=== PATIENT | male | born 1960 | race Two or more races ===

== ENCOUNTER → 2017-02-06 | Outpatient (REF) | payer MEDICAID | LOC: M LAB REF 08:30 | DX: L57.0 Actinic keratosis (principal) ==

== ENCOUNTER → 2017-05-20 | Outpatient (CLI) | payer OTHER ==
--- NOTE | 2017-06-10 01:04 | ECWPNPC ---
PATIENT NAME: DON CARMONA : 1960 GENDER: MALE VISIT DATE: 05/20/2017 DISCHARGE DATE: 05/20/17 1447 VISIT LOCKED DATE TIME: PHYSICIAN: RADHA LANG RESOURCE: RADHA LANG REASON FOR APPOINTMENT 1. LUMBAR HISTORY OF PRESENT ILLNESS NEW PATIENT CONSULT: WHEN DID YOUR PAIN FIRST START? . BRIEFLY DESCRIBE HOW YOUR PAIN STARTED? . HOW DOES YOUR PAIN CHANGE WITH TIME? . DOES YOUR PAIN AWAKEN YOU FROM SLEEP? . HOW MANY HOURS OF SLEEP DO YOU NORMALLY GET? . ANY DIAGNOSTIC TESTING? . FACILITY WHERE TESTS WERE DONE? ____. PAIN TREATMENT TREATMENT YES CANCER HAVE YOU EVER HAD ANY TYPE OF CANCER?NO NO. PAIN SCREENING: PATIENT HAS A COMPLAINT OF ACUTE OR CHRONIC PAIN :YES FALL RISK SCREENING: SCREENING :NO FALLS IN THE PAST YEAR MAGUIRE INVENTORY: QUESTIONNAIRE ASSESSEDYES SCORE VALUE CALCULATED YES SCORE: 22/63 DENIES SUICIDAL OR HOMICIDAL IDEATION TODAY'S VISIT: NOTES: PT REFERRED BY DR MARIA G PENNY FROM [facility] FOR FURTHER EVAL AN D TREATMENT OF LOW BACK AND CERVICAL PAIN. WAS PREVIOUSLY SEEN AT [facility] WITH LAST VISIT THERE 2 MONTHS AGO. REPORTS PAIN X 30 + YEARS THIS WAXES AND WANES. THIS IS MANAGEABLE. REPORTS WORST AREA OF PAIN IS IN LEGS L>R DUE TO THE CIRCULATION. HE HAS BEEN FOLLOWING WITH DR JASON PREVIOUSLY AT [facility]. STATES THAT LEG PAIN GOES AWAY IN 20 MINUNTES IF LAYING FLAT. NOTES HAS LITTLE TO NO SENSATION OVER LEFT LEG FROM KNEE TO FOOT. LEG IS SWOLLEN, AND BLUE IPURPLE IN COLOR. STATES SAY PCP DR GORDON YESTERDAY AND THE [facility] RECENTLY AND A NEW SURGERY IS BEING PLANNED FOR THIS. NOTES AN ICE PICK LIKE PAIN IN NECK AND ANY BENDING OR STRETCHING OR LIFTING IN LOW BACK. STATES PT MADE THINGS WORSE. WAS PREVIOUSLY ON TRAMADOL AND OTHER PAIN MEDS BUT THESE WERE STOPPED BY HIS PRIMARY CARE PROVIDER. LYRICA IS HELP WITH PAIN AND SENSITIVITY IN FEET. NO INJECTION TTREATMENTS HAVE BEEN DONE. RATES PAIN TODAY 8/10. DESCRIBES THE PAIN CONSTANT, SHARP SHOOTING AND THROBBING. PAIN IS CENTERED IN LOW LIBRA/SACRUM AND ENTIRE LEFT LEG.. CURRENT MEDICATIONS UNKNOWN AMLODIPINE BESYLATE 10 MG TABLET 1 TABLET ORALLY ONCE A DAY UNKNOWN ATORVASTATIN CALCIUM 40 MG TABLET 1 TABLET ORALLY ONCE A DAY UNKNOWN PLAVIX 75 MG TABLET 1 TABLET ORALLY ONCE A DAY UNKNOWN GLIMEPIRIDE 1 MG TABLET 1 TABLET WITH BREAKFAST OR THE FIRST MAIN MEAL OF THE DAY ORALLY ONCE A DAY UNKNOWN HYDROCHLOROTHIAZIDE 12.5 MG CAPSULE 1 CAPSULE IN THE MORNING ORALLY ONCE A DAY UNKNOWN LISINOPRIL 20 MG TABLET 1 TABLET ORALLY ONCE A DAY UNKNOWN METFORMIN HCL 1000 MG TABLET 1 TABLET WITH MEALS ORALLY TWICE A DAY UNKNOWN PENTOXIFYLLINE ER 400 MG TABLET EXTENDED RELEASE 1 TABLET WITH MEALS ORALLY THREE TIMES DAILY UNKNOWN LYRICA 200 MG CAPSULE 1 CAPSULE ORALLY TID MEDICATION LIST REVIEWED AND RECONCILED WITH THE PATIENT PAST MEDICAL HISTORY OSTEO ARTHRITIS DEGENERATIVE DISC DISEASE LUMBAR STENOSIS SKIN CANCER HEART MURMUR DIEBETES VASCULAR ARTERY DISEASE ALLERGIES AMPICILLIN: RASH SURGICAL HISTORY LEFT FEMORAL TO ILIAC BYPASS WITH PTFE GRAFT WITH STENT 2014 RIGHT ILIAC ARTERY/STENT 2015 FAMILY HISTORY FATHER: , DIAGNOSED WITH OTHER MOTHER: , DIAGNOSED WITH DIABETES SIBLINGS: UNKNOWN, DIAGNOSED WITH DIABETES, HEART DISEASE DAUGHTER(S): ALIVE YOUNGER SIBLINGS OF DSIEBETES3 CHILDREN. SOCIAL HISTORY GENERAL: TOBACCO USE ARE YOU A:CURRENT SMOKER HOW MANY CIGARETTES A DAY DO YOU SMOKE?21-30 HOW SOON AFTER YOU WAKE UP DO YOU SMOKE YOUR FIRST CIGARETTE?WITHIN 5 MIN HOW OFTEN DO YOU SMOKE CIGARETTES?EVERY DAY PATIENT COUNSELED ON THE DANGERS OF TOBACCO USE AND URGED TO QUIT:05/20/2017 ARE YOU INTERESTED IN QUITTING?THINKING ABOUT QUITTING COUNSELED THE PATIENT ON SMOKING CESSATION, EDUCATION [id number]/20/2017 ALCOHOL SCREENING POINTS2 INTERPRETATIONNEGATIVE OCCUPATION: DISABLED/ USE TO WORK IN [employer]. DIET: TRYING NOT TO USE SALT. EXERCISE: NONE. MARITAL STATUS: WICE. OTHERS AT HOME: VES ALONE. PETS: NONE. CHRISTIAN CHRISTIAN NO PREFERECE LANGUAGE LANGUAGES SPOKEN:ARMENIAN EDUCATION LEVEL OF EDUCATION:HIGH SCHOOL LEARNING BARRIERS / SPECIAL NEEDS BARRIERS TO LEARNING?YES SPECIAL DEVICES?YES PT USES [facility] PFS, CLERGY, PUBLIC HEALTH REFERRALS CLERGY REFERRAL NEEDED?NO WAS THE PROVIDER NOTIFIED OF ANY PERTINENT INFO?NO PFS REFERRAL NEEDED?NO PUBLIC HEALTH REFERRAL NEEDED?NO PATIENT: ____. HOSPITALIZATION/MAJOR DIAGNOSTIC PROCEDURE JUST FOR THE STENT PLACEMENTS REVIEW OF SYSTEMS REVIEWED BY: PROVIDER: RADHA WINN . CONSTITUTIONAL: ANY CHANGE IN YOUR MEDICAL CONDITION? NO . CHILLS NO . FEVER NO . INFECTION: DO YOU HAVE NEW INFECTIONS? NO . DO YOU HAVE HISTORY OF MRSA? NO . MUSCULOSKELETAL: ANY NEW PATTERNS OF PAIN OR NUMBNESS? NO . SYTEMIC LUPUS NO . GASTROENTEROLOGY: ANY NEW CHANGE IN BOWEL CONTROL? NO . BARRETTS ESOPHAGUS NO . CIRRHOSIS NO . HEPATITIS NO . LIVER FAILURE NO . ACID REFLUX NO . UNEXPLAINED WEIGHT LOSS NO . GENITOURINARY: ANY NEW CHANGE IN BLADDER CONTROL? NO . IS THERE A CHANCE YOU COULD BE ? NO . HEMATOLOGY/LYMPH: DO YOU TAKE ANY BLOOD THINNERS? (FOR EXAMPLE- COUMADIN, PLAVIX, AGGRENOX, PLATEL, PRADAXA, OR XARELTO) YES PLAVIX . WHEN WAS YOUR LAST DOSE? DATE: TIME: . LOW PLATELET COUNT NO . SICKLE CELL DISEASE NO . VON WILLIEBRANDS NO . FACTOR V LEIDEN NO . THALLASEMIA NO . ANEMIA NO . EASY BRUISING NO . NEUROLOGY: HAVE YOU FALLEN IN THE PAST 6 MONTHS? NO . ANY NEW EXTREMITY NUMBNESS OR WEAKNESS? NO . HEAD INJURY NO . DEMENTIA NO . CEREBRAL PALSY NO . MULTIPLE SCLEROSIS NO . DIZZINESS NO . HEADACHE BILATERAL FROM SUNLIGHT . STROKES NO . VERTIGO WHILE GETTING UP FROM A SITTING POSITION . CARDIOLOGY: DO YOU HAVE A PACEMAKER OR DEFIBRILLATOR? NO . ANGINA NO . HEART ATTACK NO . HEART SURGERY NO . CONGESTIVE HEART FAILURE/FLUID OVERLOAD NO . CHEST PAIN NO . HIGH BLOOD PRESSURE ON MEDICATION(S) . IRREGULAR HEART BEAT NO . RESPIRATORY: HAVE YOU BEEN SICK IN THE PAST WEEK? NO . FEVER NO . FLU LIKE SYMPTOMS? NO . CPAP NO . BYPAP NO . ASTHMA NO . EMPHYSEMA NO . CHRONIC LUNG DISEASES NO . SHORTNESS OF BREATH ON EXERTION NO . DO YOU USE ANY TYPE OF TOBACCO (SMOKE, SMOKELESS, CHEW)? YES WORKING ON SMOKING CESSATION . COUGH NO . SNORING NO . INTEGUMENTARY: DO YOU HAVE ANY RASHES OR OPEN SORES? NO LEFT LEG IS RED AND SWOLLEN . ALLERGIC/IMMUNO: ARE YOU ALLERGIC TO SHELLFISH OR IV DYE? NO . ANY NEW ALLERGIES? NO . PSYCHIATRIC: DO YOU HAVE THOUGHTS OF HURTING YOURSELF OR SOMEONE ELSE? NO . ARE YOU ABUSED, NEGLECTED, OR IN AN UNSAFE ENVIRONMENT? NO . ENDOCRINOLOGY: ARE YOU DIABETIC? YES BLOOD SUGARS 150 - 300 . THYROID DISORDER NO . OTHER: DO YOU NEED ANY PRESCRIPTIONS? NO . IF YES, PLEASE LIST: ____ . ANY NEW PROBLEMS WITH YOUR MEDICATIONS? NO . WHEN DID YOU LAST EAT? ____ . WHEN DID YOU LAST DRINK? ____ . WHAT DID YOU LAST DRINK? ____ . NAME OF PERSON DRIVING YOU HOME? ____ . DO YOU HAVE ANY OTHER QUESTIONS OR CONCERNS NO . VITAL SIGNS WT 222.0 LBS, HT 67", BMI 34.77 INDEX, BP 150/66 MM HG, HR 75 /MIN, RR 16 /MIN, TEMP 97.7 F, OXYGEN SAT % 96%, NA INITIALS TL 1321, REVIEWED BY: KG. EXAMINATION GENERAL EXAMINATION: PSYCHALERT , ORIENTED X 3 , APPROPRIATE MOOD AND AFFECT , TALKATIVE BUT HAS DIFFICULTY REMAINING ON [employer]. HEENT:NORMOCEPHALIC, NO LYMPHADENOPATHY, NO THYROMEGLY. LUNGS:CLEAR TO AUSCULTATION, DECREASED AIR ENTRY AT BASES, NO WHEEZES, RALES OR RHONCHI. HEART:NO CAROTID BRUITS, NORMAL S1S2, HEART RATE REGULAR. ABDOMEN:BOWEL SOUNDS ACTIVE. TENDER TO PALPATIO OVER LEFT ILIO-INGUINAL /SCAR AREA. . MUSCULOSKELETAL:GENERALIZED DECREASE IN MUSCLE STRENGTH BILATERAL LOWER EXTREMITIES, L>R. GENRALIZED TENDERNESS WITH PALPATION OVER LUMBAR SPINOUS PROCESSES. NO SPECIFIC SI JOINT TENDERNESS. NEGATIVE SLR. NEG GLADYS SIGN. . EXTREMITIES:1+, EDEMA BILATERAL LOWER EXTREMITY. PEDAL PULSE TRACE TO ABSENT LEFT, 2 + RIGHT DP. LEFT FOOT DUSKY PURPLE IN COLOR. . DIAGNOSTIC TESTS REVIEWEDMRI OF LUMBAR SPINE COMPLETED 10/25/16 REVIEWED. DEMONSTRATES DISC DESSICATION, ANNULAR TEARS WITHIN THE DISCS AT L4-5 AND L5-S1. MILD POSTERIOR DISC HERNIATION AT L5-S1 WHICH DOES NOT CAUSE SIGNIFICANT COMPROMISE OF SPINAL CORD. MULTIPLE LEVELS OF DISC OSTEOPHYTE COMPLEXES. MILD TO MODERAT SPINAL CANAL STENOSIS AT L4-5. 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 PROCEDURE CODES FA211 ESTABILISHED PATIENT [facility] CHARGE DISPOSITION & COMMUNICATION FOLLOW UP 1 MONTH (REASON: BACK PAIN/LEG PAIN) ELECTRONICALLY SIGNED BY MASOOD CHE ON 06/09/2017 AT 08:39 AM EDT DISCLAIMER : THIS IS A VISIT SUMMARY EXTRACTED FROM THE [employer] CHART. IT IS NOT A COPY OF THE [employer] PROGRESS NOTE. ABRAN
== END ==
LOC: M PAIN 13:20
PROVIDERS: ATTEND Nurse Practitioner Family
DX: M51.26 Other intervertebral disc displacement, lumbar region (principal); G58.9 Mononeuropathy, unspecified; M25.559 Pain in unspecified hip; G89.29 Other chronic pain; Z79.899 Other long term (current) drug therapy; Z79.84 Long term (current) use of oral hypoglycemic drugs; Z79.82 Long term (current) use of aspirin; Z88.0 Allergy status to penicillin; F17.210 Nicotine dependence, cigarettes, uncomplicated

== ENCOUNTER → 2017-06-18 | Outpatient (CLI) | payer OTHER ==
--- NOTE | 2017-07-09 00:38 | ECWPNPC ---
PATIENT NAME: DON CARMONA : 1960 GENDER: MALE VISIT DATE: 06/18/2017 DISCHARGE DATE: 06/18/17 1045 VISIT LOCKED DATE TIME: PHYSICIAN: RADHA LANG RESOURCE: RADHA LANG REASON FOR APPOINTMENT 1. BACK PAIN/LEG PAIN HISTORY OF PRESENT ILLNESS HISTORY OF PRESENT ILLNESS: PAIN THE PATIENT DESCRIBES THE PAIN... FALL RISK SCREENING: SCREENING :NO FALLS IN THE PAST YEAR TODAY'S VISIT: NOTES: RATES PAIN TODAY 8/10. TODAY WORST PAIN IS IN LEFT LEG. HAS HAD INFECTION IN LEFT CARTER AND IS ON ANTIBIOTICS. IS HAVING GI EFFECTS FROM ANTIBIOTICS.. CURRENT MEDICATIONS TAKING TRAMADOL HCL 50 MG TABLET 1 TABLET NEEDED ORALLY EVERY 6 HRS PRN PAIN MDD=2 TAKING AMLODIPINE BESYLATE 10 MG TABLET 1 TABLET ORALLY ONCE A DAY TAKING ATORVASTATIN CALCIUM 40 MG TABLET 1 TABLET ORALLY ONCE A DAY TAKING PLAVIX 75 MG TABLET 1 TABLET ORALLY ONCE A DAY TAKING GLIMEPIRIDE 1 MG TABLET 1 TABLET WITH BREAKFAST OR THE FIRST MAIN MEAL OF THE DAY ORALLY ONCE A DAY TAKING HYDROCHLOROTHIAZIDE 12.5 MG CAPSULE 1 CAPSULE IN THE MORNING ORALLY ONCE A DAY TAKING LISINOPRIL 20 MG TABLET 1 TABLET ORALLY ONCE A DAY TAKING METFORMIN HCL 1000 MG TABLET 1 TABLET WITH MEALS ORALLY TWICE A DAY TAKING PENTOXIFYLLINE ER 400 MG TABLET EXTENDED RELEASE 1 TABLET WITH MEALS ORALLY THREE TIMES DAILY TAKING LYRICA 200 MG CAPSULE 1 CAPSULE ORALLY TID MEDICATION LIST REVIEWED AND RECONCILED WITH THE PATIENT PAST MEDICAL HISTORY OSTEO ARTHRITIS DEGENERATIVE DISC DISEASE LUMBAR STENOSIS SKIN CANCER HEART MURMUR DIEBETES VASCULAR ARTERY DISEASE ALLERGIES AMPICILLIN: RASH REVIEW OF SYSTEMS REVIEWED BY: PROVIDER: RADHA LANG PACKER DENTURE . CONSTITUTIONAL: ANY CHANGE IN YOUR MEDICAL CONDITION? NO . CHILLS NO . FEVER NO . INFECTION: DO YOU HAVE NEW INFECTIONS? YES, LEFT LOWER LEG DOWN TO ANKLE. ON ANTIBIOTICS NOW. . DO YOU HAVE HISTORY OF MRSA? NO . MUSCULOSKELETAL: ANY NEW PATTERNS OF PAIN OR NUMBNESS? NO . GASTROENTEROLOGY: ANY NEW CHANGE IN BOWEL CONTROL? NO . GENITOURINARY: ANY NEW CHANGE IN BLADDER CONTROL? NO . IS THERE A CHANCE YOU COULD BE ? NO . HEMATOLOGY/LYMPH: DO YOU TAKE ANY BLOOD THINNERS? (FOR EXAMPLE- COUMADIN, PLAVIX, AGGRENOX, PLATEL, PRADAXA, OR XARELTO) YES, PLAVIX . WHEN WAS YOUR LAST DOSE? DATE: TIME: 06-17-17 1200 . NEUROLOGY: HAVE YOU FALLEN IN THE PAST 6 MONTHS? NO . ANY NEW EXTREMITY NUMBNESS OR WEAKNESS? NO . CARDIOLOGY: DO YOU HAVE A PACEMAKER OR DEFIBRILLATOR? NO . RESPIRATORY: HAVE YOU BEEN SICK IN THE PAST WEEK? NO . FEVER NO . FLU LIKE SYMPTOMS? NO . COUGH NO . INTEGUMENTARY: DO YOU HAVE ANY RASHES OR OPEN SORES? NO . ALLERGIC/IMMUNO: ARE YOU ALLERGIC TO SHELLFISH OR IV DYE? NO . ANY NEW ALLERGIES? NO . PSYCHIATRIC: DO YOU HAVE THOUGHTS OF HURTING YOURSELF OR SOMEONE ELSE? NO . ARE YOU ABUSED, NEGLECTED, OR IN AN UNSAFE ENVIRONMENT? NO . ENDOCRINOLOGY: ARE YOU DIABETIC? YES . OTHER: DO YOU NEED ANY PRESCRIPTIONS? NO . IF YES, PLEASE LIST: ____ . ANY NEW PROBLEMS WITH YOUR MEDICATIONS? NO . WHEN DID YOU LAST EAT? ____ . WHEN DID YOU LAST DRINK? ____ . WHAT DID YOU LAST DRINK? ____ . NAME OF PERSON DRIVING YOU HOME? ____ . DO YOU HAVE ANY OTHER QUESTIONS OR CONCERNS NO . VITAL SIGNS WT 220.8 LBS, HT 67", BMI 34.58 INDEX, BP 123/70 MM HG, HR 74 /MIN, RR 18 /MIN, TEMP 97.3 F, OXYGEN SAT % 96%, NA INITIALS SC10:19, REVIEWED BY: JOSE G. EXAMINATION GENERAL EXAMINATION: PSYCHALERT , ORIENTED X 3 , APPROPRIATE MOOD AND AFFECT , TALKATIVE BUT HAS DIFFICULTY REMAINING ON [employer]. LUNGS:CLEAR TO AUSCULTATION, DECREASED AIR ENTRY AT BASES, NO WHEEZES, RALES OR RHONCHI. HEART:HEART RATE REGULAR. ABDOMEN:BOWEL SOUNDS ACTIVE. TENDER TO PALPATIO OVER LEFT ILIO-INGUINAL /SCAR AREA. . MUSCULOSKELETAL:GENERALIZED DECREASE IN MUSCLE STRENGTH BILATERAL LOWER EXTREMITIES, L>R. GENRALIZED TENDERNESS WITH PALPATION OVER LUMBAR SPINOUS PROCESSES. POSTURE STOOPED. GAIT, SLOW NONANTALGIC. EXTREMITIES:1+, EDEMA BILATERAL LOWER EXTREMITY. PEDAL PULSE TRACE TO ABSENT LEFT, 2 + RIGHT DP. LEFT FOOT DUSKY PURPLE IN COLOR. . 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 CLINICAL NOTES: REPORTS TRAMADOL AND LYRICA ARE HELPFUL IN MANAGING THE PAIN. PROCEDURE CODES FA211 ESTABILISHED PATIENT [facility] CHARGE DISPOSITION & COMMUNICATION FOLLOW UP 7 WEEKS (REASON: BACK PAIN) ELECTRONICALLY SIGNED BY MASOOD CHE ON 07/07/2017 AT 08:42 AM EDT DISCLAIMER : THIS IS A VISIT SUMMARY EXTRACTED FROM THE [employer] CHART. IT IS NOT A COPY OF THE [employer] PROGRESS NOTE. MELONIED
== END ==
LOC: M PAIN 10:00
PROVIDERS: ATTEND Nurse Practitioner Family
DX: M51.26 Other intervertebral disc displacement, lumbar region (principal); G58.9 Mononeuropathy, unspecified; M25.559 Pain in unspecified hip; G89.29 Other chronic pain; E11.9 Type 2 diabetes mellitus without complications; I73.9 Peripheral vascular disease, unspecified; Z79.891 Long term (current) use of opiate analgesic; Z79.84 Long term (current) use of oral hypoglycemic drugs; Z79.899 Other long term (current) drug therapy; Z88.0 Allergy status to penicillin

== ENCOUNTER → 2017-08-08 | Outpatient (CLI) | payer OTHER ==
--- NOTE | 2017-08-27 02:14 | ECWPNPC ---
PATIENT NAME: DON CARMONA : 1960 GENDER: MALE VISIT DATE: 08/08/2017 DISCHARGE DATE: 08/08/17 1125 VISIT LOCKED DATE TIME: PHYSICIAN: RADHA LANG RESOURCE: RADHA LANG REASON FOR APPOINTMENT 1. BACK PAIN HISTORY OF PRESENT ILLNESS HISTORY OF PRESENT ILLNESS: PAIN THE PATIENT DESCRIBES THE PAIN... FALL RISK SCREENING: SCREENING :NO FALLS IN THE PAST YEAR TODAY'S VISIT: NOTES: RATES PAIN LEVEL TODAY 9/10. DESCRIBES PAIN CONSTANT, ACHING, BURNING, SHARP AND STABBING, THROBBING, SHOOTING AND SORE. PAIN IS CENTERED IN LOW NBACK WITH RADIATION TO THE LEFT LEG., AND IN THE RIGHT SHOULDER. NOTES RIDING IN THE CAR IS VERY PAINFUL. CURRENT MEDICATIONS TAKING AMLODIPINE BESYLATE 10 MG TABLET 1 TABLET ORALLY ONCE A DAY TAKING ATORVASTATIN CALCIUM 40 MG TABLET 1 TABLET ORALLY ONCE A DAY TAKING PLAVIX 75 MG TABLET 1 TABLET ORALLY ONCE A DAY TAKING GLIMEPIRIDE 1 MG TABLET 1 TABLET WITH BREAKFAST OR THE FIRST MAIN MEAL OF THE DAY ORALLY ONCE A DAY TAKING HYDROCHLOROTHIAZIDE 12.5 MG CAPSULE 1 CAPSULE IN THE MORNING ORALLY ONCE A DAY TAKING LISINOPRIL 20 MG TABLET 1 TABLET ORALLY ONCE A DAY TAKING METFORMIN HCL 1000 MG TABLET 1 TABLET WITH MEALS ORALLY TWICE A DAY TAKING PENTOXIFYLLINE ER 400 MG TABLET EXTENDED RELEASE 1 TABLET WITH MEALS ORALLY TWICE DAILY TAKING LYRICA 200 MG CAPSULE 1 CAPSULE ORALLY TID TAKING TRAMADOL HCL 50 MG TABLET 1 TABLET NEEDED ORALLY EVERY 6 HRS PRN PAIN MDD=2 MEDICATION LIST REVIEWED AND RECONCILED WITH THE PATIENT PAST MEDICAL HISTORY OSTEO ARTHRITIS DEGENERATIVE DISC DISEASE LUMBAR STENOSIS SKIN CANCER HEART MURMUR DIABETES VASCULAR ARTERY DISEASE ALLERGIES AMPICILLIN: RASH REVIEW OF SYSTEMS REVIEWED BY: PROVIDER: RADHA LANG RN IMMUNOLOGY . CONSTITUTIONAL: ANY CHANGE IN YOUR MEDICAL CONDITION? NO . CHILLS NO . FEVER NO . INFECTION: DO YOU HAVE NEW INFECTIONS? NO . DO YOU HAVE HISTORY OF MRSA? NO . MUSCULOSKELETAL: ANY NEW PATTERNS OF PAIN OR NUMBNESS? NO . GASTROENTEROLOGY: ANY NEW CHANGE IN BOWEL CONTROL? NO . GENITOURINARY: ANY NEW CHANGE IN BLADDER CONTROL? NO . IS THERE A CHANCE YOU COULD BE ? NO . HEMATOLOGY/LYMPH: DO YOU TAKE ANY BLOOD THINNERS? (FOR EXAMPLE- COUMADIN, PLAVIX, AGGRENOX, PLATEL, PRADAXA, OR XARELTO) NO . WHEN WAS YOUR LAST DOSE? DATE: TIME: . NEUROLOGY: HAVE YOU FALLEN IN THE PAST 6 MONTHS? YES . ANY NEW EXTREMITY NUMBNESS OR WEAKNESS? NO . CARDIOLOGY: DO YOU HAVE A PACEMAKER OR DEFIBRILLATOR? NO . RESPIRATORY: HAVE YOU BEEN SICK IN THE PAST WEEK? NO . FEVER NO . FLU LIKE SYMPTOMS? NO . COUGH NO . INTEGUMENTARY: DO YOU HAVE ANY RASHES OR OPEN SORES? YES . ALLERGIC/IMMUNO: ARE YOU ALLERGIC TO SHELLFISH OR IV DYE? NO . ANY NEW ALLERGIES? NO . PSYCHIATRIC: DO YOU HAVE THOUGHTS OF HURTING YOURSELF OR SOMEONE ELSE? NO . ARE YOU ABUSED, NEGLECTED, OR IN AN UNSAFE ENVIRONMENT? NO . ENDOCRINOLOGY: ARE YOU DIABETIC? YES . OTHER: DO YOU NEED ANY PRESCRIPTIONS? NO . IF YES, PLEASE LIST: ____ . ANY NEW PROBLEMS WITH YOUR MEDICATIONS? NO . WHEN DID YOU LAST EAT? ____ . WHEN DID YOU LAST DRINK? ____ . WHAT DID YOU LAST DRINK? ____ . NAME OF PERSON DRIVING YOU HOME? ____ . DO YOU HAVE ANY OTHER QUESTIONS OR CONCERNS LEFT ANTERIOR LOWER LEG WITH REDNESS SCRATCHES TO RIGHT LOWER LEG FROM BLACKBERRIES . VITAL SIGNS WT 222 LBS, HT 67", BMI 34.77 INDEX, BP 133/65 MM HG, HR 70 /MIN, RR 16 /MIN, TEMP 96.7 F, OXYGEN SAT % 97%, NA INITIALS SC 10:44. EXAMINATION GENERAL EXAMINATION: PSYCHALERT , ORIENTED X 3 , APPROPRIATE MOOD AND AFFECT , TALKATIVE BUT HAS DIFFICULTY REMAINING ON [employer]. LUNGS:CLEAR TO AUSCULTATION, DECREASED AIR ENTRY AT BASES, NO WHEEZES, RALES OR RHONCHI. HEART:HEART RATE REGULAR. ABDOMEN:BOWEL SOUNDS ACTIVE. TENDER TO PALPATIO OVER LEFT ILIO-INGUINAL /SCAR AREA. . MUSCULOSKELETAL:GENERALIZED DECREASE IN MUSCLE STRENGTH BILATERAL LOWER EXTREMITIES, L>R. GENRALIZED TENDERNESS WITH PALPATION OVER LUMBAR SPINOUS PROCESSES. POSTURE STOOPED. GAIT, SLOW NONANTALGIC. EXTREMITIES:1+, EDEMA BILATERAL LOWER EXTREMITY. PEDAL PULSE TRACE TO ABSENT LEFT, 2 + RIGHT DP. LEFT FOOT DUSKY PURPLE IN COLOR. . 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 CALL DR GORDON ABOUT CELLULITIS LEFT LEG. PREVENTIVE MEDICINE GAVE INFO ON BACLOFEN. PROCEDURE CODES FA211 ESTABILISHED PATIENT [facility] CHARGE DISPOSITION & COMMUNICATION FOLLOW UP WEEK October (REASON: BACK/LEG PAIN) ELECTRONICALLY SIGNED BY MASOOD CHE ON 08/26/2017 AT 06:25 PM EDT DISCLAIMER : THIS IS A VISIT SUMMARY EXTRACTED FROM THE [employer] CHART. IT IS NOT A COPY OF THE [employer] PROGRESS NOTE. ABRAN
== END ==
LOC: M PAIN 10:40
PROVIDERS: ATTEND Nurse Practitioner Family
DX: M51.26 Other intervertebral disc displacement, lumbar region (principal); G58.9 Mononeuropathy, unspecified; M25.559 Pain in unspecified hip; G89.29 Other chronic pain; M25.511 Pain in right shoulder; E11.9 Type 2 diabetes mellitus without complications; Z79.82 Long term (current) use of aspirin; Z79.84 Long term (current) use of oral hypoglycemic drugs; Z79.891 Long term (current) use of opiate analgesic; Z79.899 Other long term (current) drug therapy; Z88.0 Allergy status to penicillin

== ENCOUNTER → 2017-10-31 | Outpatient (CLI) | payer OTHER ==
--- NOTE | 2017-11-01 00:53 | ECWPNPC ---
PATIENT NAME: DON CARMONA : 1960 GENDER: MALE VISIT DATE: 10/31/2017 DISCHARGE DATE: 10/31/17 1046 VISIT LOCKED DATE TIME: PHYSICIAN: RADHA LANG RESOURCE: RADHA LANG REASON FOR APPOINTMENT 1. BACK/HIP HISTORY OF PRESENT ILLNESS HISTORY OF PRESENT ILLNESS: PAIN THE PATIENT DESCRIBES THE PAIN... FALL RISK SCREENING: SCREENING :NO FALLS IN THE PAST YEAR TODAY'S VISIT: NOTES: RATES PAIN TODAY 08/10 BUT THIS IS PRIMARILY THE SHOULDER. LEFT FOOT IS STILL NUMB AND PAINFUL. TRAMADOL IS HELPFUL FOR THE BACK AND FOOT BUT NOT HELPING THE SHOULDER. . CURRENT MEDICATIONS TAKING DULOXETINE HCL 60 MG CAPSULE DELAYED RELEASE PARTICLES 1 CAPSULE ORALLY BID TAKING INVOKANA 100 MG TABLET 1 TABLET ORALLY ONCE A DAY TAKING AMLODIPINE BESYLATE 10 MG TABLET 1 TABLET ORALLY ONCE A DAY TAKING ATORVASTATIN CALCIUM 40 MG TABLET 1 TABLET ORALLY ONCE A DAY TAKING PLAVIX 75 MG TABLET 1 TABLET ORALLY ONCE A DAY TAKING GLIMEPIRIDE 1 MG TABLET 1 TABLET WITH BREAKFAST OR THE FIRST MAIN MEAL OF THE DAY ORALLY ONCE A DAY TAKING HYDROCHLOROTHIAZIDE 12.5 MG CAPSULE 1 CAPSULE IN THE MORNING ORALLY ONCE A DAY TAKING LISINOPRIL 20 MG TABLET 1 TABLET ORALLY ONCE A DAY TAKING METFORMIN HCL 1000 MG TABLET 1 TABLET WITH MEALS ORALLY TWICE A DAY TAKING PENTOXIFYLLINE ER 400 MG TABLET EXTENDED RELEASE 1 TABLET WITH MEALS ORALLY TWICE DAILY TAKING LYRICA 200 MG CAPSULE 1 CAPSULE ORALLY TID TAKING TRAMADOL HCL 50 MG TABLET 1-2 TABLET NEEDED ORALLY EVERY 6 HRS PRN PAIN MDD=4 TAKING BACLOFEN 10 MG TABLET 1 TABLET WITH FOOD OR MILK ORALLY DAILY NEEDED FOR SEVERE SPASM MEDICATION LIST REVIEWED AND RECONCILED WITH THE PATIENT PAST MEDICAL HISTORY OSTEO ARTHRITIS DEGENERATIVE DISC DISEASE LUMBAR STENOSIS SKIN CANCER HEART MURMUR DIABETES VASCULAR ARTERY DISEASE ALLERGIES AMPICILLIN: RASH SOCIAL HISTORY GENERAL: TOBACCO USE ARE YOU A:CURRENT SMOKER NO DESIRE TO QUIT SMOKING TODAY 10/31/17 ARE YOU INTERESTED IN QUITTING?THINKING ABOUT QUITTING COUNSELED THE PATIENT ON SMOKING CESSATION, EDUCATION [id number]/20/2017 HOW MANY CIGARETTES A DAY DO YOU SMOKE?21-30 HOW SOON AFTER YOU WAKE UP DO YOU SMOKE YOUR FIRST CIGARETTE?WITHIN 5 MIN HOW OFTEN DO YOU SMOKE CIGARETTES?EVERY DAY PATIENT COUNSELED ON THE DANGERS OF TOBACCO USE AND URGED TO QUIT:05/20/2017 ALCOHOL SCREENING DID YOU HAVE A DRINK CONTAINING ALCOHOL IN THE PAST YEAR?YES HOW OFTEN DID YOU HAVE A DRINK CONTAINING ALCOHOL IN THE PAST YEAR?MONTHLY OR LESS (1 POINT) HOW MANY DRINKS DID YOU HAVE ON A TYPICAL DAY WHEN YOU WERE DRINKING IN THE PAST YEAR?3 OR 4 (1 POINT) POINTS2 INTERPRETATIONNEGATIVE OCCUPATION: DISABLED/ USE TO WORK IN [employer]. DIET: TRYING NOT TO USE SALT. EXERCISE: NONE. MARITAL STATUS: WICE. OTHERS AT HOME: VES ALONE. PETS: NONE. 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 NO , CLERGY REFERRAL NEEDED? NO , PUBLIC HEALTH REFERRAL NEEDED? NO , WAS THE PROVIDER NOTIFIED OF ANY PERTINENT INFO? NO . PATIENT: ____. REVIEW OF SYSTEMS REVIEWED BY: PROVIDER: . CONSTITUTIONAL: ANY CHANGE IN YOUR MEDICAL CONDITION? YES, RIGHT ARM . CHILLS NO . FEVER NO . INFECTION: DO YOU HAVE NEW INFECTIONS? NO . DO YOU HAVE HISTORY OF MRSA? NO . MUSCULOSKELETAL: ANY NEW PATTERNS OF PAIN OR NUMBNESS? YES . GASTROENTEROLOGY: ANY NEW CHANGE IN BOWEL CONTROL? NO . GENITOURINARY: ANY NEW CHANGE IN BLADDER CONTROL? NO . IS THERE A CHANCE YOU COULD BE ? NO . HEMATOLOGY/LYMPH: DO YOU TAKE ANY BLOOD THINNERS? (FOR EXAMPLE- COUMADIN, PLAVIX, AGGRENOX, PLATEL, PRADAXA, OR XARELTO) NO . WHEN WAS YOUR LAST DOSE? DATE: TIME: . NEUROLOGY: HAVE YOU FALLEN IN THE PAST 6 MONTHS? NO . ANY NEW EXTREMITY NUMBNESS OR WEAKNESS? NO . CARDIOLOGY: DO YOU HAVE A PACEMAKER OR DEFIBRILLATOR? NO . PATIENT DENIES CHEST PAIN . RESPIRATORY: HAVE YOU BEEN SICK IN THE PAST WEEK? NO . FEVER NO . FLU LIKE SYMPTOMS? NO . COUGH NO . INTEGUMENTARY: DO YOU HAVE ANY RASHES OR OPEN SORES? NO . ALLERGIC/IMMUNO: ARE YOU ALLERGIC TO SHELLFISH OR IV DYE? NO . ANY NEW ALLERGIES? NO . PSYCHIATRIC: DO YOU HAVE THOUGHTS OF HURTING YOURSELF OR SOMEONE ELSE? NO . ARE YOU ABUSED, NEGLECTED, OR IN AN UNSAFE ENVIRONMENT? NO . ENDOCRINOLOGY: ARE YOU DIABETIC? YES . OTHER: DO YOU NEED ANY PRESCRIPTIONS? YES . IF YES, PLEASE LIST: TRAMADOL, BACLOFEN . ANY NEW PROBLEMS WITH YOUR MEDICATIONS? NO . WHEN DID YOU LAST EAT? ____ . WHEN DID YOU LAST DRINK? ____ . WHAT DID YOU LAST DRINK? ____ . NAME OF PERSON DRIVING YOU HOME? ____ . DO YOU HAVE ANY OTHER QUESTIONS OR CONCERNS RIGHT SHOULDER PAIN . VITAL SIGNS WT 217 LBS, HT 67", BMI 33.98 INDEX, BP 109/58 MM HG, HR 65 /MIN, RR 18 /MIN, TEMP 96.8 F, OXYGEN SAT % 97%, NA INITIALS SC 10:06, REVIEWED BY: NL. EXAMINATION GENERAL EXAMINATION: LUNGS:DECREASED AIR ENTRY AT BASES, FEW SCATTERED WHEEZES. HEART:HEART RATE REGULAR. MUSCULOSKELETAL:MUSCLE STRENGTH TESTING 5/5 BILATERAL LOWER EXTREMITES. WEAKNESS OVER RUE. PAIN AT RIGHT AC JOINT. EXTREMITIES:LEFT TOES COOL, DUSKY BLIE. 1+ DP PULSE. TRACE EDEMA BILATERAL LOWER EXTREMITIES.. SKIN:HEALED ULCER NOTED LEFT CARTER. 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 IS NOT A CANDIDATE FOR SPINAL INJECTIONS HE CAN NOT STOP HIS PLAVIX.OK FOR ORTHO TO ADD SHORRT TERM PAIN MEDS FOR RIGHT SHOULDER PAIN, ESPECIALLY IF HE HAS SURGERY OR PT. PROCEDURE CODES FA211 ESTABILISHED PATIENT [facility] CHARGE DISPOSITION & COMMUNICATION FOLLOW UP 2 MONTHS (REASON: LEFT LEG/BACK PAIN) ELECTRONICALLY SIGNED BY MASOOD CHE ON 10/31/2017 AT 11:31 AM EST DISCLAIMER : THIS IS A VISIT SUMMARY EXTRACTED FROM THE [facility] CHART. IT IS NOT A COPY OF THE [facility] PROGRESS NOTE. MTDD
== END ==
LOC: M PAIN 10:00
PROVIDERS: ATTEND Nurse Practitioner Family
DX: G89.29 Other chronic pain (principal); M51.26 Other intervertebral disc displacement, lumbar region; G58.9 Mononeuropathy, unspecified; M25.559 Pain in unspecified hip; E11.9 Type 2 diabetes mellitus without complications; F17.210 Nicotine dependence, cigarettes, uncomplicated; Z88.1 Allergy status to other antibiotic agents; Z79.84 Long term (current) use of oral hypoglycemic drugs; Z79.891 Long term (current) use of opiate analgesic; Z79.899 Other long term (current) drug therapy

== ENCOUNTER → 2018-01-05 | Outpatient (CLI) | payer OTHER | LOC: M PAIN 10:00 | DX: M51.26 Other intervertebral disc displacement, lumbar region (principal); G58.9 Mononeuropathy, unspecified; M25.559 Pain in unspecified hip; G89.29 Other chronic pain; E11.9 Type 2 diabetes mellitus without complications; M19.90 Unspecified osteoarthritis, unspecified site; F17.210 Nicotine dependence, cigarettes, uncomplicated; Z79.84 Long term (current) use of oral hypoglycemic drugs; Z79.899 Other long term (current) drug therapy; Z88.1 Allergy status to other antibiotic agents; Z95.5 Presence of coronary angioplasty implant and graft | CPT/HCPCS: G0463 ==

== ENCOUNTER → 2018-03-30 | Outpatient (CLI) | payer OTHER | LOC: M PAIN 10:00 | DX: G89.29 Other chronic pain (principal); M51.26 Other intervertebral disc displacement, lumbar region; G58.9 Mononeuropathy, unspecified; M25.552 Pain in left hip; M19.90 Unspecified osteoarthritis, unspecified site; M48.061 Spinal stenosis, lumbar region without neurogenic claudication; E11.51 Type 2 diabetes mellitus with diabetic peripheral angiopathy without gangrene; F17.210 Nicotine dependence, cigarettes, uncomplicated; Z85.828 Personal history of other malignant neoplasm of skin; Z79.02 Long term (current) use of antithrombotics/antiplatelets; Z79.84 Long term (current) use of oral hypoglycemic drugs; Z79.891 Long term (current) use of opiate analgesic; Z79.899 Other long term (current) drug therapy; Z88.1 Allergy status to other antibiotic agents | CPT/HCPCS: G0463 ==

== ENCOUNTER → 2018-07-08 | Outpatient (CLI) | payer OTHER | LOC: M RAD 12:14 | DX: I70.302 Unspecified atherosclerosis of unspecified type of bypass graft(s) of the extremities, left leg (principal); I70.211 Atherosclerosis of native arteries of extremities with intermittent claudication, right leg; I70.0 Atherosclerosis of aorta; F17.218 Nicotine dependence, cigarettes, with other nicotine-induced disorders | CPT/HCPCS: 93925 ==

== ENCOUNTER → 2018-07-10 | Outpatient (CLI) | payer OTHER | LOC: M PAIN 13:45 | DX: M51.26 Other intervertebral disc displacement, lumbar region (principal); G58.9 Mononeuropathy, unspecified; M25.559 Pain in unspecified hip; G89.29 Other chronic pain; M19.90 Unspecified osteoarthritis, unspecified site; R01.1 Cardiac murmur, unspecified; E11.9 Type 2 diabetes mellitus without complications; F17.210 Nicotine dependence, cigarettes, uncomplicated; Z79.84 Long term (current) use of oral hypoglycemic drugs; Z79.01 Long term (current) use of anticoagulants; Z79.899 Other long term (current) drug therapy; Z88.1 Allergy status to other antibiotic agents; Z86.79 Personal history of other diseases of the circulatory system | CPT/HCPCS: G0463 ==

== ENCOUNTER → 2018-08-13 | Outpatient (CLI) | payer OTHER ==
[~2018-08-13] MED LIST: HEPARIN 1,000 UNITS/ML 10ML VIAL (FOR RADIOLOGY& DIALYSIS ONLY) As Ordered; ISOVUE-300 61% 50ML VIAL (Q9967) As Ordered; ISOVUE-370 76% 100ML VIAL (Q9967) As Ordered; LIDOCAINE 2% MDV 20 ML VIAL As Ordered; MIDAZOLAM INJ 2 MG/2 ML VIAL (J2250) As Ordered; fentaNYL 100 MCG/2 ML INJECTION (J3010) As Ordered
== END | disposition home or self-care (01) ==
LOC: M IRPRO 07:39
DX: I73.9 Peripheral vascular disease, unspecified (principal); I87.2 Venous insufficiency (chronic) (peripheral); I10 Essential (primary) hypertension; E11.51 Type 2 diabetes mellitus with diabetic peripheral angiopathy without gangrene; F17.210 Nicotine dependence, cigarettes, uncomplicated; Z53.09 Procedure and treatment not carried out because of other contraindication
CPT/HCPCS: 36140

== ENCOUNTER → 2018-10-19 | Outpatient (CLI) | payer OTHER ==
[~2018-10-19] MED LIST changes: -ISOVUE-370 76% 100ML VIAL (Q9967) As Ordered
[2018-10-19 09:51] LABS: ANION GAP 9 MEQ/L (8-16); BLOOD UREA NITROGEN 17 MG/DL (7-18); CALCIUM LEVEL 9.2 MG/DL (8.5-10.1); CARBON DIOXIDE LEVEL 26 MEQ/L (21-32); CHLORIDE LEVEL 107 MEQ/L (98-107); GLOMERULAR FILTRATION RATE > 60.0 (>56); GLUCOSE, FASTING 167 MG/DL (70-100); POTASSIUM SERUM 4.3 MEQ/L (3.5-5.1); SODIUM LEVEL 142 MEQ/L (136-145)
== END | disposition home or self-care (01) ==
LOC: M IRPRO 08:31
DX: I70.213 Atherosclerosis of native arteries of extremities with intermittent claudication, bilateral legs (principal)
CPT/HCPCS: 36200

== ENCOUNTER → 2018-11-02 | Outpatient (REF) | payer OTHER | LOC: M LAB REF 13:48 | DX: L57.0 Actinic keratosis (principal) ==

== ENCOUNTER 2018-11-27 07:46 | Inpatient (IN) | payer OTHER ==
[~2018-11-27] VITALS: Ht 170.2 cm; Wt 101.0 kg
[~2018-11-27 07:46] MED LIST changes: +AMLO10TA5 PO; +ATOR40TA75 PO; +CLOP75TA2 PO; +GLIM1TAB PO; -HEPARIN 1,000 UNITS/ML 10ML VIAL (FOR RADIOLOGY& DIALYSIS ONLY) As Ordered; +HYDR12CA PO; +INVO100T PO; -ISOVUE-300 61% 50ML VIAL (Q9967) As Ordered; -LIDOCAINE 2% MDV 20 ML VIAL As Ordered; +LISI-538 PO; +LYRI200C PO; +METF10004 PO; -MIDAZOLAM INJ 2 MG/2 ML VIAL (J2250) As Ordered; +PENT400T47 PO; +TRAM50TA2 PO; +VITA50005 PO; -fentaNYL 100 MCG/2 ML INJECTION (J3010) As Ordered
[2018-11-27] MEDS: CLOPIDOGREL 75 MG TAB PO SCH (09:00)
[2018-11-27] MEDS: LR 1,000 ML IV SCH ×2 (10:20→18:00)
[2018-11-27] MEDS ORDERED: PROPOFOL 200 MG/20 ML VIAL As Ordered ONE (10:37)
[2018-11-27] MEDS ORDERED: dexameTHASONE 4 MG/ML 1ML VIAL (J1100) As Ordered ONE (10:37)
[2018-11-27] MEDS ORDERED: ROCURONIUM BROMIDE 50 MG/5 ML VIAL As Ordered ONE (10:37)
[2018-11-27] MEDS ORDERED: LIDOCAINE 2% INJ 100 MG/5 ML SDV (FOR ANES.) As Ordered ONE (10:37)
[2018-11-27] MEDS ORDERED: fentaNYL 250 MCG/5 ML INJECTION (J3010) As Ordered ONE (10:38)
[2018-11-27] MEDS ORDERED: MIDAZOLAM INJ 2 MG/2 ML VIAL (J2250) As Ordered ONE (10:38)
--- NOTE | 2018-11-27 10:54 | HPEPDOC ---
General Date of Admission Nov 27, 2018 at 07:46 Attending Physician: Jose De Jesus Lopez MD Chief Complaint The patient is a 58-year-old male admitted with a reason for visit of Athe rosclerosis Of [place] Arteries Of Extremities. History of Present Illness Patient is a 58-year-old male with a history of claudication both lower extremities with the right lower extremity being more significant than the left lower extremity. Patient has previously undergone a left iliofemoral bypass graft. Patient has also had bilateral common iliac artery angioplasty and stenting. 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 Options were discussed with the patient and the patient wishes to proceed with a left to right femoral femoral bypass. Patient denies rest pain, TIAs, amaurosis fugax, paralysis or paresis of the extremity, nausea, fevers, chills, vomiting, chest pain, or shortness of breath. Home Medications Scheduled Amlodipine Besylate (Amlodipine Besylate) 10 Mg Tab, PO DAILY, (Reported) Atorvastatin Calcium (Atorvastatin Calcium) 40 Mg Tab, PO DAILY, (Reported) Canagliflozin (Invokana) 100 Mg Tab, PO DAILY, (Reported) Clopidogrel Bisulfate (Clopidogrel) 75 Mg Tab, PO DAILY, (Reported) Ergocalciferol (Vitamin D) 50,000 Unit Cap, PO 1XWK, (Reported) Glimepiride (Glimepiride) 1 Mg Tab, PO DAILY, (Reported) Hydrochlorothiazide (Hydrochlorothiazide) 12.5 Mg Cap, PO DAILY, (Reported) Lisinopril (Lisinopril) 20 Mg Tab, PO DAILY, (Reported) Metformin Hydrochloride (Metformin HCl) 1,000 Mg Tab, PO BID, (Reported) Pentoxifylline (Pentoxifylline ER) 400 Mg Tabcr, PO BID, (Reported) Pregabalin (Lyrica) 200 Mg Cap, PO TID, (Reported) Tramadol HCl (Tramadol HCl) 50 Mg Tab, PO BID, (Reported) Allergies Coded Allergies: Ampicillin (Verified Allergy, Intermediate, RASH, 11/27/18) Past Medical History Medical History 1. Hypertension 2. Diabetes 3. Hypercholesterolemia 4. Oral Cancer - BOTTOM LIP 5. Peripheral Vascular Disease (PVD) Surgical History Carpal Tunnel Release - RIGHT 01/2012 Family History Significant Family History: Diabetes, Heart disease, Hypertension, Renal disease Social History * Smoker: current smoker, greater than 1 pack/day (1 / PPD FOR 42 YEARS) Alcohol: Denies Drugs: denies Review of Systems Constitutional: Denies: Chills, Fever, Night Sweats Eyes: Denies: Pain, Vision change ENT: Denies: Head Aches, Ear Pain, Dysphagia Skin: Denies: Rash, Lesions, Breakdown Pulmonary: Denies: Dyspnea, Cough Cardiovascular: Denies: Chest Pain, Palpitations, Orthopnea, Paroxysmal Noc. Dyspnea, Lt Headedness Gastrointestinal: Denies: Nausea, Vomiting, Abdominal Pain, Diarrhea Genitourinary: Denies: Dysuria, Frequency, Incontinence, Retention Hematologic: Denies: Bruising, Bleeding Excessively Musculoskeletal: Reports: Leg Pain; Denies: Neck Pain, Back Pain, Joint Pain, Muscle Pain, Spasms Neurological: Denies: Weakness, Numbness, Change in speech, Confusion Psych: Reports: Mood Normal; Denies: Depression, Memory Issues Physical Examination General Exam: Positive: Alert, Cooperative, No Acute Distress Eye Exam: Positive: PERRLA, Conjunctiva & lids normal, EOMI, Sclera icteric ENT Exam: Positive: Atraumatic Neck Exam: Positive: Supple, +2 carotid pulse wo bruit; Negative: JVD Chest Exam: Positive: Clear to auscultation, Normal air movement; Negative: Rales, Rhonchi, Wheezing, Diminished, Other Heart Exam: Positive: Rate Normal, Regular Rhythm, Normal S1, Normal S2; Negative: Irregular Rhythm, Gallops, Murmurs, Rubs, Other Abdomen Exam: Positive: Normal bowel sounds, Soft; Negative: Tenderness, Mass Extremity Exam: Negative: Clubbing, Cyanosis, Edema, Normal pulses (DPs and PTs not palpable but audible with Doppler), Tenderness, Swelling, Other Neuro Exam: Positive: Normal Speech, Strength at 5/5 X4 ext, Cranial Nerves 3- 12 NL Psych Exam: Positive: Mental status NL, Oriented x 3 Vital Signs Temp 97.1, SC 65, RR 20, BP 134/82, PSO2 96% RA Assessment/Plan 1. Occlusive peripheral vascular disease with occlusion of Rt EIA and REEL HOOKER not amenable to endovascular intervention. 2. Hypertension 3. Diabetes 4. Hypercholesterolemia Plan / VTE VTE Prophylaxis Ordered?: Yes Plan Plan Patient is a 58-year-old male with complete occlusion of his right external iliac artery and right common femoral artery. Patient will require a left to right femoral femoral bypass grafting. The entire procedure was described and explained in detail to the patient. Risks, benefits and alternative treatment options were discussed with the patient. Patient's questions were answered. Pat ient voices understanding of these risks, benefits and alternative treatment options. The consent form was signed. NPO midnight prior to the day of the surgery. Preop lab ordered Shave skin BLQ, BLE thighs Proceed with FemFem bypass today. YESSENIA MCKEON PA-C Nov 27, 2018 10:54
[2018-11-27] MEDS ORDERED: HEPARIN SOD (PORCINE) 5000 UNITS/ML VIAL As Ordered ONE ×5 (11:16→16:16)
[2018-11-27] MEDS ORDERED: THROMBIN SOLN 5,000 UNITS VIAL As Ordered ONE (11:16)
[2018-11-27] MEDS ORDERED: NICOTINE 21MG/24HR 1 EA TRANSDERMAL TD ONE (11:30)
[2018-11-27] MEDS ORDERED: VASOPRESSIN INJ 20 UNITS/ML VIAL As Ordered ONE (12:41)
[2018-11-27] MEDS ORDERED: ePHEDrine SULFATE 25 MG/5 ML(5MG/ML) SYRINGE As Ordered ONE (12:53)
[2018-11-27] MEDS ORDERED: PHENYLephrine HCL 500 MCG/5 ML (100MCG/ML) SYRINGE (J2370) As Ordered ONE ×4 (12:59→17:03)
[2018-11-27] MEDS ORDERED: PHENYLEPHRINE INJ 10MG/ML VIAL (J2370) As Ordered ONE ×3 (13:05→14:45)
[2018-11-27] MEDS ORDERED: ISOVUE-300 61% 50ML VIAL (Q9967) As Ordered ONE (13:31)
[2018-11-27] MEDS ORDERED: ONDANSETRON 4MG/2ML VIAL (J2405) As Ordered ONE (13:45)
[2018-11-27] MEDS ORDERED: GLYCOPYRROLATE INJ 0.2 MG/ML 2 ML VIAL As Ordered ONE (13:45)
[2018-11-27] MEDS ORDERED: NEOSTIGMINE 10 MG/10 ML VIAL (J2710) As Ordered ONE ×2 (13:45→13:47)
[2018-11-27] MEDS ORDERED: fentaNYL 100 MCG/2 ML INJECTION (J3010) As Ordered ONE ×6 (16:04→17:45)
[2018-11-27] MEDS ORDERED: BISACODYL 10 MG SUPP PR PRN (17:45)
[2018-11-27] MEDS ORDERED: MORPHINE 4 MG/ML 1ML VIAL/SYRINGE (J2270) As Ordered ONE ×2 (17:57→18:06)
[2018-11-27] MEDS: MORPHINE 10 MG/ML 1ML VIAL (J2270) IV PRN ×5 (17:59→18:27)
[2018-11-27] MEDS ORDERED: METOCLOPRAMIDE INJ 10MG/2ML VIAL (J2765) IV PRN (18:15)
[2018-11-27] MEDS ORDERED: fentaNYL 100 MCG/2 ML INJECTION (J3010) IV PRN (18:15)
[2018-11-27] MEDS ORDERED: ONDANSETRON 4MG/2ML VIAL (J2405) IV PRN (18:15)
[2018-11-27] MEDS ORDERED: LR 1,000 ML IV SCH (18:15)
[2018-11-27] MEDS ORDERED: HYDROMORPHONE HCL 0.5 MG/ 0.5 ML SYRINGE (J1170 PER 1) As Ordered ONE ×3 (18:31→19:12)
[2018-11-27 18:32] LABS: HEMATOCRIT 35.9 % (42.0-52.0); HEMOGLOBIN 11.5 g/dl (13.5-17.5)
[2018-11-27] MEDS: HYDROmorphone HCL 2 MG/ML 1ML VIAL (J1170) IV SCH ×10 (18:37→19:42)
[2018-11-27] MEDS ORDERED: HumaLOG INSULIN (NovoLOG) PER UNIT As Ordered ONE (18:58)
[2018-11-27] MEDS ORDERED: HumaLOG INSULIN (NovoLOG) PER UNIT SQ ONE (19:15)
[2018-11-27] MEDS ORDERED: HYDROmorphone HCL 2 MG/ML 1ML VIAL (J1170) IV PRN (19:30)
[2018-11-27] MEDS: PERCOCET 5MG/325MG TAB PO PRN ×2 (19:39→20:18)
[2018-11-27] MEDS ORDERED: PERCOCET 5MG/325MG TAB As Ordered ONE ×2 (19:39→20:12)
[2018-11-27 20:30] VITALS: BP 114/80
[2018-11-27 21:00] VITALS: BP 130/100
[2018-11-27] MEDS: SENOKOT S TAB PO SCH (21:17)
[2018-11-27] MEDS: PREGABALIN 100 MG CAP (LYRICA) PO SCH (21:17)
[2018-11-27] MEDS: DOCUSATE SODIUM 100 MG CAP PO SCH (21:17)
[2018-11-27] MEDS: FAMOTIDINE 20 MG TAB PO SCH (21:18)
[2018-11-27] MEDS: LISINOPRIL 20 MG TAB PO SCH (21:18)
[2018-11-27 22:00] VITALS: BP 189/84; O2SAT 98
[2018-11-27 22:25] VITALS: BP 160/88
[2018-11-27 23:00] VITALS: BP 175/85; O2SAT 97
[2018-11-28] VITALS (25 sets, daily range): BP systolic 113–169; BP diastolic 51–76; O2SAT 90–98
[2018-11-28] MEDS: MORPHINE 4 MG/ML 1ML VIAL/SYRINGE (J2270) IV PRN ×5 (00:43→20:45)
[2018-11-28] MEDS: LR 1,000 ML IV SCH (04:00)
[2018-11-28 05:24] LABS: BASO % 0.1 % (0.0-1.0); EOS % 0.2 % (0.0-3.0); HEMATOCRIT 34.2 % (42.0-52.0); HEMOGLOBIN 11.2 g/dl (13.5-17.5); LYMPH # 1.6 10^3/uL (1.5-4.5); LYMPH % 13.3 % (24.0-44.0); MEAN CORPUSCULAR HEMOGLOBIN 28.1 pg (27.0-33.0); MEAN CORPUSCULAR HGB CONC 32.7 g/dl (32.0-36.5); MEAN CORPUSCULAR VOLUME 85.9 fl (80.0-96.0); MONO # 1.1 10^3/uL (0.0-0.8); MONO % 9.4 % (0.0-5.0); NEUTROPHILS # 9.1 10^3/uL (1.8-7.7); NEUTROPHILS % 76.6 % (36.0-66.0); PLATELET COUNT, AUTOMATED 177 10^3/uL (150-450); RED BLOOD COUNT 3.98 10^6/uL (4.30-6.10); WHITE BLOOD COUNT 11.9 10^3/uL (4.0-10.0)
[2018-11-28 05:44] LABS: BLOOD UREA NITROGEN 19 MG/DL (7-18); CALCIUM LEVEL 8.3 MG/DL (8.5-10.1); CARBON DIOXIDE LEVEL 23 MEQ/L (21-32); CHLORIDE LEVEL 104 MEQ/L (98-107); CREATININE FOR GFR 1.08 MG/DL (0.70-1.30); GLOMERULAR FILTRATION RATE > 60.0 (>56); GLUCOSE, FASTING 201 MG/DL (70-100); POTASSIUM SERUM 4.9 MEQ/L (3.5-5.1); SODIUM LEVEL 136 MEQ/L (136-145)
[2018-11-28] MEDS: GLIMEPIRIDE 1 MG TABLET PO SCH ×2 (07:30→17:30)
[2018-11-28] MEDS: metFORMIN (GLUCOPHAGE) 1000 MG TABLET PO SCH ×3 (08:00→18:21)
[2018-11-28] MEDS: DOCUSATE SODIUM 100 MG CAP PO SCH ×2 (09:28→20:44)
[2018-11-28] MEDS: NORCO, ANEXSIA 5/325MG TABLET (HYDROcodone/ACETAMINOPHEN) PO PRN ×2 (09:28→15:54)
[2018-11-28] MEDS: amLODIPine 10 MG TAB PO SCH (09:29)
[2018-11-28] MEDS: FAMOTIDINE 20 MG TAB PO SCH ×2 (09:29→20:44)
[2018-11-28] MEDS: SENOKOT S TAB PO SCH ×2 (09:29→20:44)
[2018-11-28] MEDS: PREGABALIN 100 MG CAP (LYRICA) PO SCH ×3 (09:29→20:44)
[2018-11-28] MEDS: LISINOPRIL 20 MG TAB PO SCH ×2 (09:30→20:47)
[2018-11-28] MEDS: hydroCHLOROthiazide 12.5 MG CAPSULE PO SCH (09:30)
[2018-11-28] MEDS: CLOPIDOGREL 75 MG TAB PO SCH (09:30)
[2018-11-28] MEDS: ATORVASTATIN 20 MG TAB PO SCH (20:44)
[2018-11-29] VITALS (19 sets, daily range): BP systolic 123–144; BP diastolic 65–83; O2SAT 92–99
[2018-11-29] MEDS: NORCO, ANEXSIA 5/325MG TABLET (HYDROcodone/ACETAMINOPHEN) PO PRN ×4 (00:10→18:55)
[2018-11-29] MEDS ORDERED: SLF 3 ML SYR IV PRN (02:45)
[2018-11-29] MEDS: MORPHINE 4 MG/ML 1ML VIAL/SYRINGE (J2270) IV PRN ×3 (04:17→21:29)
[2018-11-29] MEDS: SLF 3 ML SYR IV SCH ×3 (05:01→21:30)
[2018-11-29] MEDS: GLIMEPIRIDE 1 MG TABLET PO SCH ×2 (08:21→17:24)
[2018-11-29] MEDS: PREGABALIN 100 MG CAP (LYRICA) PO SCH ×3 (08:21→21:29)
[2018-11-29] MEDS: FAMOTIDINE 20 MG TAB PO SCH ×2 (08:21→21:30)
[2018-11-29] MEDS: hydroCHLOROthiazide 12.5 MG CAPSULE PO SCH (08:22)
[2018-11-29] MEDS: LISINOPRIL 20 MG TAB PO SCH ×2 (08:22→21:30)
[2018-11-29] MEDS: amLODIPine 10 MG TAB PO SCH (08:22)
[2018-11-29] MEDS: DOCUSATE SODIUM 100 MG CAP PO SCH ×2 (08:23→21:30)
[2018-11-29] MEDS: CLOPIDOGREL 75 MG TAB PO SCH (08:23)
[2018-11-29] MEDS: SENOKOT S TAB PO SCH ×2 (08:24→21:00)
[2018-11-29] MEDS: metFORMIN (GLUCOPHAGE) 1000 MG TABLET PO SCH ×2 (08:24→17:24)
[2018-11-29] MEDS: LR 1,000 ML IV SCH ×2 (10:00)
[2018-11-29] MEDS: ATORVASTATIN 20 MG TAB PO SCH (21:30)
[2018-11-30] VITALS (11 sets, daily range): BP systolic 106–136; BP diastolic 63–76; O2SAT 93–95
[2018-11-30] MEDS: NORCO, ANEXSIA 5/325MG TABLET (HYDROcodone/ACETAMINOPHEN) PO PRN ×3 (00:26→12:30)
[2018-11-30] MEDS: MORPHINE 4 MG/ML 1ML VIAL/SYRINGE (J2270) IV PRN ×5 (03:13→23:21)
[2018-11-30] MEDS: SLF 3 ML SYR IV SCH ×3 (06:00→23:05)
[2018-11-30] MEDS: LR 1,000 ML IV SCH (08:17)
[2018-11-30] MEDS: MOM 30ML SUSPENSION UDC PO PRN (08:29)
[2018-11-30] MEDS: FAMOTIDINE 20 MG TAB PO SCH ×2 (08:29→23:28)
[2018-11-30] MEDS: GLIMEPIRIDE 1 MG TABLET PO SCH (08:29)
[2018-11-30] MEDS: CLOPIDOGREL 75 MG TAB PO SCH (08:29)
[2018-11-30] MEDS: amLODIPine 10 MG TAB PO SCH (08:29)
[2018-11-30] MEDS: SENOKOT S TAB PO SCH ×2 (08:30→23:27)
[2018-11-30] MEDS: PREGABALIN 100 MG CAP (LYRICA) PO SCH ×3 (08:30→23:28)
[2018-11-30] MEDS: DOCUSATE SODIUM 100 MG CAP PO SCH ×2 (08:31→23:28)
[2018-11-30] MEDS: metFORMIN (GLUCOPHAGE) 1000 MG TABLET PO SCH (08:31)
[2018-11-30] MEDS: hydroCHLOROthiazide 12.5 MG CAPSULE PO SCH (08:31)
[2018-11-30] MEDS: LISINOPRIL 20 MG TAB PO SCH ×2 (08:31→21:00)
--- NOTE | 2018-11-30 13:41 | IPNPDOC ---
Subjective Date Seen The patient was seen on 11/30/18. Subjective Chief Complaint/HPI C/o worsening Rt foot coldness, pain and paresthesia. The foot color turned to mixed purple and white and temperature turned cold today, no distal pulses as per the RN. Objective Physical Examination General Exam: Positive: Alert, Cooperative, Severe Distress Eye Exam: Positive: PERRLA, Conjunctiva & lids normal, EOMI, Sclera icteric ENT Exam: Positive: Atraumatic Neck Exam: Positive: Supple, +2 carotid pulse wo bruit; Negative: JVD Chest Exam: Positive: Clear to auscultation, Normal air movement; Negative: Rales, Rhonchi, Wheezing, Diminished, Other Heart Exam: Positive: Rate Normal, Regular Rhythm, Normal S1, Normal S2; Negative: Irregular Rhythm, Gallops, Murmurs, Rubs, Other Abdomen Exam: Positive: Normal bowel sounds, Soft; Negative: Tenderness, Mass Extremity Exam: Positive: Cyanosis (Rt foot with mixed purple and white color and purple toes), Tenderness (Rt foot below ankle tender and paresthetic to touch, loss of sensation and motor strength in all toes); Negative: Clubbing, Edema, Normal pulses (Rt DPs and PTs not audible with Doppler, Lt DP triphasic, PT biphasic), Swelling, Other Neuro Exam: Positive: Normal Speech, Strength at 5/5 X4 ext, Cranial Nerves 3- 12 NL Psych Exam: Positive: Mental status NL, Oriented x 3 Assessment /Plan Assessment POD #3 S/p endarterectomy of Rt EIA, MANAGER AGENCY and proximal SFA and stenting of FER, EIA and MANAGER AGENCY. Pt has pulseless acute RLE ischemia. Plan/VTE VTE Prophylaxis Ordered?: Yes Plan Continue current management. CTA pelvis and RLE Heparin drip per protocol Case discussed with Dr Lopez. VS, I&O, 24H, Fishbone Vital Signs/I&O Vital Signs Date Time Temp Pulse Resp B/P (MAP) Pulse Ox O2 Delivery O2 Flow Rate FiO2 11/30/18 12:30 20 Room Air 11/30/18 11:00 95 11/30/18 10:16 92.0 11/30/18 08:31 132/70 11/30/18 08:29 84 11/30/18 04:00 98.4 I&O- Last 24 Hours up to 6 AM 11/30/18 06:00 Intake Total 2040 ml Output Total 2525 ml Balance -485 ml Laboratory Data 24H LABS Laboratory Tests 2 11/29/18 17:10: Bedside Glucose (Misc Panel) 187H 11/29/18 20:19: Bedside Glucose (Misc Panel) 200H 11/30/18 08:35: Bedside Glucose (Misc Panel) 232H YESSENIA MCKEON PA-C Nov 30, 2018 13:41
[2018-11-30] MEDS ORDERED: HEPARIN DRIP 25,000 UNITS in APPROPRIATE DILUENT 1 EA IV SCH (14:22)
[2018-11-30] MEDS ORDERED: HEPARIN SOD (PORCINE) 5000 UNITS/ML VIAL IV PRN (14:30)
[2018-11-30] MEDS ORDERED: HEPARIN SOD (PORCINE) 5000 UNITS/ML VIAL IV ONE (14:30)
[2018-11-30] MEDS ORDERED: ISOVUE-370 76% 100ML VIAL (Q9967) As Ordered ONE (14:41)
[2018-11-30 15:48] LABS: HEMATOCRIT 29.9 % (42.0-52.0); HEMOGLOBIN 9.6 g/dl (13.5-17.5); MEAN CORPUSCULAR HEMOGLOBIN 28.4 pg (27.0-33.0); MEAN CORPUSCULAR HGB CONC 32.1 g/dl (32.0-36.5); MEAN CORPUSCULAR VOLUME 88.5 fl (80.0-96.0); PLATELET COUNT, AUTOMATED 201 10^3/uL (150-450); RED BLOOD COUNT 3.38 10^6/uL (4.30-6.10); WHITE BLOOD COUNT 15.1 10^3/uL (4.0-10.0)
[2018-11-30] MEDS: HEPARIN DRIP 25,000 UNITS in APPROPRIATE DILUENT 1 EA IV SCH ×2 (15:58→23:13)
[2018-11-30] MEDS ORDERED: GLUCOSE 4 GM CHEW TABLET PO PRN (16:00)
[2018-11-30] MEDS ORDERED: DEXTROSE 50% 50 ML SYRINGE IV PRN (16:00)
[2018-11-30] MEDS ORDERED: GLUCAGON FOR INJ 1 MG VIAL (J1610) SC PRN (16:00)
--- NOTE | 2018-11-30 16:05 | REP ---
Clinical: Acute right lower extremity ischemia. Technique: Axial contrast enhanced images of the right lower extremity using angiographic technique with 100 ml Isovue 370 intravenous contrast material. Comparison: 08/13/2018. Findings: A graft is identified in the right common iliac artery which is completely unopacified and consistent with complete occlusion. There is severe atherosclerotic disease extending from the visualized distal aorta through the entire right lower extremity. There is a complex collection in the right groin measuring greater than 7.7 x 6.0 x 9.5 cm containing gas and high density fluid consistent with hemorrhage and most compatible with hematoma and/or abscess (images 68-90). There is no evidence for arterial enhancement through the remainder of the right common femoral vein and superficial femoral vein through popliteal vein and no obvious significant flow below the knee is appreciated. Impression: 1. Complex hematoma/abscess with gas in the right groin measuring greater than 7.7 x 6.0 x 9.5 cm. 2. Complete occlusion of the arterial vasculature to the right lower extremity from the level of the right common iliac artery. Electronically Signed by Rambo Tobin MD 11/30/2018 03:57 P
[2018-11-30] MEDS ORDERED: CONRAY-60 60% 50ML VIAL (Q9961) As Ordered ONE (17:11)
[2018-11-30] MEDS ORDERED: LIDOCAINE 1% SDV INJ 30 ML VIAL As Ordered ONE (17:11)
[2018-11-30] MEDS ORDERED: THROMBIN SOLN 20,000 UNITS KIT As Ordered ONE (17:11)
[2018-11-30] MEDS ORDERED: BUPIVACAINE HCL 0.5% 30 ML VIAL As Ordered ONE (17:12)
[2018-11-30] MEDS ORDERED: HEPARIN SOD (PORCINE) 5000 UNITS/ML VIAL As Ordered ONE ×3 (17:12→20:05)
[2018-11-30] MEDS: HumaLOG INSULIN (NovoLOG) PER UNIT SC SCH ×2 (17:30→21:00)
[2018-11-30] MEDS ORDERED: MIDAZOLAM INJ 2 MG/2 ML VIAL (J2250) As Ordered ONE (17:48)
[2018-11-30] MEDS ORDERED: LIDOCAINE 2% INJ 100 MG/5 ML SDV (FOR ANES.) As Ordered ONE (17:48)
[2018-11-30] MEDS ORDERED: PROPOFOL 200 MG/20 ML VIAL As Ordered ONE (17:48)
[2018-11-30] MEDS ORDERED: ROCURONIUM BROMIDE 50 MG/5 ML VIAL As Ordered ONE (17:48)
[2018-11-30] MEDS ORDERED: fentaNYL 100 MCG/2 ML INJECTION (J3010) As Ordered ONE ×4 (17:48→21:18)
[2018-11-30] MEDS ORDERED: SUCCINYLCHOLINE 100 MG/5 ML SYRINGE (J0330) As Ordered ONE (17:48)
[2018-11-30] MEDS ORDERED: PHENYLephrine HCL 500 MCG/5 ML (100MCG/ML) SYRINGE (J2370) As Ordered ONE (18:22)
[2018-11-30] MEDS ORDERED: ePHEDrine SULFATE 25 MG/5 ML(5MG/ML) SYRINGE As Ordered ONE (18:40)
[2018-11-30] MEDS ORDERED: PHENYLEPHRINE INJ 10MG/ML VIAL (J2370) As Ordered ONE (18:43)
[2018-11-30] MEDS ORDERED: ALTEPLASE 2 MG/2 ML VIAL (J2997 PER 1MG) XX ONE (20:45)
[2018-11-30] MEDS ORDERED: NEOSTIGMINE 10 MG/10 ML VIAL (J2710) As Ordered ONE (21:11)
[2018-11-30] MEDS ORDERED: GLYCOPYRROLATE INJ 0.2 MG/ML 2 ML VIAL As Ordered ONE (21:11)
[2018-11-30] MEDS ORDERED: HYDROMORPHONE HCL 0.5 MG/ 0.5 ML SYRINGE (J1170 PER 1) IV PRN ×2 (22:00→22:30)
[2018-11-30] MEDS ORDERED: fentaNYL 100 MCG/2 ML INJECTION (J3010) IV PRN (22:00)
[2018-11-30] MEDS ORDERED: NORCO, ANEXSIA 5/325MG TABLET (HYDROcodone/ACETAMINOPHEN) PO PRN (22:00)
[2018-11-30] MEDS ORDERED: ONDANSETRON 4MG/2ML VIAL (J2405) IV PRN (22:00)
[2018-11-30] MEDS ORDERED: LR 1,000 ML IV SCH (22:00)
[2018-11-30] MEDS ORDERED: MORPHINE 10 MG/ML 1ML VIAL (J2270) As Ordered ONE (22:04)
[2018-11-30] MEDS ORDERED: HYDROMORPHONE HCL 0.5 MG/ 0.5 ML SYRINGE (J1170 PER 1) As Ordered ONE (22:08)
[2018-11-30] MEDS ORDERED: MORPHINE 10 MG/ML 1ML VIAL (J2270) IV PRN (22:30)
[2018-11-30] MEDS: ATORVASTATIN 20 MG TAB PO SCH (23:27)
[2018-12-01] VITALS (9 sets, daily range): BP systolic 98–136; BP diastolic 52–71; O2SAT 96
[2018-12-01] MEDS: NORCO, ANEXSIA 5/325MG TABLET (HYDROcodone/ACETAMINOPHEN) PO PRN ×5 (01:23→22:50)
[2018-12-01] MEDS: MORPHINE 4 MG/ML 1ML VIAL/SYRINGE (J2270) IV PRN ×8 (02:11→23:22)
[2018-12-01] MEDS ORDERED: MIDAZOLAM INJ 2 MG/2 ML VIAL (J2250) As Ordered ONE (03:36)
[2018-12-01] MEDS ORDERED: fentaNYL 100 MCG/2 ML INJECTION (J3010) As Ordered ONE (03:36)
[2018-12-01] MEDS ORDERED: SUCCINYLCHOLINE 100 MG/5 ML SYRINGE (J0330) As Ordered ONE (03:36)
[2018-12-01] MEDS ORDERED: ROCURONIUM BROMIDE 50 MG/5 ML VIAL As Ordered ONE (03:36)
[2018-12-01] MEDS ORDERED: ETOMIDATE INJ 20MG/10ML VIAL As Ordered ONE (03:36)
[2018-12-01] MEDS ORDERED: LIDOCAINE 2% INJ 100 MG/5 ML SDV (FOR ANES.) As Ordered ONE (03:36)
[2018-12-01] MEDS ORDERED: PROPOFOL 200 MG/20 ML VIAL As Ordered ONE (03:36)
[2018-12-01] MEDS ORDERED: THROMBIN SOLN 20,000 UNITS KIT As Ordered ONE (03:40)
[2018-12-01] MEDS ORDERED: PHENYLEPHRINE INJ 10MG/ML VIAL (J2370) As Ordered ONE (03:42)
[2018-12-01] MEDS ORDERED: ePHEDrine SULFATE 25 MG/5 ML(5MG/ML) SYRINGE As Ordered ONE (03:42)
[2018-12-01] MEDS ORDERED: PHENYLephrine HCL 500 MCG/5 ML (100MCG/ML) SYRINGE (J2370) As Ordered ONE (03:42)
[2018-12-01] MEDS ORDERED: SUGAMMADEX SODIUM 500 MG/5 ML VIAL (BRIDION) As Ordered ONE (03:53)
[2018-12-01] MEDS ORDERED: dexameTHASONE 4 MG/ML 1ML VIAL (J1100) As Ordered ONE (03:53)
[2018-12-01] MEDS ORDERED: ONDANSETRON 4MG/2ML VIAL (J2405) As Ordered ONE (03:53)
[2018-12-01] MEDS ORDERED: MORPHINE 4 MG/ML 1ML VIAL/SYRINGE (J2270) As Ordered ONE ×2 (04:52→05:33)
[2018-12-01] MEDS: MORPHINE 10 MG/ML 1ML VIAL (J2270) IV PRN ×3 (04:55→05:36)
[2018-12-01] MEDS ORDERED: fentaNYL 100 MCG/2 ML INJECTION (J3010) IV PRN (05:30)
[2018-12-01] MEDS ORDERED: ONDANSETRON 4MG/2ML VIAL (J2405) IV PRN (05:30)
[2018-12-01] MEDS ORDERED: LR 1,000 ML IV SCH (05:30)
[2018-12-01] MEDS: SLF 3 ML SYR IV SCH ×3 (05:53→21:04)
--- NOTE | 2018-12-01 07:25 | REP ---
Clinical: No preliminary surgical count. Technique: Single portable intraoperative view of the right hip. Findings: A stent graft is identified in the level of the right external iliac/common femoral artery. A drainage catheter is identified in the region of the right groin with overlying postsurgical changes. Surgical skin janelle noted. No further foreign body identified. Impression: No abnormal foreign body objects identified. Electronically Signed by Rambo Tobin MD 12/01/2018 07:17 A
[2018-12-01 07:48] LABS: BASO % 0.2 % (0.0-1.0); EOS % 0.1 % (0.0-3.0); HEMATOCRIT 29.1 % (42.0-52.0); HEMOGLOBIN 9.5 g/dl (13.5-17.5); LYMPH # 1.1 10^3/uL (1.5-4.5); LYMPH % 7.4 % (24.0-44.0); MEAN CORPUSCULAR HEMOGLOBIN 28.6 pg (27.0-33.0); MEAN CORPUSCULAR HGB CONC 32.6 g/dl (32.0-36.5); MEAN CORPUSCULAR VOLUME 87.7 fl (80.0-96.0); MONO # 1.3 10^3/uL (0.0-0.8); MONO % 8.8 % (0.0-5.0); NEUTROPHILS # 12.4 10^3/uL (1.8-7.7); NEUTROPHILS % 82.9 % (36.0-66.0); PLATELET COUNT, AUTOMATED 185 10^3/uL (150-450); RED BLOOD COUNT 3.32 10^6/uL (4.30-6.10)
[2018-12-01 08:10] LABS: BLOOD UREA NITROGEN 23 MG/DL (7-18); CALCIUM LEVEL 7.3 MG/DL (8.5-10.1); CARBON DIOXIDE LEVEL 22 MEQ/L (21-32); CHLORIDE LEVEL 106 MEQ/L (98-107); CREATININE FOR GFR 1.16 MG/DL (0.70-1.30); GLOMERULAR FILTRATION RATE > 60.0 (>56); GLUCOSE, FASTING 212 MG/DL (70-100); POTASSIUM SERUM 4.7 MEQ/L (3.5-5.1); SODIUM LEVEL 137 MEQ/L (136-145)
[2018-12-01] MEDS: HumaLOG INSULIN (NovoLOG) PER UNIT SC SCH ×4 (08:56→21:00)
[2018-12-01] MEDS: FAMOTIDINE 20 MG TAB PO SCH ×2 (08:56→21:04)
[2018-12-01] MEDS: amLODIPine 10 MG TAB PO SCH (08:57)
[2018-12-01] MEDS: hydroCHLOROthiazide 12.5 MG CAPSULE PO SCH (08:57)
[2018-12-01] MEDS: CLOPIDOGREL 75 MG TAB PO SCH (08:57)
[2018-12-01] MEDS: SENOKOT S TAB PO SCH ×2 (08:57→21:03)
[2018-12-01] MEDS: DOCUSATE SODIUM 100 MG CAP PO SCH ×2 (08:57→21:04)
[2018-12-01] MEDS: PENTOXIFYLLINE 400 MG TAB PO SCH ×2 (08:57→17:04)
[2018-12-01] MEDS: LISINOPRIL 20 MG TAB PO SCH ×2 (08:58→21:03)
[2018-12-01] MEDS: PREGABALIN 100 MG CAP (LYRICA) PO SCH ×3 (08:58→21:04)
[2018-12-01] MEDS: ATORVASTATIN 20 MG TAB PO SCH (21:03)
[2018-12-02] VITALS (17 sets, daily range): BP systolic 98–128; BP diastolic 54–72; O2SAT 90–95
[2018-12-02] MEDS: MORPHINE 4 MG/ML 1ML VIAL/SYRINGE (J2270) IV PRN ×6 (01:34→22:37)
[2018-12-02] MEDS: NORCO, ANEXSIA 5/325MG TABLET (HYDROcodone/ACETAMINOPHEN) PO PRN ×3 (05:17→20:50)
[2018-12-02] MEDS: SLF 3 ML SYR IV SCH ×3 (05:18→20:51)
[2018-12-02 05:28] LABS: BASO % 0.2 % (0.0-1.0); EOS # 0.1 10^3/uL (0.0-0.50); EOS % 0.6 % (0.0-3.0); HEMATOCRIT 27.2 % (42.0-52.0); HEMOGLOBIN 8.6 g/dl (13.5-17.5); LYMPH # 2.5 10^3/uL (1.5-4.5); LYMPH % 17.1 % (24.0-44.0); MEAN CORPUSCULAR HEMOGLOBIN 28.1 pg (27.0-33.0); MEAN CORPUSCULAR HGB CONC 31.6 g/dl (32.0-36.5); MEAN CORPUSCULAR VOLUME 88.9 fl (80.0-96.0); MONO # 1.4 10^3/uL (0.0-0.8); NEUTROPHILS # 10.4 10^3/uL (1.8-7.7); NEUTROPHILS % 71.6 % (36.0-66.0); PLATELET COUNT, AUTOMATED 223 10^3/uL (150-450); RED BLOOD COUNT 3.06 10^6/uL (4.30-6.10); WHITE BLOOD COUNT 14.5 10^3/uL (4.0-10.0)
[2018-12-02 05:43] LABS: BLOOD UREA NITROGEN 22 MG/DL (7-18); CARBON DIOXIDE LEVEL 25 MEQ/L (21-32); CHLORIDE LEVEL 100 MEQ/L (98-107); CREATININE FOR GFR 1.24 MG/DL (0.70-1.30); GLOMERULAR FILTRATION RATE > 60.0 (>56); GLUCOSE, FASTING 207 MG/DL (70-100); SODIUM LEVEL 135 MEQ/L (136-145)
[2018-12-02] MEDS: HumaLOG INSULIN (NovoLOG) PER UNIT SC SCH ×4 (09:10→20:51)
[2018-12-02] MEDS: DOCUSATE SODIUM 100 MG CAP PO SCH ×2 (09:15→20:48)
[2018-12-02] MEDS: PENTOXIFYLLINE 400 MG TAB PO SCH ×2 (09:15→18:19)
[2018-12-02] MEDS: CLOPIDOGREL 75 MG TAB PO SCH (09:15)
[2018-12-02] MEDS: PREGABALIN 100 MG CAP (LYRICA) PO SCH ×3 (09:15→20:48)
[2018-12-02] MEDS: FAMOTIDINE 20 MG TAB PO SCH ×2 (09:16→20:49)
[2018-12-02] MEDS: SENOKOT S TAB PO SCH ×2 (09:16→20:48)
[2018-12-02] MEDS: hydroCHLOROthiazide 12.5 MG CAPSULE PO SCH (10:28)
[2018-12-02] MEDS: LISINOPRIL 20 MG TAB PO SCH ×2 (10:28→20:49)
[2018-12-02] MEDS: amLODIPine 10 MG TAB PO SCH (10:29)
[2018-12-02] MEDS: MOM 30ML SUSPENSION UDC PO PRN (12:05)
--- NOTE | 2018-12-02 15:40 | IPNPDOC ---
Subjective Date Seen The patient was seen on 12/02/18. Subjective Chief Complaint/HPI C/o pain in RLE and Rt foot. have reg diet w/o intolerance Objective Physical Examination General Exam: Positive: Alert, Cooperative, Moderate Distress Eye Exam: Positive: PERRLA, Conjunctiva & lids normal, EOMI, Sclera icteric ENT Exam: Positive: Atraumatic Neck Exam: Positive: Supple, +2 carotid pulse wo bruit; Negative: JVD Chest Exam: Positive: Clear to auscultation, Normal air movement; Negative: Rales, Rhonchi, Wheezing, Diminished, Other Heart Exam: Positive: Rate Normal, Regular Rhythm, Normal S1, Normal S2; Negative: Irregular Rhythm, Gallops, Murmurs, Rubs, Other Abdomen Exam: Positive: Normal bowel sounds, Soft; Negative: Tenderness, Mass Extremity Exam: Positive: Edema (Rt lower leg and Rt foot), Tenderness (RLE: LEX in right thigh with mild to mod serosanguious drainage, s/p fasciotomy of lower leg wrapped with Kerlix. tenderness below knee into toes. lost sensation and motor strength in all toes); Negative: Clubbing, Cyanosis, Normal pulses (Rt DP and PT not audible), Swelling, Other Neuro Exam: Positive: Normal Speech, Strength at 5/5 X4 ext, Cranial Nerves 3- 12 NL Psych Exam: Positive: Mental status NL, Oriented x 3 Assessment /Plan Assessment 1. POD#2 S/p redo Rt PFA, EIA, SFA endarterectomy, thromboembolectomy of SFA, E IA for ALI. PA pulse audible, DP and PT used to be audible after surgery. not audible today partially attributed to the edema. 2. POD#1 S/p Rt thigh hematoma evacuation. LEX drain decreased, mild to mod serosanguineous. 3. POD#1 S/p Rt lower leg fasciotomy for compartment syndrome Mild to mod sanguinous drainage on dressing 4. Acute blood loss anemia. H&H 8.6/27.2 vs 9.5/29.1 Plan/VTE VTE Prophylaxis Ordered?: Yes Plan Continue current management. DC Tierney Dressing change daily and prn for Rt groin and thigh wounds. LEX drain care Wet to dry dressing change q8 hrs for Rt lower leg wound. PT Shoshana and Tx with no/light weight bearing on Rt foot VS, I&O, 24H, Rigoberto Vital Signs/I&O Vital Signs Date Time Temp Pulse Resp B/P (MAP) Pulse Ox O2 Delivery O2 Flow Rate FiO2 12/02/18 15:10 20 Nasal Cannula 1.0 12/02/18 12:00 96.9 78 128/72 (90) 93 I&O- Last 24 Hours up to 6 AM 12/02/18 06:00 Intake Total 900 ml Output Total 860 ml Balance 40 ml Laboratory Data 24H LABS Laboratory Tests 2 12/01/18 16:30: Bedside Glucose (Misc Panel) 201H 12/01/18 22:53: Bedside Glucose (Misc Panel) 162H 12/02/18 05:05: Immature Granulocyte % (Auto) 0.5, White Blood Count 14.5H, Red Blood Count 3.06L, Hemoglobin 8.6L, Hematocrit 27.2L, Mean Corpuscular Volume 88.9, Mean Corpuscular Hemoglobin 28.1, Mean Corpuscular Hemoglobin Concent 31.6L, Red Cell Distribution Width 16.5H, Platelet Count 223, Neutrophils (%) (Auto) 71.6H, Lymphocytes (%) (Auto) 17.1L, Monocytes (%) (Auto) 10.0H, Eosinophils (%) (Auto) 0.6, Basophils (%) (Auto) 0.2, Neutrophils # (Auto) 10.4H, Lymphocytes # (Auto) 2.5, Monocytes # (Auto) 1.4H, Eosinophils # (Auto) 0.1, Basophils # (Auto) 0.0, Nucleated Red Blood Cells % (auto) 0.0, Anion Gap 10, Glomerular Filtration Rate > 60.0, Blood Urea Nitrogen 22H, Creatinine 1.24, Sodium Level 135L, Potassium Level 4.0, Chloride Level 100, Carbon Dioxide Level 25, Calcium Level 8.0L 12/02/18 11:38: Bedside Glucose (Misc Panel) 183H CBC/BMP Laboratory Tests 12/02/18 05:05 Red Blood Count 3.06 L, Mean Corpuscular Volume 88.9, Mean Corpuscular Hemoglobin 28.1, Mean Corpuscular Hemoglobin Concent 31.6 L, Red Cell Distribution Width 16.5 H, Neutrophils (%) (Auto) 71.6 H, Lymphocytes (%) (Auto) 17.1 L, Monocytes (%) (Auto) 10.0 H, Eosinophils (%) (Auto) 0.6, Basophils (%) (Auto) 0.2, Neutrophils # (Auto) 10.4 H, Lymphocytes # (Auto) 2.5, Monocytes # (Auto) 1.4 H, Eosinophils # (Auto) 0.1, Basophils # (Auto) 0.0, Calcium Level 8.0 L YESSENIA MCKEON PA-C Dec 02, 2018 15:40
[2018-12-02] MEDS: ATORVASTATIN 20 MG TAB PO SCH (20:48)
[2018-12-03] VITALS (10 sets, daily range): BP systolic 82–126; BP diastolic 50–93; O2SAT 91–94
[2018-12-03] MEDS: NORCO, ANEXSIA 5/325MG TABLET (HYDROcodone/ACETAMINOPHEN) PO PRN ×3 (03:53→16:09)
[2018-12-03] MEDS: SLF 3 ML SYR IV SCH ×3 (04:55→22:00)
[2018-12-03] MEDS: MORPHINE 4 MG/ML 1ML VIAL/SYRINGE (J2270) IV PRN ×2 (04:56→17:39)
[2018-12-03 05:01] LABS: BASO # 0.1 10^3/uL (0.0-0.2); BASO % 0.3 % (0.0-1.0); EOS # 0.1 10^3/uL (0.0-0.50); EOS % 0.8 % (0.0-3.0); HEMATOCRIT 25.7 % (42.0-52.0); HEMOGLOBIN 8.2 g/dl (13.5-17.5); LYMPH # 1.9 10^3/uL (1.5-4.5); LYMPH % 13.4 % (24.0-44.0); MEAN CORPUSCULAR HEMOGLOBIN 28.1 pg (27.0-33.0); MEAN CORPUSCULAR HGB CONC 31.9 g/dl (32.0-36.5); MONO # 1.5 10^3/uL (0.0-0.8); NEUTROPHILS # 10.8 10^3/uL (1.8-7.7); PLATELET COUNT, AUTOMATED 271 10^3/uL (150-450); RED BLOOD COUNT 2.92 10^6/uL (4.30-6.10); WHITE BLOOD COUNT 14.4 10^3/uL (4.0-10.0)
[2018-12-03 05:21] LABS: BLOOD UREA NITROGEN 31 MG/DL (7-18); CALCIUM LEVEL 7.9 MG/DL (8.5-10.1); CARBON DIOXIDE LEVEL 24 MEQ/L (21-32); CHLORIDE LEVEL 99 MEQ/L (98-107); CREATININE FOR GFR 1.29 MG/DL (0.70-1.30); GLOMERULAR FILTRATION RATE > 60.0 (>56); GLUCOSE, FASTING 186 MG/DL (70-100); POTASSIUM SERUM 4.4 MEQ/L (3.5-5.1); SODIUM LEVEL 135 MEQ/L (136-145)
[2018-12-03] MEDS: PENTOXIFYLLINE 400 MG TAB PO SCH ×2 (07:45→17:44)
[2018-12-03] MEDS: HumaLOG INSULIN (NovoLOG) PER UNIT SC SCH ×4 (07:46→21:00)
[2018-12-03] MEDS: amLODIPine 10 MG TAB PO SCH (09:00)
[2018-12-03] MEDS: LISINOPRIL 20 MG TAB PO SCH ×2 (09:00→21:00)
[2018-12-03] MEDS: hydroCHLOROthiazide 12.5 MG CAPSULE PO SCH (09:00)
--- NOTE | 2018-12-03 09:44 | IPNPDOC ---
Subjective Date Seen The patient was seen on 12/03/18. Subjective Chief Complaint/HPI C/o chronic back pain d/t vertebral arthritis, RLE pain improved with Morphine. +flatus -BM. Objective Physical Examination General Exam: Positive: Alert, Cooperative, Moderate Distress Eye Exam: Positive: PERRLA, Conjunctiva & lids normal, EOMI, Sclera icteric ENT Exam: Positive: Atraumatic Neck Exam: Positive: Supple, +2 carotid pulse wo bruit; Negative: JVD Chest Exam: Positive: Clear to auscultation, Normal air movement; Negative: Rales, Rhonchi, Wheezing, Diminished, Other Heart Exam: Positive: Rate Normal, Regular Rhythm, Normal S1, Normal S2; Negative: Irregular Rhythm, Gallops, Murmurs, Rubs, Other Abdomen Exam: Positive: Normal bowel sounds, Soft, Other (distended); Negative: Tenderness, Mass Extremity Exam: Positive: Edema (Rt lower leg and Rt foot warmer than yesterday, swelling improved, ), Normal pulses (Rt DP and PT audible), Tenderness (RLE: LEX in right thigh with mild to mod serosanguious drainage, s/p fasciotomy of lower leg wrapped with Kerlix. tenderness below knee into toes improved. sensation slightly recovering and no motor strength in all toes); Negative: Clubbing, Cyanosis, Swelling, Other Neuro Exam: Positive: Normal Speech, Strength at 5/5 X4 ext, Cranial Nerves 3- 12 NL Psych Exam: Positive: Mental status NL, Oriented x 3 Assessment /Plan Assessment 1. POD#3 S/p redo Rt PFA, EIA, SFA endarterectomy, thromboembolectomy of SFA, EIA for ALI. PA pulse audible, DP and PT used to be audible after surgery. not audible today partially attributed to the edema. 2. POD#2 S/p Rt thigh hematoma evacuation. LEX drain decreased, mild to mod serosanguineous. 3. POD#2 S/p Rt lower leg fasciotomy for compartment syndrome Mild to mod sanguinous drainage on dressing 4. Acute blood loss anemia. Trending down H&H 8.2/25.7 vs 8.6/27.2 5. Marginal hypotension SBP 90/50 this am Plan/VTE VTE Prophylaxis Ordered?: Yes Plan 1. Continue current management 2. Hold antihypertensive when SBP <120 3. Continue Colace as directed 4. Miralax as directed 5. PRBC x1 unit 6. Repeat CBC with Diff next am 7. Repeat BMP next am 8. PT, OT, IS VS, I&O, 24H, Fishbone Vital Signs/I&O Vital Signs Date Time Temp Pulse Resp B/P (MAP) Pulse Ox O2 Delivery O2 Flow Rate FiO2 12/03/18 08:00 97.7 87 22 90/50 (63) 90 Nasal Cannula 2.0 I&O- Last 24 Hours up to 6 AM 12/03/18 06:00 Intake Total 2430 ml Output Total 1915 ml Balance 515 ml Laboratory Data 24H LABS Laboratory Tests 2 12/02/18 11:38: Bedside Glucose (Misc Panel) 183H 12/02/18 17:38: Bedside Glucose (Misc Panel) 158H 12/02/18 20:42: Bedside Glucose (Misc Panel) 191H 12/03/18 04:48: Immature Granulocyte % (Auto) 0.5, White Blood Count 14.4H, Red Blood Count 2.92L, Hemoglobin 8.2L, Hematocrit 25.7L, Mean Corpuscular Volume 88.0, Mean Corpuscular Hemoglobin 28.1, Mean Corpuscular Hemoglobin Concent 31.9L, Red Cell Distribution Width 16.0H, Platelet Count 271, Neutrophils (%) (Auto) 75.0H, Lymphocytes (%) (Auto) 13.4L, Monocytes (%) (Auto) 10.0H, Eosinophils (%) (Auto) 0.8, Basophils (%) (Auto) 0.3, Neutrophils # (Auto) 10.8H, Lymphocytes # (Auto) 1.9, Monocytes # (Auto) 1.5H, Eosinophils # (Auto) 0.1, Basophils # (Auto) 0.1, Nucleated Red Blood Cells % (auto) 0.0, Anion Gap 12, Glomerular Filtration Rate > 60.0, Blood Urea Nitrogen 31H, Creatinine 1.29, Sodium Level 135L, Potassium Level 4.4, Chloride Level 99, Carbon Dioxide Level 24, Calcium Level 7.9L CBC/BMP Laboratory Tests 12/03/18 04:48 Red Blood Count 2.92 L, Mean Corpuscular Volume 88.0, Mean Corpuscular Hemoglob in 28.1, Mean Corpuscular Hemoglobin Concent 31.9 L, Red Cell Distribution Width 16.0 H, Neutrophils (%) (Auto) 75.0 H, Lymphocytes (%) (Auto) 13.4 L, Monocytes (%) (Auto) 10.0 H, Eosinophils (%) (Auto) 0.8, Basophils (%) (Auto) 0.3, Neutrophils # (Auto) 10.8 H, Lymphocytes # (Auto) 1.9, Monocytes # (Auto) 1.5 H, Eosinophils # (Auto) 0.1, Basophils # (Auto) 0.1, Calcium Level 7.9 L YESSENIA MCKEON PA-C Dec 03, 2018 09:44
[2018-12-03] MEDS: MIRALAX *UNIT DOSE* 17GM PACKET PO PRN (10:08)
[2018-12-03] MEDS: CLOPIDOGREL 75 MG TAB PO SCH (10:08)
[2018-12-03] MEDS: MOM 30ML SUSPENSION UDC PO PRN (10:08)
[2018-12-03] MEDS: FAMOTIDINE 20 MG TAB PO SCH ×2 (10:08→21:12)
[2018-12-03] MEDS: PREGABALIN 100 MG CAP (LYRICA) PO SCH ×3 (10:09→21:12)
[2018-12-03] MEDS: SENOKOT S TAB PO SCH ×2 (10:09→21:12)
[2018-12-03] MEDS: DOCUSATE SODIUM 100 MG CAP PO SCH ×2 (10:10→21:12)
[2018-12-03] MEDS ORDERED: LIDOCAINE 1% MDV 20ML VIAL As Ordered ONE (13:04)
[2018-12-03] MEDS ORDERED: SODIUM CHLORIDE 0.9% 1000ML IV ONE (15:00)
--- NOTE | 2018-12-03 16:59 | REP ---
Procedure: PICC line insertion with Patel The procedure was performed under the direct supervision of Dr. Silver. The risks and benefits of the procedure were explained to the patient and informed consent was obtained. The right basilic vein was localized using ultrasound guidance. The skin was prepped and draped in a sterile fashion. 2% lidocaine was used as a local anesthetic. Using ultrasound guidance the basilic vein was cannulated and a 0.018 guidewire was inserted and advanced to the SVC using fluoroscopic guidance. The needle was removed and a 5.5 Faroese dilator and peel-away sheath was inserted over the guide wire. A 5.5 Faroese dual lumen catheter was cut to length of 45 cm. The dilator was removed and the catheter was inserted over the guide wire with the tip ending in the SVC. The peel-away sheath was removed and the catheter was flushed with heparinized saline as per Hospital protocol. The catheter was affixed to the skin and a sterile dressing was applied. The patient tolerated the procedure well and there were no immediate complications. 0.1 minutes of fluoro time was utilized for this procedure. Reviewed by TUSHAR Villa 12/03/2018 03:55 P Electronically Signed by Darwin Silver MD 12/03/2018 04:50 P
[2018-12-03] MEDS: SODIUM CHLORIDE 0.9% INJ 10 ML SYR IV SCH (17:44)
[2018-12-03] MEDS ORDERED: DOCUSATE SODIUM 100 MG CAP PO SCH (21:00)
[2018-12-03] MEDS: ATORVASTATIN 20 MG TAB PO SCH (21:12)
[2018-12-04] VITALS (20 sets, daily range): BP systolic 98–124; BP diastolic 56–78; O2SAT 85–94
[2018-12-04] MEDS: NORCO, ANEXSIA 5/325MG TABLET (HYDROcodone/ACETAMINOPHEN) PO PRN ×3 (01:28→21:00)
[2018-12-04] MEDS: SLF 3 ML SYR IV SCH ×3 (05:45→21:01)
[2018-12-04] MEDS: SODIUM CHLORIDE 0.9% INJ 10 ML SYR IV SCH ×2 (05:45→16:11)
[2018-12-04] MEDS: MORPHINE 4 MG/ML 1ML VIAL/SYRINGE (J2270) IV PRN ×3 (05:50→16:10)
[2018-12-04 05:57] LABS: BASO % 0.2 % (0.0-1.0); EOS % 0.2 % (0.0-3.0); HEMATOCRIT 25.6 % (42.0-52.0); HEMOGLOBIN 8.3 g/dl (13.5-17.5); LYMPH # 2.3 10^3/uL (1.5-4.5); LYMPH % 14.4 % (24.0-44.0); MEAN CORPUSCULAR HEMOGLOBIN 28.2 pg (27.0-33.0); MEAN CORPUSCULAR HGB CONC 32.4 g/dl (32.0-36.5); MEAN CORPUSCULAR VOLUME 87.1 fl (80.0-96.0); MONO # 1.7 10^3/uL (0.0-0.8); MONO % 10.4 % (0.0-5.0); NEUTROPHILS % 73.6 % (36.0-66.0); PLATELET COUNT, AUTOMATED 333 10^3/uL (150-450); RED BLOOD COUNT 2.94 10^6/uL (4.30-6.10); WHITE BLOOD COUNT 16.3 10^3/uL (4.0-10.0)
[2018-12-04 06:24] LABS: BLOOD UREA NITROGEN 33 MG/DL (7-18); CALCIUM LEVEL 7.9 MG/DL (8.5-10.1); CARBON DIOXIDE LEVEL 24 MEQ/L (21-32); CHLORIDE LEVEL 101 MEQ/L (98-107); CREATININE FOR GFR 1.18 MG/DL (0.70-1.30); GLOMERULAR FILTRATION RATE > 60.0 (>56); GLUCOSE, FASTING 188 MG/DL (70-100); POTASSIUM SERUM 4.5 MEQ/L (3.5-5.1); SODIUM LEVEL 135 MEQ/L (136-145)
--- NOTE | 2018-12-04 09:19 | IPNPDOC ---
Subjective Date Seen The patient was seen on 12/04/18. Subjective Chief Complaint/HPI c/o constant RLE pain and paresthesia, blisters in calf, still no BM. Objective Physical Examination General Exam: Positive: Alert, Cooperative, Severe Distress Eye Exam: Positive: PERRLA, Conjunctiva & lids normal, EOMI, Sclera icteric ENT Exam: Positive: Atraumatic Neck Exam: Positive: Supple, +2 carotid pulse wo bruit; Negative: JVD Chest Exam: Positive: Clear to auscultation, Normal air movement; Negative: Rales, Rhonchi, Wheezing, Diminished, Other Heart Exam: Positive: Rate Normal, Regular Rhythm, Normal S1, Normal S2; Negative: Irregular Rhythm, Gallops, Murmurs, Rubs, Other Abdomen Exam: Positive: Normal bowel sounds, Soft, Other (distended); Negative: Tenderness, Mass Extremity Exam: Positive: Edema (Rt lower leg and Rt foot warmer than yesterday, dependent edema in back thigh and lower leg. a couple of large blisterings in tiwari and calf area), Normal pulses (Rt DP and PT audible improved), Tenderness (severe tenderness in RLE thigh and lower leg, paresthetic, still no sensation and motor function in toes); Negative: Clubbing, Cyanosis, Swelling, Other Neuro Exam: Positive: Normal Speech, Strength at 5/5 X4 ext, Cranial Nerves 3- 12 NL Psych Exam: Positive: Mental status NL, Oriented x 3 Assessment /Plan Assessment 1. POD#4 S/p redo Rt PFA, EIA, SFA endarterectomy, thromboembolectomy of SFA, EIA for ALI. RLE distal circulation continually improving with audible DP and PT pulses, slightly improved sensation but no motor function in toes. 2. POD#2 S/p Rt thigh hematoma evacuation. LEX drain with mod serosanguineous. 3. POD#2 S/p Rt lower leg fasciotomy for compartment syndrome Swelling slowly improving with new blistering 4. Acute blood loss anemia. Stable 8.2/25.6 5. Postop constipation no BM since surgery with stool softeners Plan/VTE VTE Prophylaxis Ordered?: Yes Plan 1. Continue current management 2. Relistor 12 mg sq x1 for opioid related constipation. VS, I&O, 24H, Fishbone Vital Signs/I&O Vital Signs Date Time Temp Pulse Resp B/P (MAP) Pulse Ox O2 Delivery O2 Flow Rate FiO2 12/04/18 07:00 92 Nasal Cannula 3.0 12/04/18 06:00 18 12/04/18 04:45 98.5 78 122/65 (84) I&O- Last 24 Hours up to 6 AM 12/04/18 06:00 Intake Total 1760 ml Output Total 1210 ml Balance 550 ml Laboratory Data 24H LABS Laboratory Tests 2 12/03/18 12:25: Bedside Glucose (Misc Panel) 217H 12/03/18 17:03: Bedside Glucose (Misc Panel) 190H 12/03/18 21:04: Bedside Glucose (Misc Panel) 202H 12/04/18 05:38: Immature Granulocyte % (Auto) 1.2, White Blood Count 16.3H, Red Blood Count 2.94L, Hemoglobin 8.3L, Hematocrit 25.6L, Mean Corpuscular Volume 87.1, Mean Corpuscular Hemoglobin 28.2, Mean Corpuscular Hemoglobin Concent 32.4, Red Cell Distribution Width 15.9H, Platelet Count 333, Neutrophils (%) (Auto) 73.6H, Lymphocytes (%) (Auto) 14.4L, Monocytes (%) (Auto) 10.4H, Eosinophils (%) (Auto) 0.2, Basophils (%) (Auto) 0.2, Neutrophils # (Auto) 12.0H, Lymphocytes # (Auto) 2.3, Monocytes # (Auto) 1.7H, Eosinophils # (Auto) 0.0, Basophils # (Auto) 0.0, Nucleated Red Blood Cells % (auto) 0.2H, Anion Gap 10, Glomerular Filtration Rate > 60.0, Blood Urea Nitrogen 33H, Creatinine 1.18, Sodium Level 135L, Potassium Level 4.5, Chloride Level 101, Carbon Dioxide Level 24, Calcium Level 7.9L CBC/BMP Laboratory Tests 12/04/18 05:38 Red Blood Count 2.94 L, Mean Corpuscular Volume 87.1, Mean Corpuscular Hemoglobin 28.2, Mean Corpuscular Hemoglobin Concent 32.4, Red Cell Distribution Width 15.9 H, Neutrophils (%) (Auto) 73.6 H, Lymphocytes (%) (Auto) 14.4 L, Monocytes (%) (Auto) 10.4 H, Eosinophils (%) (Auto) 0.2, Basophils (%) (Auto) 0.2, Neutrophils # (Auto) 12.0 H, Lymphocytes # (Auto) 2.3, Monocytes # (Auto) 1.7 H, Eosinophils # (Auto) 0.0, Basophils # (Auto) 0.0, Calcium Level 7.9 L YESSENIA MCKEON PA-C Dec 04, 2018 09:19
[2018-12-04] MEDS: HumaLOG INSULIN (NovoLOG) PER UNIT SC SCH ×4 (09:45→21:00)
[2018-12-04] MEDS: SENOKOT S TAB PO SCH ×2 (09:49→20:59)
[2018-12-04] MEDS: CLOPIDOGREL 75 MG TAB PO SCH (09:49)
[2018-12-04] MEDS: MOM 30ML SUSPENSION UDC PO PRN (09:49)
[2018-12-04] MEDS: DOCUSATE SODIUM 100 MG CAP PO SCH ×2 (09:49→20:58)
[2018-12-04] MEDS: FAMOTIDINE 20 MG TAB PO SCH ×2 (09:50→20:58)
[2018-12-04] MEDS: PENTOXIFYLLINE 400 MG TAB PO SCH ×2 (09:50→18:29)
[2018-12-04] MEDS: VITAMIN D 50,000 UNITS CAPSULE (ERGOCALCIFEROL 1.25MG) PO SCH (09:50)
[2018-12-04] MEDS: PREGABALIN 100 MG CAP (LYRICA) PO SCH ×3 (09:50→20:58)
[2018-12-04] MEDS: hydroCHLOROthiazide 12.5 MG CAPSULE PO SCH (09:53)
[2018-12-04] MEDS: amLODIPine 10 MG TAB PO SCH (09:54)
[2018-12-04] MEDS: LISINOPRIL 20 MG TAB PO SCH ×2 (09:55→21:00)
[2018-12-04] MEDS ORDERED: METHYLNALTREXONE BROMIDE 12 MG/0.6 ML VIAL (RELISTOR) SC ONE (11:00)
[2018-12-04] MEDS: MIRALAX *UNIT DOSE* 17GM PACKET PO PRN (12:40)
[2018-12-04] MEDS: ATORVASTATIN 20 MG TAB PO SCH (21:00)
[2018-12-05] VITALS: O2SAT 93
[2018-12-05] MEDS: MORPHINE 4 MG/ML 1ML VIAL/SYRINGE (J2270) IV PRN ×7 (01:15→23:26)
[2018-12-05] MEDS: NORCO, ANEXSIA 5/325MG TABLET (HYDROcodone/ACETAMINOPHEN) PO PRN ×3 (03:56→21:31)
[2018-12-05 04:00] VITALS: BP 100/64; O2SAT 94
[2018-12-05] MEDS: SODIUM CHLORIDE 0.9% INJ 10 ML SYR IV SCH ×2 (05:49→18:28)
[2018-12-05] MEDS: SLF 3 ML SYR IV SCH ×3 (05:49→21:41)
[2018-12-05 08:00] VITALS: BP 126/82
[2018-12-05] MEDS: MOM 30ML SUSPENSION UDC PO PRN (08:15)
[2018-12-05] MEDS: HumaLOG INSULIN (NovoLOG) PER UNIT SC SCH ×4 (08:16→21:00)
[2018-12-05] MEDS: CLOPIDOGREL 75 MG TAB PO SCH (08:16)
[2018-12-05] MEDS: MIRALAX *UNIT DOSE* 17GM PACKET PO PRN (08:16)
[2018-12-05] MEDS: SENOKOT S TAB PO SCH ×2 (08:16→21:33)
[2018-12-05] MEDS: PREGABALIN 100 MG CAP (LYRICA) PO SCH ×3 (08:17→21:32)
[2018-12-05] MEDS: DOCUSATE SODIUM 100 MG CAP PO SCH ×2 (08:17→21:00)
[2018-12-05] MEDS: PENTOXIFYLLINE 400 MG TAB PO SCH ×2 (08:17→18:27)
[2018-12-05] MEDS: FAMOTIDINE 20 MG TAB PO SCH ×2 (08:18→21:32)
[2018-12-05] MEDS: hydroCHLOROthiazide 12.5 MG CAPSULE PO SCH (08:19)
[2018-12-05] MEDS: LISINOPRIL 20 MG TAB PO SCH ×2 (08:19→21:30)
[2018-12-05] MEDS: amLODIPine 10 MG TAB PO SCH (08:19)
[2018-12-05] MEDS: SODIUM CHLORIDE 0.9% INJ 10 ML SYR IV PRN ×2 (11:16→14:30)
[2018-12-05 16:17] VITALS: BP 124/67
[2018-12-05 20:00] VITALS: BP 120/61
[2018-12-05] MEDS: ATORVASTATIN 20 MG TAB PO SCH (21:32)
[2018-12-05 23:59] VITALS: BP 111/61
[2018-12-06] MEDS: MORPHINE 4 MG/ML 1ML VIAL/SYRINGE (J2270) IV PRN ×6 (01:34→23:16)
[2018-12-06 04:00] VITALS: BP 115/56
[2018-12-06] MEDS: SLF 3 ML SYR IV SCH (06:10)
[2018-12-06] MEDS: SODIUM CHLORIDE 0.9% INJ 10 ML SYR IV SCH ×2 (06:13→17:21)
[2018-12-06 08:00] VITALS: BP 108/68
[2018-12-06] MEDS: MOM 30ML SUSPENSION UDC PO PRN (08:03)
[2018-12-06] MEDS: CLOPIDOGREL 75 MG TAB PO SCH (08:04)
[2018-12-06] MEDS: DOCUSATE SODIUM 100 MG CAP PO SCH ×2 (08:04→20:23)
[2018-12-06] MEDS: PREGABALIN 100 MG CAP (LYRICA) PO SCH ×3 (08:04→20:22)
[2018-12-06] MEDS: SENOKOT S TAB PO SCH ×2 (08:04→20:23)
[2018-12-06] MEDS: HumaLOG INSULIN (NovoLOG) PER UNIT SC SCH ×4 (08:04→20:24)
[2018-12-06] MEDS: PENTOXIFYLLINE 400 MG TAB PO SCH ×2 (08:04→17:22)
[2018-12-06] MEDS: FAMOTIDINE 20 MG TAB PO SCH ×2 (08:04→20:23)
[2018-12-06] MEDS: hydroCHLOROthiazide 12.5 MG CAPSULE PO SCH (09:00)
[2018-12-06] MEDS: amLODIPine 10 MG TAB PO SCH (09:00)
[2018-12-06] MEDS: LISINOPRIL 20 MG TAB PO SCH ×2 (09:00→21:00)
[2018-12-06] MEDS: SODIUM CHLORIDE 0.9% INJ 10 ML SYR IV PRN ×2 (09:43→13:53)
[2018-12-06] MEDS: PERCOCET 5MG/325MG TAB PO PRN ×3 (11:30→20:23)
[2018-12-06 11:46] LABS: HEMATOCRIT 27.2 % (42.0-52.0); HEMOGLOBIN 8.5 g/dl (13.5-17.5); MEAN CORPUSCULAR HEMOGLOBIN 27.8 pg (27.0-33.0); MEAN CORPUSCULAR HGB CONC 31.3 g/dl (32.0-36.5); MEAN CORPUSCULAR VOLUME 88.9 fl (80.0-96.0); PLATELET COUNT, AUTOMATED 462 10^3/uL (150-450); RED BLOOD COUNT 3.06 10^6/uL (4.30-6.10); WHITE BLOOD COUNT 14.8 10^3/uL (4.0-10.0)
[2018-12-06 12:00] VITALS: BP 106/68
[2018-12-06 13:02] LABS: BLOOD UREA NITROGEN 29 MG/DL (7-18); CALCIUM LEVEL 7.3 MG/DL (8.5-10.1); CARBON DIOXIDE LEVEL 27 MEQ/L (21-32); CHLORIDE LEVEL 99 MEQ/L (98-107); CREATININE FOR GFR 1.16 MG/DL (0.70-1.30); GLOMERULAR FILTRATION RATE > 60.0 (>56); GLUCOSE, FASTING 233 MG/DL (70-100); POTASSIUM SERUM 4.7 MEQ/L (3.5-5.1); SODIUM LEVEL 134 MEQ/L (136-145)
[2018-12-06 16:00] VITALS: BP 100/58
[2018-12-06 20:00] VITALS: BP 110/59
[2018-12-06] MEDS: ATORVASTATIN 20 MG TAB PO SCH (20:23)
[2018-12-06 23:59] VITALS: BP 118/70
[2018-12-07] MEDS: PERCOCET 5MG/325MG TAB PO PRN ×4 (01:42→17:43)
[2018-12-07] MEDS: MORPHINE 4 MG/ML 1ML VIAL/SYRINGE (J2270) IV PRN ×5 (03:51→20:42)
[2018-12-07 04:45] VITALS: BP 126/61
[2018-12-07] MEDS: SODIUM CHLORIDE 0.9% INJ 10 ML SYR IV SCH ×2 (05:58→17:44)
[2018-12-07] MEDS: PENTOXIFYLLINE 400 MG TAB PO SCH ×2 (07:30→17:42)
[2018-12-07] MEDS: HumaLOG INSULIN (NovoLOG) PER UNIT SC SCH ×4 (07:31→20:51)
[2018-12-07] MEDS: amLODIPine 10 MG TAB PO SCH (09:00)
[2018-12-07] MEDS: DOCUSATE SODIUM 100 MG CAP PO SCH ×2 (09:00→20:39)
[2018-12-07] MEDS: LISINOPRIL 20 MG TAB PO SCH ×2 (09:00→20:52)
[2018-12-07] MEDS: hydroCHLOROthiazide 12.5 MG CAPSULE PO SCH (09:00)
[2018-12-07] MEDS: SODIUM CHLORIDE 0.9% INJ 10 ML SYR IV PRN ×3 (09:50→15:51)
[2018-12-07] MEDS: PREGABALIN 100 MG CAP (LYRICA) PO SCH ×3 (09:50→20:38)
[2018-12-07] MEDS: FAMOTIDINE 20 MG TAB PO SCH ×2 (09:50→20:37)
[2018-12-07] MEDS: CLOPIDOGREL 75 MG TAB PO SCH (09:50)
[2018-12-07] MEDS: SENOKOT S TAB PO SCH ×2 (10:57→20:37)
--- NOTE | 2018-12-07 10:58 | IPNPDOC ---
Subjective Date Seen The patient was seen on 12/07/18. Subjective Chief Complaint/HPI RLE pain improved, still not able to feel and move Rt toes. +BM. Objective Physical Examination General Exam: Positive: Alert, Cooperative, Moderate Distress Eye Exam: Positive: PERRLA, Conjunctiva & lids normal, EOMI, Sclera icteric ENT Exam: Positive: Atraumatic Neck Exam: Positive: Supple, +2 carotid pulse wo bruit; Negative: JVD Chest Exam: Positive: Clear to auscultation, Normal air movement; Negative: Rales, Rhonchi, Wheezing, Diminished, Other Heart Exam: Positive: Rate Normal, Regular Rhythm, Normal S1, Normal S2; Negative: Irregular Rhythm, Gallops, Murmurs, Rubs, Other Abdomen Exam: Positive: Normal bowel sounds, Soft, Other (distended); Negative: Tenderness, Mass Extremity Exam: Positive: Edema (RLE swelling improved, stable blisters tiwari and calf area, groin wounds healing No Sx/S infection, LEX drain in Rt thigh with 50 cc serosanguinous drainage. Rt foot still swelling), Normal pulses (Rt DP and PT biphasic and strong, Lt DP and PT biphasic), Tenderness (Improved, still paresthetic to Rt foot, still no sensation and motor function in toes); Negative: Clubbing, Cyanosis, Swelling Skin Exam: Positive: Nl turgor and temperature Neuro Exam: Positive: Normal Speech, Strength at 5/5 X4 ext, Cranial Nerves 3- 12 NL Psych Exam: Positive: Mental status NL, Mood NL, Oriented x 3 Assessment /Plan Assessment 1. POD#7 S/p redo Rt PFA, EIA, SFA endarterectomy, thromboembolectomy of SFA, EIA for ALI. RLE distal circulation continually improving with strong distal pulses, slightly improved sensation but still no motor function in toes. 2. POD#5 S/p Rt thigh hematoma evacuation. LEX drain 50 cc /24 hrs, serosanguineous. 3. POD#5 S/p Rt lower leg fasciotomy for compartment syndrome Swelling improved with stable blistering, No Sx/S infection 4. Acute blood loss anemia. Improved 8.5/27.2 Plan/VTE VTE Prophylaxis Ordered?: Yes Plan Continue current regimen. Continue to monitor BP and hold antihypertensives unless SBP > normal range. DC LEX drain. Groin wound dressing change prn. Calf fasciotomy dressing change q 8hrs. PT, OT, IS Transfer to floor today. VS, I&O, 24H, Fishbone Vital Signs/I&O Vital Signs Date Time Temp Pulse Resp B/P (MAP) Pulse Ox O2 Delivery O2 Flow Rate FiO2 12/07/18 09:50 20 12/07/18 08:00 97.7 77 90 Room Air 12/07/18 07:30 112/78 12/07/18 04:45 2.0 I&O- Last 24 Hours up to 6 AM 12/07/18 06:00 Intake Total 1780 ml Output Total 1258 ml Balance 522 ml Laboratory Data 24H LABS Laboratory Tests 2 12/06/18 11:36: Nucleated Red Blood Cells % (auto) 0.4H, Anion Gap 8, Glomerular Filtration Rate > 60.0, Blood Urea Nitrogen 29H, Creatinine 1.16, Sodium Level 134L, Potassium Level 4.7, Chloride Level 99, Carbon Dioxide Level 27, Calcium Level 7.3L 12/06/18 17:08: Bedside Glucose (Misc Panel) 226H 12/06/18 20:15: Bedside Glucose (Misc Panel) 204H 12/07/18 04:02: Bedside Glucose (Misc Panel) 191H CBC/BMP Laboratory Tests 12/06/18 11:36 Red Blood Count 3.06 L, Mean Corpuscular Volume 88.9, Mean Corpuscular Hemoglobin 27.8, Mean Corpuscular Hemoglobin Concent 31.3 L, Red Cell Distribution Width 16.0 H, Calcium Level 7.3 L YESSENIA MCKEON PA-C Dec 07, 2018 10:58
[2018-12-07 11:18] LABS: BASO % 0.2 % (0.0-1.0); EOS # 0.1 10^3/uL (0.0-0.50); EOS % 0.6 % (0.0-3.0); HEMATOCRIT 25.9 % (42.0-52.0); HEMOGLOBIN 8.1 g/dl (13.5-17.5); LYMPH # 1.8 10^3/uL (1.5-4.5); LYMPH % 11.3 % (24.0-44.0); MEAN CORPUSCULAR HEMOGLOBIN 27.6 pg (27.0-33.0); MEAN CORPUSCULAR HGB CONC 31.3 g/dl (32.0-36.5); MEAN CORPUSCULAR VOLUME 88.1 fl (80.0-96.0); MONO # 1.1 10^3/uL (0.0-0.8); MONO % 7.2 % (0.0-5.0); NEUTROPHILS # 12.7 10^3/uL (1.8-7.7); NEUTROPHILS % 80.1 % (36.0-66.0); PLATELET COUNT, AUTOMATED 494 10^3/uL (150-450); RED BLOOD COUNT 2.94 10^6/uL (4.30-6.10); WHITE BLOOD COUNT 15.9 10^3/uL (4.0-10.0)
[2018-12-07 11:40] LABS: BLOOD UREA NITROGEN 25 MG/DL (7-18); CALCIUM LEVEL 7.5 MG/DL (8.5-10.1); CARBON DIOXIDE LEVEL 27 MEQ/L (21-32); CHLORIDE LEVEL 101 MEQ/L (98-107); CREATININE FOR GFR 1.06 MG/DL (0.70-1.30); GLOMERULAR FILTRATION RATE > 60.0 (>56); GLUCOSE, FASTING 232 MG/DL (70-100); POTASSIUM SERUM 4.9 MEQ/L (3.5-5.1); SODIUM LEVEL 133 MEQ/L (136-145)
[2018-12-07 12:00] VITALS: BP 133/62
[2018-12-07 16:00] VITALS: BP 126/87
[2018-12-07 20:00] VITALS: BP 145/65
[2018-12-07] MEDS: ATORVASTATIN 20 MG TAB PO SCH (20:37)
[2018-12-07] MEDS: CLINDAMYCIN 600 MG in APPROPRIATE DILUENT 1 EA IV SCH (20:40)
[2018-12-07] MEDS: CIPROFLOXACIN 400 MG in APPROPRIATE DILUENT 1 EA IV SCH (22:34)
[2018-12-07 23:59] VITALS: BP 138/72
[2018-12-08] MEDS: SODIUM CHLORIDE 0.9% INJ 10 ML SYR IV PRN ×3 (00:14→12:35)
[2018-12-08] MEDS: PERCOCET 5MG/325MG TAB PO PRN ×4 (00:19→22:42)
[2018-12-08 04:00] VITALS: BP 107/68
[2018-12-08] MEDS: CLINDAMYCIN 600 MG in APPROPRIATE DILUENT 1 EA IV SCH ×3 (04:19→20:56)
[2018-12-08] MEDS: SODIUM CHLORIDE 0.9% INJ 10 ML SYR IV SCH ×2 (04:20→17:52)
[2018-12-08] MEDS: MORPHINE 4 MG/ML 1ML VIAL/SYRINGE (J2270) IV PRN ×4 (04:22→20:57)
[2018-12-08 05:51] LABS: BASO # 0.1 10^3/uL (0.0-0.2); BASO % 0.3 % (0.0-1.0); EOS # 0.1 10^3/uL (0.0-0.50); EOS % 0.5 % (0.0-3.0); HEMATOCRIT 26.5 % (42.0-52.0); HEMOGLOBIN 8.3 g/dl (13.5-17.5); LYMPH % 11.5 % (24.0-44.0); MEAN CORPUSCULAR HEMOGLOBIN 27.4 pg (27.0-33.0); MEAN CORPUSCULAR HGB CONC 31.3 g/dl (32.0-36.5); MEAN CORPUSCULAR VOLUME 87.5 fl (80.0-96.0); MONO # 1.3 10^3/uL (0.0-0.8); MONO % 7.7 % (0.0-5.0); NEUTROPHILS # 13.7 10^3/uL (1.8-7.7); NEUTROPHILS % 79.5 % (36.0-66.0); PLATELET COUNT, AUTOMATED 533 10^3/uL (150-450); RED BLOOD COUNT 3.03 10^6/uL (4.30-6.10); WHITE BLOOD COUNT 17.2 10^3/uL (4.0-10.0)
[2018-12-08 06:14] LABS: BLOOD UREA NITROGEN 18 MG/DL (7-18); CALCIUM LEVEL 8.3 MG/DL (8.5-10.1); CARBON DIOXIDE LEVEL 26 MEQ/L (21-32); CHLORIDE LEVEL 99 MEQ/L (98-107); CREATININE FOR GFR 0.95 MG/DL (0.70-1.30); GLOMERULAR FILTRATION RATE > 60.0 (>56); GLUCOSE, FASTING 196 MG/DL (70-100); POTASSIUM SERUM 4.6 MEQ/L (3.5-5.1); SODIUM LEVEL 134 MEQ/L (136-145)
[2018-12-08 08:00] VITALS: BP 100/62
[2018-12-08] MEDS: HumaLOG INSULIN (NovoLOG) PER UNIT SC SCH ×4 (10:09→20:56)
[2018-12-08] MEDS: PREGABALIN 100 MG CAP (LYRICA) PO SCH ×3 (10:10→20:56)
[2018-12-08] MEDS: amLODIPine 10 MG TAB PO SCH (10:10)
[2018-12-08] MEDS: LISINOPRIL 20 MG TAB PO SCH ×2 (10:10→20:56)
[2018-12-08] MEDS: hydroCHLOROthiazide 12.5 MG CAPSULE PO SCH (10:10)
[2018-12-08] MEDS: PENTOXIFYLLINE 400 MG TAB PO SCH ×2 (10:11→17:42)
[2018-12-08] MEDS: DOCUSATE SODIUM 100 MG CAP PO SCH ×2 (10:12→20:56)
[2018-12-08] MEDS: SENOKOT S TAB PO SCH ×2 (10:12→20:56)
[2018-12-08] MEDS: FAMOTIDINE 20 MG TAB PO SCH ×2 (10:13→20:56)
[2018-12-08] MEDS: CLOPIDOGREL 75 MG TAB PO SCH (10:13)
[2018-12-08] MEDS: CIPROFLOXACIN 400 MG in APPROPRIATE DILUENT 1 EA IV SCH ×2 (10:14→22:41)
--- NOTE | 2018-12-08 10:26 | IPNPDOC ---
Subjective Date Seen The patient was seen on 12/08/18. Subjective Chief Complaint/HPI C/o RLE pain mostly in calf, foot, afebrile. Objective Physical Examination General Exam: Positive: Alert, Cooperative, Moderate Distress Eye Exam: Positive: PERRLA, Conjunctiva & lids normal, EOMI, Sclera icteric ENT Exam: Positive: Atraumatic Neck Exam: Positive: Supple, +2 carotid pulse wo bruit; Negative: JVD Chest Exam: Positive: Clear to auscultation, Normal air movement; Negative: Rales, Rhonchi, Wheezing, Diminished, Other Heart Exam: Positive: Rate Normal, Regular Rhythm, Normal S1, Normal S2; Negative: Irregular Rhythm, Gallops, Murmurs, Rubs, Other Abdomen Exam: Positive: Normal bowel sounds, Soft, Other (distended); Negative: Tenderness, Mass Extremity Exam: Positive: Edema (RLE: groin and thigh wounds healing with a brasion, LEX drain in Rt thigh with 68 cc serous drainage. Calf wounds: edematous, lateral with dark red/ black muscular tissue, no drainage, medial with some yellowish necrotic soft tissue, no drainage. hemarragic blisters shrunk, Rt foot swelling improved), Normal pulses (Rt DP and PT biphasic and strong, Lt DP and PT biphasic), Tenderness (Improved, still paresthetic to Rt foot, some sensation but still no motor function in toes); Negative: Clubbing, Cyanosis, Swelling Skin Exam: Positive: Nl turgor and temperature Neuro Exam: Positive: Normal Speech, Strength at 5/5 X4 ext, Cranial Nerves 3- 12 NL Psych Exam: Positive: Mental status NL, Mood NL, Oriented x 3 Assessment /Plan Assessment 1. POD#8 S/p redo Rt PFA, EIA, SFA endarterectomy, thromboembolectomy of SFA, EIA for ALI. RLE continually improving with strong distal pulses, improved sensation but still no motor function in toes. 2. POD#6 S/p Rt thigh hematoma evacuation. 3. POD#6 S/p Rt lower leg fasciotomy for compartment syndrome Swelling improved w/o drainage, no Sx/S infection 4. Leukocytosis Trending up 17.2 vs 15.9, Afebrile. 5. Acute blood loss anemia. Stable Plan/VTE VTE Prophylaxis Ordered?: Yes Plan Continue current management Empirical Cipro 400 mg IV q12hrs Clindamycin 600 mg IV q8hrs DC LEX drain. Calf dressing change daily and prn with foam dressing. Groin wound dressing change daily prn. Transfer to med/surg floor. VS, I&O, [facility] Vital Signs/I&O Vital Signs Date Time Temp Pulse Resp B/P (MAP) Pulse Ox O2 Delivery O2 Flow Rate FiO2 12/08/18 10:11 22 Nasal Cannula 2.0 12/08/18 10:10 116/80 12/08/18 08:00 98.9 86 91 I&O- Last 24 Hours up to 6 AM 12/08/18 05:59 Intake Total 1170 ml Output Total 1885 ml Balance -715 ml Laboratory Data 24H LABS Laboratory Tests 2 12/07/18 10:58: Immature Granulocyte % (Auto) 0.6, White Blood Count 15.9H, Red Blood Count 2.94L, Hemoglobin 8.1L, Hematocrit 25.9L, Mean Corpuscular Volume 88.1, Mean Corpuscular Hemoglobin 27.6, Mean Corpuscular Hemoglobin Concent 31.3L, Red Cell Distribution Width 15.9H, Platelet Count 494H, Neutrophils (%) (Auto) 80.1H, Lymphocytes (%) (Auto) 11.3L, Monocytes (%) (Auto) 7.2H, Eosinophils (%) (Auto) 0.6, Basophils (%) (Auto) 0.2, Neutrophils # (Auto) 12.7H, Lymphocytes # (Auto) 1.8, Monocytes # (Auto) 1.1H, Eosinophils # (Auto) 0.1, Basophils # (Auto) 0.0, Nucleated Red Blood Cells % (auto) 0.1H, Anion Gap 5L, Glomerular Filtration Rate > 60.0, Blood Urea Nitrogen 25H, Creatinine 1.06, Sodium Level 133L, Potassium Level 4.9, Chloride Level 101, Carbon Dioxide Level 27, Calcium Level 7.5L 12/07/18 17:37: Bedside Glucose (Misc Panel) 179H 12/07/18 20:00: Bedside Glucose (Misc Panel) 150H 12/08/18 05:26: Immature Granulocyte % (Auto) 0.5, White Blood Count 17.2H, Red Blood Count 3.03L, Hemoglobin 8.3L, Hematocrit 26.5L, Mean Corpuscular Volume 87.5, Mean Corpuscular Hemoglobin 27.4, Mean Corpuscular Hemoglobin Concent 31.3L, Red Cell Distribution Width 15.9H, Platelet Count 533H, Neutrophils (%) (Auto) 79.5H, Lymphocytes (%) (Auto) 11.5L, Monocytes (%) (Auto) 7.7H, Eosinophils (%) (Auto) 0.5, Basophils (%) (Auto) 0.3, Neutrophils # (Auto) 13.7H, Lymphocytes # (Auto) 2.0, Monocytes # (Auto) 1.3H, Eosinophils # (Auto) 0.1, Basophils # (Auto) 0.1, Nucleated Red Blood Cells % (auto) 0.1H, Anion Gap 9, Glomerular Filtration Rate > 60.0, Blood Urea Nitrogen 18, Creatinine 0.95, Sodium Level 134L, Potassium Level 4.6, Chloride Level 99, Carbon Dioxide Level 26, Calcium Level 8.3L CBC/BMP Laboratory Tests 12/07/18 10:58 Red Blood Count 2.94 L, Mean Corpuscular Volume 88.1, Mean Corpuscular Hemogl obin 27.6, Mean Corpuscular Hemoglobin Concent 31.3 L, Red Cell Distribution Width 15.9 H, Neutrophils (%) (Auto) 80.1 H, Lymphocytes (%) (Auto) 11.3 L, Monocytes (%) (Auto) 7.2 H, Eosinophils (%) (Auto) 0.6, Basophils (%) (Auto) 0.2, Neutrophils # (Auto) 12.7 H, Lymphocytes # (Auto) 1.8, Monocytes # (Auto) 1.1 H, Eosinophils # (Auto) 0.1, Basophils # (Auto) 0.0, Calcium Level 7.5 L 12/08/18 05:26 Red Blood Count 3.03 L, Mean Corpuscular Volume 87.5, Mean Corpuscular Hemogl obin 27.4, Mean Corpuscular Hemoglobin Concent 31.3 L, Red Cell Distribution Width 15.9 H, Neutrophils (%) (Auto) 79.5 H, Lymphocytes (%) (Auto) 11.5 L, Monocytes (%) (Auto) 7.7 H, Eosinophils (%) (Auto) 0.5, Basophils (%) (Auto) 0.3, Neutrophils # (Auto) 13.7 H, Lymphocytes # (Auto) 2.0, Monocytes # (Auto) 1.3 H, Eosinophils # (Auto) 0.1, Basophils # (Auto) 0.1, Calcium Level 8.3 L YESSENIA MCKEON PA-C Dec 08, 2018 10:26
[2018-12-08 12:00] VITALS: BP 140/58
[2018-12-08 13:42] VITALS: BP 131/63
[2018-12-08] MEDS: ATORVASTATIN 20 MG TAB PO SCH (20:56)
[2018-12-08 22:00] VITALS: BP 119/58
[2018-12-09] MEDS: PERCOCET 5MG/325MG TAB PO PRN ×4 (03:04→18:59)
[2018-12-09] MEDS: MORPHINE 4 MG/ML 1ML VIAL/SYRINGE (J2270) IV PRN ×7 (03:50→22:23)
[2018-12-09] MEDS: CLINDAMYCIN 600 MG in APPROPRIATE DILUENT 1 EA IV SCH ×3 (04:31→20:31)
[2018-12-09 06:00] VITALS: BP 128/63
[2018-12-09] MEDS: SODIUM CHLORIDE 0.9% INJ 10 ML SYR IV SCH ×2 (06:00→17:00)
[2018-12-09] MEDS: FAMOTIDINE 20 MG TAB PO SCH ×2 (08:17→20:30)
[2018-12-09] MEDS: HumaLOG INSULIN (NovoLOG) PER UNIT SC SCH ×4 (08:18→21:00)
[2018-12-09] MEDS: PREGABALIN 100 MG CAP (LYRICA) PO SCH ×3 (08:18→20:30)
[2018-12-09] MEDS: hydroCHLOROthiazide 12.5 MG CAPSULE PO SCH ×2 (08:18→08:26)
[2018-12-09] MEDS: CLOPIDOGREL 75 MG TAB PO SCH (08:18)
[2018-12-09] MEDS: PENTOXIFYLLINE 400 MG TAB PO SCH ×2 (08:18→17:00)
[2018-12-09] MEDS: SENOKOT S TAB PO SCH ×2 (08:18→20:30)
[2018-12-09] MEDS: DOCUSATE SODIUM 100 MG CAP PO SCH ×2 (08:18→20:31)
[2018-12-09] MEDS: amLODIPine 10 MG TAB PO SCH (08:23)
[2018-12-09] MEDS: LISINOPRIL 20 MG TAB PO SCH ×2 (08:24→20:30)
[2018-12-09] MEDS: CIPROFLOXACIN 400 MG in APPROPRIATE DILUENT 1 EA IV SCH ×2 (09:59→21:42)
[2018-12-09 14:00] VITALS: BP 118/64
[2018-12-09] MEDS: SODIUM CHLORIDE 0.9% INJ 10 ML SYR IV PRN (14:27)
--- NOTE | 2018-12-09 16:15 | IPNPDOC ---
Subjective Date Seen The patient was seen on 12/09/18. Subjective Chief Complaint/HPI C/o RLE pain, still not able to move Rt toes. Objective Physical Examination General Exam: Positive: Alert, Cooperative, Moderate Distress Eye Exam: Positive: PERRLA, Conjunctiva & lids normal, EOMI, Sclera icteric ENT Exam: Positive: Atraumatic Neck Exam: Positive: Supple, +2 carotid pulse wo bruit; Negative: JVD Chest Exam: Positive: Clear to auscultation, Normal air movement; Negative: Rales, Rhonchi, Wheezing, Diminished, Other Heart Exam: Positive: Rate Normal, Regular Rhythm, Normal S1, Normal S2; Negative: Irregular Rhythm, Gallops, Murmurs, Rubs, Other Abdomen Exam: Positive: Normal bowel sounds, Soft, Other (distended); Negative: Tenderness, Mass Extremity Exam: Positive: Edema (RLE: groin wound malodorous, sloughed skin under the janelle with underneath erythema and inflamation, mod serous drainage with, LEX drain hole appreciated with some pus. Calf wounds: worsening edema, lateral with dark red/ black muscular with yellowish tissue at the edge, medial with some yellowish necrotic soft tissue and serous drainage. hemarragic blisters fused together, Rt foot swelling improved), Normal pulses (Rt DP and PT biphasic and strong, Lt DP and PT biphasic), Tenderness (Improved, still paresthetic to Rt foot, some sensation but still no motor function in toes); Negative: Clubbing, Cyanosis, Swelling Skin Exam: Positive: Nl turgor and temperature Neuro Exam: Positive: Normal Speech, Strength at 5/5 X4 ext, Cranial Nerves 3- 12 NL Psych Exam: Positive: Mental status NL, Mood NL, Oriented x 3 Assessment /Plan Assessment 1. POD#9 S/p redo Rt PFA, EIA, SFA endarterectomy, thromboembolectomy of SFA, EIA for ALI. 2. POD#7 S/p Rt thigh hematoma evacuation. 3. POD#7 S/p RLE fasciotomy for compartment syndrome Possible groin wound infection, The LEX drain hole with some purulent drainage. Worsening calf edema, calf wounds infection to r/o. Afebrile and worsening leukocytosis 17.2 vs 15.9, 4. Acute blood loss anemia, stable Plan/VTE VTE Prophylaxis Ordered?: Yes Plan Con Cipro 400 mg IV q12hrs. Con Clindamycin 600 mg IV q8hrs. Con current pain management with Morphine and Percocet as directed Calf dressing change daily and prn with foam dressing. Groin wound dressing change daily prn. NPO after breakfast Schedule debridement RLE wounds for next pm Case discused with Dr Lopez. VS, I&O, 24H, Fishbone Vital Signs/I&O Vital Signs Date Time Temp Pulse Resp B/P (MAP) Pulse Ox O2 Delivery O2 Flow Rate FiO2 12/09/18 14:26 18 Room Air 12/09/18 14:00 98.1 79 118/64 (82) 99 12/08/18 12:20 2.0 I&O- Last 24 Hours up to 6 AM 12/09/18 06:00 Intake Total 1590 ml Output Total 1275 ml Balance 315 ml Laboratory Data 24H LABS Laboratory Tests 2 12/08/18 16:29: Bedside Glucose (Misc Panel) 152H 12/08/18 19:39: Bedside Glucose (Misc Panel) 178H 12/09/18 05:25: Bedside Glucose (Misc Panel) 182H 12/09/18 11:17: Bedside Glucose (Misc Panel) 175H YESSENIA MCKEON PA-C Dec 09, 2018 16:15
[2018-12-09 20:00] VITALS: BP 118/65
[2018-12-09] MEDS: ATORVASTATIN 20 MG TAB PO SCH (20:30)
[2018-12-10] VITALS (7 sets, daily range): BP systolic 102–129; BP diastolic 55–73; O2SAT 85–88
[2018-12-10] MEDS: PERCOCET 5MG/325MG TAB PO PRN ×2 (01:53→08:13)
[2018-12-10] MEDS: MORPHINE 4 MG/ML 1ML VIAL/SYRINGE (J2270) IV PRN ×3 (03:48→21:26)
[2018-12-10] MEDS: CLINDAMYCIN 600 MG in APPROPRIATE DILUENT 1 EA IV SCH ×3 (04:49→21:19)
[2018-12-10] MEDS: SODIUM CHLORIDE 0.9% INJ 10 ML SYR IV SCH ×2 (04:49→18:00)
[2018-12-10] MEDS: hydroCHLOROthiazide 12.5 MG CAPSULE PO SCH (08:01)
[2018-12-10] MEDS: amLODIPine 10 MG TAB PO SCH (08:01)
[2018-12-10] MEDS: LISINOPRIL 20 MG TAB PO SCH ×2 (08:02→20:48)
[2018-12-10] MEDS: PREGABALIN 100 MG CAP (LYRICA) PO SCH ×4 (08:12→20:43)
[2018-12-10] MEDS: PENTOXIFYLLINE 400 MG TAB PO SCH ×2 (08:12→20:24)
[2018-12-10] MEDS: CLOPIDOGREL 75 MG TAB PO SCH (08:12)
[2018-12-10] MEDS: SENOKOT S TAB PO SCH ×2 (08:12→20:51)
[2018-12-10] MEDS: FAMOTIDINE 20 MG TAB PO SCH ×2 (08:12→20:43)
[2018-12-10] MEDS: DOCUSATE SODIUM 100 MG CAP PO SCH ×2 (08:12→20:51)
[2018-12-10] MEDS: HumaLOG INSULIN (NovoLOG) PER UNIT SC SCH ×4 (08:19→20:50)
[2018-12-10] MEDS: CIPROFLOXACIN 400 MG in APPROPRIATE DILUENT 1 EA IV SCH ×2 (10:05→22:19)
[2018-12-10] MEDS ORDERED: IPRATROPIUM 0.5MG/ALBUTEROL 2.5MG INH SOL UD 3ML (DUONEB)(J7620) As Ordered ONE (15:59)
[2018-12-10] MEDS ORDERED: FUROSEMIDE 20 MG/2 ML VIAL (J1940) As Ordered ONE (16:13)
[2018-12-10] MEDS ORDERED: IPRATROPIUM 0.5MG/ALBUTEROL 2.5MG INH SOL UD 3ML (DUONEB)(J7620) NEB ONE (16:15)
[2018-12-10] MEDS ORDERED: HEPARIN SOD (PORCINE) 5000 UNITS/ML VIAL IV ONE (16:15)
[2018-12-10] MEDS ORDERED: HEPARIN SOD (PORCINE) 5000 UNITS/ML VIAL IV PRN (16:15)
[2018-12-10] MEDS: MORPHINE 10 MG/ML 1ML VIAL (J2270) IV PRN ×4 (16:32→17:15)
[2018-12-10] MEDS ORDERED: MORPHINE 4 MG/ML 1ML VIAL/SYRINGE (J2270) As Ordered ONE ×2 (16:32→16:53)
[2018-12-10 16:36] LABS: HEMOGLOBIN 8.4 g/dl (13.5-17.5); MEAN CORPUSCULAR HEMOGLOBIN 27.5 pg (27.0-33.0); MEAN CORPUSCULAR HGB CONC 31.1 g/dl (32.0-36.5); MEAN CORPUSCULAR VOLUME 88.2 fl (80.0-96.0); PLATELET COUNT, AUTOMATED 476 10^3/uL (150-450); RED BLOOD COUNT 3.06 10^6/uL (4.30-6.10)
[2018-12-10] MEDS ORDERED: FUROSEMIDE 20 MG/2 ML VIAL (J1940) IV ONE (16:45)
--- NOTE | 2018-12-10 16:47 | REP ---
Portable chest x-ray: Sitting AP view: History: Altered mental status. Findings: A right-sided PICC line is seen terminating in the expected location of the superior vena cava. The right lateral pleural angle is excluded from the imaging field of view. Heart is not enlarged. Pulmonary vasculature is not increased. Interstitial markings are diffusely somewhat prominent. No focal infiltrate is seen. There are mild degenerative changes in the thoracic spine. Impression: Diffusely prominent interstitial markings, edema versus fibrosis. Normal heart size. Right-sided PICC line. Electronically Signed by Darwin Silver MD 12/10/2018 04:54 P
[2018-12-10 16:54] LABS: ABG BASE EXCESS -0.6 (-2.0-2.0); ABG HCO3 21.4 MEQ/L (22.0-26.0); ABG O2 SATURATION 94.5 % (95.0-99.0); ABG PARTIAL PRESSURE CO2 27.2 mmHg (35.0-45.0); ABG PARTIAL PRESSURE O2 71.5 mmHg (75.0-100.0); ABG STANDARD HCO3 23.9 MEQ/L (22.0-26.0); ABG TOTAL CO2 22.2 MEQ/L (22.0-29.0); ABG pH (ARTERIAL) 7.513 UNITS (7.350-7.450)
[2018-12-10 17:17] LABS: BLOOD UREA NITROGEN 19 MG/DL (7-18); CALCIUM LEVEL 7.7 MG/DL (8.5-10.1); CARBON DIOXIDE LEVEL 22 MEQ/L (21-32); CHLORIDE LEVEL 103 MEQ/L (98-107); CPK CREATINE PHOSPHOKINASE 2049 U/L (39-308); CREATININE FOR GFR 1.14 MG/DL (0.70-1.30); GLOMERULAR FILTRATION RATE > 60.0 (>56); GLUCOSE, FASTING 179 MG/DL (70-100); MB/CK RELATIVE INDEX 0.23 (< OR =4); POTASSIUM SERUM 5.3 MEQ/L (3.5-5.1); SODIUM LEVEL 135 MEQ/L (136-145); TROPONIN I 0.81 NG/ML (< 0.10)
[2018-12-10] MEDS: HEPARIN DRIP 25,000 UNITS in APPROPRIATE DILUENT 1 EA IV SCH (18:03)
[2018-12-10] MEDS ORDERED: ISOVUE-370 76% 100ML VIAL (Q9967) As Ordered ONE (18:15)
--- NOTE | 2018-12-10 18:24 | CR.PDOC ---
General Date of Consultation: Dec 10, 2018 Consultation REASON FOR CONSULTATION/CHIEF COMPLAINT: [SOB ]. HISTORY OF PRESENT ILLNESS: This is a 58 yo male with b multiple comorbidities including, COPD , DM2, PAD s/p stents etc who is post op day 10 who start having acute sob and confusion today. He is s/p right leg fasciotomy and was planned for debridement today, but was noted to be very sob in moderate distress, so Dr. Lopez called for IM consultation. When I saw patient he already received 20mg iv lasix and duoneb and started on heparin drip, so he was not dyspnic but was in moderate distress from pain in his right leg despite receiving IV morphine. Per Dr. Lopez, this is chronic for him and his leg looks a lot more perfused now than before. Patient does have good capillary refill. He was also noted to start having fever with temp of 101.6 while during my encounter with him. Patient was initially admitted on 11/27/18 for claudication both lower extremities with the right lower extremity being more significant than the left lower extremity. Patient has previously undergone a left iliofemoral bypass graft. Patient has also had bilateral common iliac artery angioplasty and stenting. 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 Hospital course 1. POD#10 S/p redo Rt PFA, EIA, SFA endarterectomy, thromboembolectomy of SFA, EIA for ALI. 2. POD#8 S/p Rt thigh hematoma evacuation. 3. POD#8 S/p RLE fasciotomy for compartment syndrome ALLERGIES: Please see below. HOME MEDICATIONS: Please see below. PAST MEDICAL HISTORY: DM2 COPD (current smoker) PAD s.p stents (see above) PAST SURGICAL HISTORY: fasciotomy right leg left iliofemoral bypass graft bilateral common iliac artery angioplasty and stenting angiography on 10/19/2018 SOCIAL HISTORY: Tobacco use:[y] ROS - all 14 point review of system is negative except for whats listed in HPI Physical exam Gen: moderate distress 2/2 right leg pain , healthy appearing , HEENT: normocephalic, atraumatic, no discharge from ears or nose, no oropharyngeal erythema or exudate, neck is supple, no lymphadenopathy, trachea midline CVS: RRR, normal S1n S2, no murmur, rubs, or gallops, no edema, no jvd Resp: b/l coarse breath sounds and some rhonchi, no wheezes or crackles Abd : soft, tenderness in RUQ and epigastric region, normal bowel sounds, no rebound tenderness or guarding MSK: right leg swelling with dressing covering the area of the fasciotomy, pictures taken from yesterday show yellowish exudate and dark healing skin (possibly eschar), w/o surrounding erythema, bullae noted as well, right leg is mildly warmer than left , it is also more swollen than left, there is also moves all extremities, foot including toes are erythematous and swollen , area of the wound is very tender, capillary refill in within 2 seconds , decreased DP pulse . Neuro: AOAx3, no confusion, no focal deficit Psych: normal mood and affect, good judgment LABORATORY DATA: Please see below. ASSESSMENT/PLAN: dyspnea - ddx pulm edema vs copd exacerbation vs PE - cxr - interstitial marking - edema vs fibrosis, - CTA chest pending - echo pending - venous dopplers pending - duoneb q4h prn, symbicort bid , can consider steroid 40-mg q8h if patient continues to have sob or wheezes - oxygen as needed goal (O2 saturation 90-94%), avoid oxygenation close to 100 give hx of copd - trend troponin, repeat ekg if troponin is elevated , f/u echo - c/w heparin until PE or ACS is r/o Fever - infection - f/u UA - f/u Blood cx - send sputum - start vanc and aztreonam ( pt is allergic to penicilin) - send wound cx - check vanc trough 30mins before the 4th dose of vanco - debridement when patient can tolerate dvt ppx on heparin drip - trend ApTT q6h while on heparin drip - adjust to goal per protocol GI ppx full code Vital Signs/I&O Vital Signs Date Time Temp Pulse Resp B/P (MAP) Pulse Ox O2 Delivery O2 Flow Rate FiO2 12/10/18 17:42 101.0 110 20 129/66 (87) 92 Nasal Cannula 2.0 I&O- Last 24 Hours up to 6 AM 12/10/18 06:00 Intake Total 1270 ml Output Total 400 ml Balance 870 ml Laboratory Data Labs 24H Laboratory Tests 2 12/09/18 21:49: Bedside Glucose (Misc Panel) 179H 12/10/18 06:50: Bedside Glucose (Misc Panel) 150H 12/10/18 11:09: Bedside Glucose (Misc Panel) 227H 12/10/18 15:57: Bedside Glucose (Misc Panel) 188H 12/10/18 16:25: Nucleated Red Blood Cells % (auto) 0.2H, Activated Partial Thromboplast Time 30.2, Anion Gap 10, Glomerular Filtration Rate > 60.0, Blood Urea Nitrogen 19H, Creatinine 1.14, Sodium Level 135L, Potassium Level 5.3H, Chloride Level 103, Carbon Dioxide Level 22, Calcium Level 7.7L, Total Creatine Kinase 2049H, Creatine Kinase MB 5.0H, Creatine Kinase MB Relative Index 0.23, Troponin I 0.81H 12/10/18 16:41: Blood Gas Bicarbonate Standard 23.9, Arterial Blood pH 7.513H, Arterial Blood Partial Pressure CO2 27.2L, Arterial Blood Partial Pressure O2 71.5L, Arterial Blood Total CO2 22.2, Arterial Blood HCO3 21.4L, Arterial Blood Base Excess - 0.6, Arterial Blood Oxygen Saturation 94.5L CBC/BMP Laboratory Tests 12/10/18 16:25 Red Blood Count 3.06 L, Mean Corpuscular Volume 88.2, Mean Corpuscular Hemoglobin 27.5, Mean Corpuscular Hemoglobin Concent 31.1 L, Red Cell Distribution Width 16.2 H, Calcium Level 7.7 L, Total Creatine Kinase 2049 H Allergies Coded Allergies: Ampicillin (Verified Allergy, Intermediate, RASH, 11/27/18) Home Medications Scheduled Amlodipine Besylate (Amlodipine Besylate) 10 Mg Tab, PO DAILY, (Reported) Atorvastatin Calcium (Atorvastatin Calcium) 40 Mg Tab, PO DAILY, (Reported) Canagliflozin (Invokana) 100 Mg Tab, PO DAILY, (Reported) Clopidogrel Bisulfate (Clopidogrel) 75 Mg Tab, PO DAILY, (Reported) Ergocalciferol (Vitamin D) 50,000 Unit Cap, PO 1XWK, (Reported) Glimepiride (Glimepiride) 1 Mg Tab, PO DAILY, (Reported) Hydrochlorothiazide (Hydrochlorothiazide) 12.5 Mg Cap, PO DAILY, (Reported) Lisinopril (Lisinopril) 20 Mg Tab, PO DAILY, (Reported) Metformin Hydrochloride (Metformin HCl) 1,000 Mg Tab, PO BID, (Reported) Pentoxifylline (Pentoxifylline ER) 400 Mg Tabcr, PO BID, (Reported) Pregabalin (Lyrica) 200 Mg Cap, PO TID, (Reported) Tramadol HCl (Tramadol HCl) 50 Mg Tab, PO BID, (Reported) YG CHIN MD Dec 10, 2018 18:24
[2018-12-10 18:27] LABS: APPEARANCE, URINE CLEAR (CLEAR); BACTERIA, URINE AUTO NEGATIVE (NEGATIVE); BILIRUBIN, URINE AUTO NEGATIVE (NEGATIVE); BLOOD, URINE BLOOD NEGATIVE (NEGATIVE); COLOR, URINE YELLOW (YELLOW); GLUCOSE, URINE (UA) AUTO 1+ mg/dL (NEGATIVE); KETONE, URINE AUTO TRACE mg/dL (NEGATIVE); LEUKOCYTE ESTERASE, URINE AUTO NEGATIVE (NEGATIVE); MUCUS, URINE SMALL (NEGATIVE); NITRITE, URINE AUTO NEGATIVE (NEGATIVE); PROTEIN, URINE AUTO NEGATIVE (NEGATIVE); RBC, URINE AUTO 0 /HPF (0-3); SPECIFIC GRAVITY URINE AUTO 1.018 (1.002-1.035); SQUAMOUS EPITHELIAL CELL UR AU 0 /HPF (0-6); UROBILINOGEN, URINE AUTO 0.2 mg/dL (0.0-2.0); WBC, URINE AUTO 1 /HPF (0-3)
--- NOTE | 2018-12-10 19:39 | REPVR ---
EXAM: CT Angiography Chest With Contrast EXAM DATE/TIME: 12/10/2018 6:44 PM CLINICAL HISTORY: 58 years old, male; Pain; Chest pain; Patient HX: Unable to use picc line; Additional info: Questionable pe TECHNIQUE: Axial computed tomographic angiography images of the chest with intravenous contrast using CT angiography protocol. All CT scans at this facility use at least one of these dose optimization techniques: automated exposure control; mA and/or kV adjustment per patient size (includes targeted exams where dose is matched to clinical indication); or iterative reconstruction. Coronal and sagittal reformatted images were created and reviewed. MIP reconstructed images were created and reviewed. CONTRAST: 75 ml of Isovue 370 administered intravenously. COMPARISON: CR PORTABLE CHEST X-RAY 12/10/2018 4:10 PM FINDINGS: Pulmonary arteries: No pulmonary embolus. Aorta: The aorta demonstrates mild atherosclerotic calcification. No aortic dissection or aneurysm. Lungs: Small patchy infiltrates anterior and posterior segment right upper lobe, and right middle and lingula lobes. There is bibasilar compressive atelectasis. Multiple bilateral subpleural noncalcified pulmonary parenchymal nodules measure up to 6 mm in the right middle lobe. Also noted is a more centrally located 6 mm noncalcified nodule right upper lobe. These are likely postinflammatory. Parenchymal stranding in the right middle and middle lobes likely representing atelectasis or chronic fibrotic change. Calcified granuloma left lower lobe. Pleural space: Bilateral lower lobe pleural thickening. Heart: There is severe atherosclerotic calcification of the coronary arteries. Liver: Hepatic steatosis. Spleen: The spleen demonstrates punctate calcifications, consistent with remote granulomatous organism exposure. Lymph nodes: Multiple calcified right hilar lymph nodes. Multiple mediastinal lymph nodes, some calcified measure up to 12 mm in the AP window likely postinflammatory. Bones/joints: The spine demonstrates mild degenerative changes. Soft tissues: Unremarkable. IMPRESSION: 1. Multiple bilateral subpleural noncalcified pulmonary parenchymal nodules measure up to 6 mm in the right middle lobe. Also noted is a more centrally located 6 mm noncalcified nodule right upper lobe. These are likely postinflammatory. For patients at low risk (minimal or absent history of smoking and of other known risk factors), recommend CT at 3-6 months, then consider CT at 18-24 months. For patients at high risk (history of smoking or of other known risk factors), recommend CT at 3-6 months, then CT at 18-24 months. (Yesi et al., Fleischner Society, 2017) 2. No aortic dissection or aneurysm. 3. No pulmonary embolus. Electronically signed by: Scott Rogel On 12/10/2018 19:39:16 PM
--- NOTE | 2018-12-10 19:40 | REPVR ---
EXAM: US Bilateral Duplex Lower Extremity Veins EXAM DATE/TIME: 12/10/2018 7:20 PM CLINICAL HISTORY: 58 years old, male; Pain; Leg, upper; Bilateral; Additional info: Rule out dvt TECHNIQUE: Real-time duplex ultrasound of the Bilateral Lower Extremities with 2-D reynoso scale, color Doppler flow and spectral waveform analysis. Complete exam focused on the bilateral lower extremity veins. COMPARISON: No relevant prior studies available. FINDINGS: Right deep veins: Unremarkable. The common femoral vein was partially obscured by cutaneous janelle with evaluation limited secondary to patient discomfort. The femoral and popliteal veins are patent without thrombus. Normal compressibility, augmentation response and Doppler waveforms. Right superficial veins: Saphenofemoral junction is patent without thrombus. Left deep veins: Unremarkable. The common femoral, femoral and popliteal veins are patent without thrombus. Normal compressibility, augmentation response and Doppler waveforms. Left superficial veins: Saphenofemoral junction is patent without thrombus. Soft tissues: Unremarkable. IMPRESSION: No acute findings. No evidence of deep vein thrombosis. Electronically signed by: Scott Rogel On 12/10/2018 19:40:24 PM
[2018-12-10] MEDS: AZTREONAM 1 GM in D5W MINI-BAG PLUS 50 ML IV SCH (20:24)
[2018-12-10] MEDS: ATORVASTATIN 20 MG TAB PO SCH (20:43)
--- NOTE | 2018-12-10 21:25 | PHACANCOPD ---
PHARMACY VANCOMYCIN DOSING Pt Demographics Demographics Patient Age:58 , Weight:101.700 , Gender: male Events Past 24 Hours Events Past 24 Hours: NO: Dialysis, Diuretic Therapy, Change in CrCl, Fever, Elevation in WBC, Pending Diagnostics, Pending Procedures, Other Vancomycin Vancomycin indication: WOUND INFECTION Vancomycin Target Ranges: 10-20 mcg/ml Vancomycin Load Y/N: Yes Load Dose Date Time Vancomycin Load Dose: 2GM Date: 12/10/18 Time: 23:00 Vancomycin Dose Date: 12/11/18. Current Vancomycin Dose: [1GM IV Q12H (08:00)] Intermittent Dosing?: No Labs Labs Laboratory Tests 12/10/18 16:25 Red Blood Count 3.06 L, Mean Corpuscular Volume 88.2, Mean Corpuscular Hemoglobin 27.5, Mean Corpuscular Hemoglobin Concent 31.1 L, Red Cell Distribution Width 16.2 H, Calcium Level 7.7 L, Total Creatine Kinase 2049 H Creatinine Clearance Date:12/10/18. Creatinine Clearance: [>60mL/min]. Assessment and Plan Maintaining Current Dose?: Yes Reason for dose change: No Dose Change Pharmacist Note Pharmacist Note Date: 12/10/18. PharmD note: MULTIPLE IV ABX REGIMEN NOTED. VANCO 2GM LOAD 23:00 TONIGHT OVER 2HRS FOLLOWED BY VANCO 1GM IV Q12H STARTING AT 8AM 12/11/18 A VANCO TROUGH WILL BE ORDERED WHEN HE IS AT [facility] Dec 10, 2018 21:25
[2018-12-10] MEDS ORDERED: ACETAMINOPHEN TAB 650MG DOSE (2X325MG) PO PRN (22:15)
[2018-12-10] MEDS ORDERED: VANCOMYCIN HCL 1,000 MG, VIAL MATE ADAPTER 1 EACH in D5W 250 ML IV ONE (23:00)
[2018-12-10 23:25] LABS: MB/CK RELATIVE INDEX 0.31 (< OR =4); TROPONIN I 1.86 NG/ML (< 0.10)
[2018-12-10] MEDS ORDERED: NS 1,000 ML IV ONE (23:45)
[2018-12-10] MEDS ORDERED: IBUPROFEN 600 MG TAB As Ordered ONE (23:58)
[2018-12-11] VITALS (18 sets, daily range): BP systolic 90–140; BP diastolic 52–99; O2SAT 89–96
[2018-12-11] MEDS ORDERED: VANCOMYCIN HCL 1,000 MG, VIAL MATE ADAPTER 1 EACH in D5W 250 ML IV ONE ×3
[2018-12-11] MEDS ORDERED: KETOROLAC 30 MG/ML VIAL (J1885) As Ordered ONE
[2018-12-11] MEDS ORDERED: IBUPROFEN 600 MG TAB PO PRN
[2018-12-11] MEDS ORDERED: KETOROLAC 30 MG/ML VIAL (J1885) IV ONE
[2018-12-11 00:03] LABS: ABG BASE EXCESS -4.3 (-2.0-2.0); ABG HCO3 18.7 MEQ/L (22.0-26.0); ABG O2 SATURATION 99.5 % (95.0-99.0); ABG PARTIAL PRESSURE CO2 26.8 mmHg (35.0-45.0); ABG STANDARD HCO3 20.9 MEQ/L (22.0-26.0); ABG TOTAL CO2 19.5 MEQ/L (22.0-29.0); ABG pH (ARTERIAL) 7.461 UNITS (7.350-7.450)
[2018-12-11 00:04] LABS: ABG PARTIAL PRESSURE O2 179.7 mmHg (75.0-100.0)
[2018-12-11 00:13] LABS: HEMATOCRIT 25.2 % (42.0-52.0); HEMOGLOBIN 7.9 g/dl (13.5-17.5); MEAN CORPUSCULAR HEMOGLOBIN 27.2 pg (27.0-33.0); MEAN CORPUSCULAR HGB CONC 31.3 g/dl (32.0-36.5); MEAN CORPUSCULAR VOLUME 86.9 fl (80.0-96.0); PLATELET COUNT, AUTOMATED 438 10^3/uL (150-450); WHITE BLOOD COUNT 9.3 10^3/uL (4.0-10.0)
[2018-12-11] MEDS ORDERED: NS 1,000 ML IV SCH (00:30)
[2018-12-11] MEDS ORDERED: NS 1,000 ML IV ONE (00:30)
[2018-12-11 00:38] LABS: CALCIUM LEVEL 7.7 MG/DL (8.5-10.1); CREATININE FOR GFR 1.36 MG/DL (0.70-1.30); GLOMERULAR FILTRATION RATE 57.1 (>56); TOTAL PROTEIN 6.2 GM/DL (6.4-8.2)
--- NOTE | 2018-12-11 02:10 | IPNPDOC ---
Date Seen The patient was seen on 12/11/18. Progress Note I was called at bedside at 11:20pm to evaluate the patient for AMS and Low BP. It was difficult to obtain a blood pressure and he continue to have fevers with Tmax of 102.6. His respiration rate increased and was stating 90s on 2 L NC. Tylenol, Ibuprofen and Toradolx1 was ordered. ABG was ordered and was good. Lactic Acid was elevated at 3.3 and exam he appeared dry and uncomfortable. Wounds were evaluated and they were puralant with some drainage. Left Lower foot significantly tender to touch Pulse can be palpated and Patient can move the foot very little minimally. 2L NS bolus was ordered and 1 L NS at 125mls/hour. Cardiac Markers were obtained with showed elevated trop from 0.80 to 1.86. EKG at beside showed no change from baseline, V4-[address] depression. He denies having any chest discomfort at bedside though. Dr. Lopez was called and informed of these findings. Continue with antibiotics as proscribe and Imaging will be obtained when fluids are completed. VS, I&O, 24H, Fishbone Vital Signs/I&O Vital Signs Date Time Temp Pulse Resp B/P (MAP) Pulse Ox O2 Delivery O2 Flow Rate FiO2 12/11/18 01:08 100.2 12/10/18 22:35 113 24 112/55 (74) Nasal Cannula 2.0 12/10/18 21:36 94 I&O- Last 24 Hours up to 6 AM 12/11/18 06:00 Intake Total 380 ml Output Total 1250 ml Balance -870 ml Laboratory Data 24H LABS Laboratory Tests 2 12/10/18 06:50: Bedside Glucose (Misc Panel) 150H 12/10/18 11:09: Bedside Glucose (Misc Panel) 227H 12/10/18 15:57: Bedside Glucose (Misc Panel) 188H 12/10/18 16:25: Nucleated Red Blood Cells % (auto) 0.2H, Activated Partial Thromboplast Time 30.2, Anion Gap 10, Glomerular Filtration Rate > 60.0, Blood Urea Nitrogen 19H, Creatinine 1.14, Sodium Level 135L, Potassium Level 5.3H, Chloride Level 103, Carbon Dioxide Level 22, Calcium Level 7.7L, Total Creatine Kinase 2049H, Creatine Kinase MB 5.0H, Creatine Kinase MB Relative Index 0.23, Troponin I 0.81H 12/10/18 16:33: Urine Appearance CLEAR, Urine Color YELLOW, Urine pH 5.0, Urine Specific [place] 1.018, Urine Protein NEGATIVE, Urine Glucose (UA) 1+H, Urine Ketones TRACEH, Urine Urobilinogen 0.2, Urine Bilirubin NEGATIVE, Urine Leukocyte Esterase NEGATIVE, Urine Blood NEGATIVE, Urine Nitrite NEGATIVE, Urine WBC (Auto) 1, Urine RBC (Auto) 0, Urine Hyaline Casts (Auto) 0, Urine Bacteria (Auto) NEGATIVE, Urine Squamous Epithelial Cells 0, Urine Mucus (Auto) SMALL, Urine Sperm (Auto) 12/10/18 16:41: Blood Gas Bicarbonate Standard 23.9, Arterial Blood pH 7.513H, Arterial Blood Partial Pressure CO2 27.2L, Arterial Blood Partial Pressure O2 71.5L, Arterial Blood Total CO2 22.2, Arterial Blood HCO3 21.4L, Arterial Blood Base Excess - 0.6, Arterial Blood Oxygen Saturation 94.5L 12/10/18 20:50: Bedside Glucose (Misc Panel) 199H 12/10/18 22:29: Total Creatine Kinase 1971H, Creatine Kinase MB 6.0H, Creatine Kinase MB Relative Index 0.31, Troponin I 1.86#*H 12/10/18 23:40: Blood Gas Bicarbonate Standard 20.9L, Arterial Blood pH 7.461H, Arterial Blood Partial Pressure CO2 26.8L, Arterial Blood Partial Pressure O2 179.7H, Arterial Blood Total CO2 19.5L, Arterial Blood HCO3 18.7L, Arterial Blood Base Excess - 4.3L, Arterial Blood Oxygen Saturation 99.5H 12/10/18 23:44: Nucleated Red Blood Cells % (auto) 0.3H, Anion Gap 13, Glomerular Filtration Rate 57.1, Lactic Acid Level 3.3*H, Blood Urea Nitrogen 23H, Creatinine 1.36H, Sodium Level 137, Potassium Level 5.0, Chloride Level 102, Carbon Dioxide Level 22, Calcium Level 7.7L, Aspartate Amino Transf (AST/SGOT) 209H, Alanine Aminotransferase (ALT/SGPT) 135H, Alkaline Phosphatase 229H, Total Bilirubin 1.0, Total Protein 6.2L, Albumin 2.0L, Albumin/Globulin Ratio 0.48L 12/10/18 23:48: Activated Partial Thromboplast Time 105.8H CBC/BMP Laboratory Tests 12/10/18 16:25 Red Blood Count 3.06 L, Mean Corpuscular Volume 88.2, Mean Corpuscular Hemoglobin 27.5, Mean Corpuscular Hemoglobin Concent 31.1 L, Red Cell Distribution Width 16.2 H, Calcium Level 7.7 L, Total Creatine Kinase 2049 H 12/10/18 23:44 Red Blood Count 2.90 L, Mean Corpuscular Volume 86.9, Mean Corpuscular Hemoglobin 27.2, Mean Corpuscular Hemoglobin Concent 31.3 L, Red Cell Distribution Width 16.2 H, Calcium Level 7.7 L, Aspartate Amino Transf (AST/SGOT) 209 H, Alanine Aminotransferase (ALT/SGPT) 135 H, Alkaline Phosphatase 229 H, Total Bilirubin 1.0, Total Protein 6.2 L, Albumin 2.0 L Microbiology Microbiology 12/10/18 Blood Culture, Received Pending 12/10/18 Blood Culture, Received Pending 12/10/18 Urine Culture, Received Pending 12/10/18 Gram Stain, Received Pending 12/10/18 Wound Culture, Received Pending GME ATTESTATION GME ATTESTATION My faculty preceptor for this patient encounter was physically present during the encounter and was fully available. All aspects of the patient interview, examination, medical decision making process, and medical care plan development were reviewed and approved by the faculty preceptor. The faculty preceptor is aware and concurs with the plan as stated in the body of this note and will attest to such by his/her cosignature. ATTENDING NOTE Attestation: I have supervised the medical doctor md/medical director and discussed patients evaluation and medical management. I agree with the outlined management plan as documented in the residents note. ASHLEY GARCIA DO Dec 11, 2018 02:10 GEORGE CHAMBERS MD Dec 11, 2018 19:35
[2018-12-11] MEDS: AZTREONAM 1 GM in D5W MINI-BAG PLUS 50 ML IV SCH (02:57)
[2018-12-11 04:25] LABS: BASO % 0.1 % (0.0-1.0); HEMATOCRIT 24.3 % (42.0-52.0); HEMOGLOBIN 7.5 g/dl (13.5-17.5); LYMPH # 0.9 10^3/uL (1.5-4.5); LYMPH % 9.4 % (24.0-44.0); MEAN CORPUSCULAR HEMOGLOBIN 27.6 pg (27.0-33.0); MEAN CORPUSCULAR HGB CONC 30.9 g/dl (32.0-36.5); MEAN CORPUSCULAR VOLUME 89.3 fl (80.0-96.0); MONO # 0.7 10^3/uL (0.0-0.8); MONO % 7.3 % (0.0-5.0); NEUTROPHILS # 7.7 10^3/uL (1.8-7.7); NEUTROPHILS % 82.6 % (36.0-66.0); PLATELET COUNT, AUTOMATED 395 10^3/uL (150-450); RED BLOOD COUNT 2.72 10^6/uL (4.30-6.10); WHITE BLOOD COUNT 9.3 10^3/uL (4.0-10.0)
[2018-12-11] MEDS: CLINDAMYCIN 600 MG in APPROPRIATE DILUENT 1 EA IV SCH (04:38)
[2018-12-11] MEDS: SODIUM CHLORIDE 0.9% INJ 10 ML SYR IV SCH ×2 (06:17→18:49)
[2018-12-11 06:20] LABS: BLOOD UREA NITROGEN 25 MG/DL (7-18); CALCIUM LEVEL 7.1 MG/DL (8.5-10.1); CARBON DIOXIDE LEVEL 23 MEQ/L (21-32); CHLORIDE LEVEL 104 MEQ/L (98-107); CPK CREATINE PHOSPHOKINASE 1931 U/L (39-308); CREATININE FOR GFR 1.25 MG/DL (0.70-1.30); GLOMERULAR FILTRATION RATE > 60.0 (>56); GLUCOSE, FASTING 212 MG/DL (70-100); MB/CK RELATIVE INDEX 0.75 (< OR =4); POTASSIUM SERUM 4.6 MEQ/L (3.5-5.1); SODIUM LEVEL 136 MEQ/L (136-145); TROPONIN I 4.12 NG/ML (< 0.10)
--- NOTE | 2018-12-11 06:25 | REP ---
Clinical: Decreased breath sounds. Comparison: 12/10/2018. Findings: Stable PICC line with tip in the SVC. Mediastinum and cardiac silhouette are stable. Lung lane demonstrate diffuse chronic interstitial changes similar to prior examination. No significant acute consolidation, obvious effusion, or pneumothorax identified. Skeletal structures intact. Impression: Chronic stable changes. No new acute process identified. Electronically Signed by Rambo Tobin MD 12/11/2018 06:17 A
[2018-12-11] MEDS ORDERED: FUROSEMIDE 40 MG/4 ML VIAL (J1940) IV ONE (07:15)
--- NOTE | 2018-12-11 08:32 | PHACANCOPD ---
PHARMACY VANCOMYCIN DOSING Pt Demographics Demographics Patient Age:58 , Weight:105.500 , Gender: male Vancomycin Vancomycin indication: WOUND INFECTION Vancomycin Target Ranges: 10-20 mcg/ml Vancomycin Load Y/N: Yes Load Dose Date Time Vancomycin Load Dose: 2GM Date: 12/10/18 Time: 23:00 Vancomycin Dose Date: 12/11/18. Current Vancomycin Dose: [1GM IV Q12H (08:00)] Intermittent Dosing?: No Labs Micro Microbiology 12/10/18 Blood Culture, Received Pending 12/10/18 Blood Culture, Received Pending 12/10/18 Urine Culture, Received Pending 12/10/18 Gram Stain, Received Pending 12/10/18 Wound Culture, Received Pending Creatinine Clearance Date:12/10/18. Creatinine Clearance: [>60mL/min]. Assessment and Plan Maintaining Current Dose?: Yes Reason for dose change: No Dose Change Pharmacist Note Pharmacist Note 12/11/18: Day #2 IV vancomycin therapy. Scr remains stable at 1.25 this morning from 1.36 last night. BUN also remains stable. A trough has been scheduled to be drawn tomorrow, 12/12/18, @0700 prior to the 4th dose. Blood, wound, and urine cultures are pending. We will continue to monitor and make dose adjustments if needed. Date: 12/10/18. PharmD note: MULTIPLE IV ABX REGIMEN NOTED. VANCO 2GM LOAD 23:00 TONIGHT OVER 2HRS FOLLOWED BY VANCO 1GM IV Q12H STARTING AT 8AM 12/11/18 A VANCO TROUGH WILL BE ORDERED WHEN HE IS AT [facility] Dec 11, 2018 08:32
[2018-12-11] MEDS: VANCOMYCIN HCL 1,000 MG, VIAL MATE ADAPTER 1 EACH in D5W 250 ML IV SCH ×2 (08:44→20:04)
[2018-12-11] MEDS: SODIUM CHLORIDE 0.9% INJ 10 ML SYR IV PRN ×2 (08:45→21:40)
[2018-12-11] MEDS: HumaLOG INSULIN (NovoLOG) PER UNIT SC SCH ×4 (08:49→21:30)
[2018-12-11] MEDS ORDERED: LISINOPRIL 20 MG TAB PO SCH (09:00)
[2018-12-11] MEDS ORDERED: amLODIPine 10 MG TAB PO SCH (09:00)
[2018-12-11] MEDS ORDERED: METOPROLOL TART 12.5 MG PER 1/2 TAB PO SCH (09:00)
[2018-12-11 09:30] LABS: ABG BASE EXCESS -3.4 (-2.0-2.0); ABG HCO3 22.4 MEQ/L (22.0-26.0); ABG O2 SATURATION 92.5 % (95.0-99.0); ABG PARTIAL PRESSURE CO2 43.3 mmHg (35.0-45.0); ABG PARTIAL PRESSURE O2 70.5 mmHg (75.0-100.0); ABG STANDARD HCO3 21.6 MEQ/L (22.0-26.0); ABG TOTAL CO2 23.7 MEQ/L (22.0-29.0); ABG pH (ARTERIAL) 7.331 UNITS (7.350-7.450)
[2018-12-11] MEDS: MEROPENEM INJ 1 GM in APPROPRIATE DILUENT 1 EA IV SCH ×2 (10:15→18:53)
[2018-12-11] MEDS: SENOKOT S TAB PO SCH ×2 (10:17→21:29)
[2018-12-11] MEDS: DOCUSATE SODIUM 100 MG CAP PO SCH ×2 (10:17→21:30)
[2018-12-11 10:23] LABS: BILIRUBIN,DIRECT 0.5 MG/DL (0.0-0.2); BILIRUBIN,TOTAL 0.9 MG/DL (0.2-1.0); C REACTIVE PROTEIN QUANTITATIV 25.6 MG/DL (0.00-0.30); MB/CK RELATIVE INDEX 1.07 (< OR =4); TROPONIN I 4.75 NG/ML (< 0.10)
--- NOTE | 2018-12-11 10:25 | IPNPDOC ---
Subjective Date Seen The patient was seen on 12/11/18. Subjective Chief Complaint/HPI C/o SOB, denies chest pain, constant RLE pain, febrile 101 last night. Objective Physical Examination General Exam: Positive: Alert, Cooperative, Moderate Distress Eye Exam: Positive: PERRLA, Conjunctiva & lids normal, EOMI, Sclera icteric ENT Exam: Positive: Atraumatic Neck Exam: Positive: Supple, +2 carotid pulse wo bruit; Negative: JVD Chest Exam: Positive: Rales (b/l), Wheezing; Negative: Clear to auscultation (Coarse BS b/l with tachypnea), Rhonchi, Diminished, Other Heart Exam: Positive: Rate Normal, Regular Rhythm, Normal S1, Normal S2; Negative: Irregular Rhythm, Gallops, Murmurs, Rubs, Other Abdomen Exam: Positive: Normal bowel sounds, Soft, Other (distended); Negative: Tenderness, Mass Extremity Exam: Positive: Edema (RLE: groin wound malodorous, sloughed skin with underneath erythema with some purulent drainage. Calf wounds: lateral with dark red/ black muscular with yellowish tissue at the edge, medial with yell owish necrotic tissue and purulent drainage. hemarragic blisters fused together, Rt foot swelling ), Normal pulses (Rt DP and PT biphasic and strong, Lt DP and PT biphasic), Tenderness (Tenderness in Rt groin and calf and foot, still paresthetic to Rt foot, some sensation but still no motor function in toes); Negative: Clubbing, Cyanosis, Swelling Skin Exam: Positive: Nl turgor and temperature Neuro Exam: Positive: Normal Speech, Strength at 5/5 X4 ext, Cranial Nerves 3- 12 NL Psych Exam: Positive: Mental status NL, Mood NL, Oriented x 3 Assessment /Plan Assessment 1. Acute pulmonary edema likely d/t volume overload Dyspnea, tachypnea, tachycardia with rales b/l lungs, I/O: 3025/1425 cc last 24 hrs BNP [id number] CXR last night with interstitial markings 2. NonSTEMI Elevated Trop I trending up: from 0.8-1.86-4.12-4.75. EKG: ST depression on V4-6 3. Sepsis Febrile 101 yesterday Surgical wound infection WBC 9.3 4. Groin wound infection, calf wound infection to r/o. Scheduled for debridement this afternoon 5. Anemia H&H 7.5/24.3 vs 7.9/25.2 6. Type 2 DM Plan/VTE VTE Prophylaxis Ordered?: Yes Plan 1. Continue Vancomycin 1g IV q12hrs per Medicine 2. Continue Meropenem 1g IV q8hrs per Medicine 3. Continue Heparin drip per protocol 4. Lasix 40 mg IV x1 5. PRBC x1 per medicine 6. Rt groin wound and calf wounds debridement this pm 7. Await cardiology consult Case discussed with Dr Lopez VS, I&O, 24H, Fishbone Vital Signs/I&O Vital Signs Date Time Temp Pulse Resp B/P (MAP) Pulse Ox O2 Delivery O2 Flow Rate FiO2 12/11/18 08:04 96.1 70 34 116/60 (78) 92 Nasal Cannula 2.0 I&O- Last 24 Hours up to 6 AM 12/11/18 05:59 Intake Total 3020 ml Output Total 1425 ml Balance 1595 ml Laboratory Data 24H LABS Laboratory Tests 2 12/10/18 11:09: Bedside Glucose (Misc Panel) 227H 12/10/18 15:57: Bedside Glucose (Misc Panel) 188H 12/10/18 16:25: Nucleated Red Blood Cells % (auto) 0.2H, Activated Partial Thromboplast Time 30.2, Anion Gap 10, Glomerular Filtration Rate > 60.0, Blood Urea Nitrogen 19H, Creatinine 1.14, Sodium Level 135L, Potassium Level 5.3H, Chloride Level 103, Carbon Dioxide Level 22, Calcium Level 7.7L, Total Creatine Kinase 2049H, Creatine Kinase MB 5.0H, Creatine Kinase MB Relative Index 0.23, Troponin I 0.81H 12/10/18 16:33: Urine Appearance CLEAR, Urine Color YELLOW, Urine pH 5.0, Urine Specific [place] 1.018, Urine Protein NEGATIVE, Urine Glucose (UA) 1+H, Urine Ketones TRACEH, Urine Urobilinogen 0.2, Urine Bilirubin NEGATIVE, Urine Leukocyte Esterase NEGATIVE, Urine Blood NEGATIVE, Urine Nitrite NEGATIVE, Urine WBC (Auto) 1, Urine RBC (Auto) 0, Urine Hyaline Casts (Auto) 0, Urine Bacteria (Auto) NEGATIVE, Urine Squamous Epithelial Cells 0, Urine Mucus (Auto) SMALL, Urine Sperm (Auto) 12/10/18 16:41: Blood Gas Bicarbonate Standard 23.9, Arterial Blood pH 7.513H, Arterial Blood Partial Pressure CO2 27.2L, Arterial Blood Partial Pressure O2 71.5L, Arterial Blood Total CO2 22.2, Arterial Blood HCO3 21.4L, Arterial Blood Base Excess - 0.6, Arterial Blood Oxygen Saturation 94.5L 12/10/18 20:50: Bedside Glucose (Misc Panel) 199H 12/10/18 22:29: Total Creatine Kinase 1971H, Creatine Kinase MB 6.0H, Creatine Kinase MB Relative Index 0.31, Troponin I 1.86#*H 12/10/18 23:40: Blood Gas Bicarbonate Standard 20.9L, Arterial Blood pH 7.461H, Arterial Blood Partial Pressure CO2 26.8L, Arterial Blood Partial Pressure O2 179.7H, Arterial Blood Total CO2 19.5L, Arterial Blood HCO3 18.7L, Arterial Blood Base Excess - 4.3L, Arterial Blood Oxygen Saturation 99.5H 12/10/18 23:44: Nucleated Red Blood Cells % (auto) 0.3H, Anion Gap 13, Glomerular Filtration Rate 57.1, Lactic Acid Level 3.3*H, Blood Urea Nitrogen 23H, Creatinine 1.36H, Sodium Level 137, Potassium Level 5.0, Chloride Level 102, Carbon Dioxide Level 22, Calcium Level 7.7L, Aspartate Amino Transf (AST/SGOT) 209H, Alanine Aminotransferase (ALT/SGPT) 135H, Alkaline Phosphatase 229H, Total Bilirubin 1.0, Total Protein 6.2L, Albumin 2.0L, Albumin/Globulin Ratio 0.48L 12/10/18 23:48: Activated Partial Thromboplast Time 105.8H 12/11/18 04:16: Nucleated Red Blood Cells % (auto) 0.2H, Anion Gap 9, Glomerular Filtration Rate > 60.0, Blood Urea Nitrogen 25H, Creatinine 1.25, Sodium Level 136, Potassium Level 4.6, Chloride Level 104, Carbon Dioxide Level 23, Calcium Level 7.1L, Immature Granulocyte % (Auto) 0.6, White Blood Count 9.3, Red Blood Count 2.72L, Hemoglobin 7.5L, Hematocrit 24.3L, Mean Corpuscular Volume 89.3, Mean Corpuscular Hemoglobin 27.6, Mean Corpuscular Hemoglobin Concent 30.9L, Red Cell Distribution Width 16.3H, Platelet Count 395, Neutrophils (%) (Auto) 82.6H, Lymphocytes (%) (Auto) 9.4L, Monocytes (%) (Auto) 7.3H, Eosinophils (%) (Auto) 0.0, Basophils (%) (Auto) 0.1, Neutrophils # (Auto) 7.7, Lymphocytes # (Auto) 0.9L, Monocytes # (Auto) 0.7, Eosinophils # (Auto) 0.0, Basophils # (Auto) 0.0, Lactic Acid Followup at 4 Hours 1.5, Total Creatine Kinase 1931H, Creatine Kinase MB 14.0H, Creatine Kinase MB Relative Index 0.75, Troponin I 4.12#*H 12/11/18 05:15: Activated Partial Thromboplast Time 126.5*H 12/11/18 09:14: Blood Gas Bicarbonate Standard 21.6L, Arterial Blood pH 7.331L, Arterial Blood Partial Pressure CO2 43.3, Arterial Blood Partial Pressure O2 70.5L, Arterial Blood Total CO2 23.7, Arterial Blood HCO3 22.4, Arterial Blood Base Excess - 3.4L, Arterial Blood Oxygen Saturation 92.5L 12/11/18 09:17: Lactic Acid Level 2.3*H, Whole Blood Ionized Calcium 3.8L, Aspartate Amino Transf (AST/SGOT) 398H, Alanine Aminotransferase (ALT/SGPT) 198H, Alkaline Phosphatase 227H, Total Bilirubin 0.9, Direct Bilirubin 0.5H, Total Creatine Kinase 1983H, Creatine Kinase MB 21.0H, Creatine Kinase MB Relative Index 1.07, Troponin I 4.75*H, C-Reactive Protein, Quantitative 25.60H, JC-Vyx-F-Type Natriuretic Peptide 50497O, Total Protein 7.0, Albumin 2.0L, Albumin/Globulin Ratio 0.40L CBC/BMP Laboratory Tests 12/10/18 16:25 Red Blood Count 3.06 L, Mean Corpuscular Volume 88.2, Mean Corpuscular Hemoglobin 27.5, Mean Corpuscular Hemoglobin Concent 31.1 L, Red Cell Distribution Width 16.2 H, Calcium Level 7.7 L, Total Creatine Kinase 2049 H 12/10/18 23:44 Red Blood Count 2.90 L, Mean Corpuscular Volume 86.9, Mean Corpuscular Hemoglob in 27.2, Mean Corpuscular Hemoglobin Concent 31.3 L, Red Cell Distribution Width 16.2 H, Calcium Level 7.7 L, Aspartate Amino Transf (AST/SGOT) 209 H, Alanine Aminotransferase (ALT/SGPT) 135 H, Alkaline Phosphatase 229 H, Total Bilirubin 1.0, Total Protein 6.2 L, Albumin 2.0 L 12/11/18 04:16 Red Blood Count 2.72 L, Mean Corpuscular Volume 89.3, Mean Corpuscular Hemoglobin 27.6, Mean Corpuscular Hemoglobin Concent 30.9 L, Red Cell Distribution Width 16.3 H, Calcium Level 7.1 L, Total Creatine Kinase 1931 H, Neutrophils (%) (Auto) 82.6 H, Lymphocytes (%) (Auto) 9.4 L, Monocytes (%) (Auto) 7.3 H, Eosinophils (%) (Auto) 0.0, Basophils (%) (Auto) 0.1, Neutrophils # (Auto) 7.7, Lymphocytes # (Auto) 0.9 L, Monocytes # (Auto) 0.7, Eosinophils # (Auto) 0.0, Basophils # (Auto) 0.0 Microbiology Microbiology 12/11/18 Blood Culture, Received Pending 12/10/18 Blood Culture, Received Pending 12/10/18 Blood Culture, Received Pending 12/10/18 Urine Culture, Received Pending 12/10/18 Gram Stain - Final, Resulted 12/10/18 Wound Culture, Resulted Pending YESSENIA MCKEON PA-C Dec 11, 2018 10:25
[2018-12-11] MEDS: PREGABALIN 100 MG CAP (LYRICA) PO SCH ×3 (10:31→21:30)
[2018-12-11] MEDS: CLOPIDOGREL 75 MG TAB PO SCH (10:32)
[2018-12-11] MEDS: PENTOXIFYLLINE 400 MG TAB PO SCH ×2 (10:32→18:48)
[2018-12-11] MEDS: FAMOTIDINE 20 MG TAB PO SCH ×2 (10:32→21:30)
[2018-12-11] MEDS: VITAMIN D 50,000 UNITS CAPSULE (ERGOCALCIFEROL 1.25MG) PO SCH (10:32)
[2018-12-11] MEDS: IPRATROPIUM 0.5MG/ALBUTEROL 2.5MG INH SOL UD 3ML (DUONEB)(J7620) NEB SCH ×3 (11:00→16:42)
[2018-12-11] MEDS: HEPARIN DRIP 25,000 UNITS in APPROPRIATE DILUENT 1 EA IV SCH (11:56)
[2018-12-11] MEDS ORDERED: FUROSEMIDE 20 MG/2 ML VIAL (J1940) IV ONE (12:00)
[2018-12-11] MEDS ORDERED: CALCIUM GLUCONATE 1,000 MG in D5W MINI-BAG PLUS 100 ML IV ONE (12:00)
[2018-12-11] MEDS ORDERED: methylPREDNISolone INJ 125 MG/2 ML VIAL (J2930) IV ONE (12:00)
[2018-12-11] MEDS ORDERED: MIDAZOLAM INJ 2 MG/2 ML VIAL (J2250) As Ordered ONE (13:53)
[2018-12-11] MEDS ORDERED: LIDOCAINE 2% INJ 100 MG/5 ML SDV (FOR ANES.) As Ordered ONE (13:53)
[2018-12-11] MEDS ORDERED: PROPOFOL 200 MG/20 ML VIAL As Ordered ONE (13:53)
[2018-12-11] MEDS ORDERED: ONDANSETRON 4MG/2ML VIAL (J2405) As Ordered ONE (13:53)
[2018-12-11] MEDS ORDERED: fentaNYL 100 MCG/2 ML INJECTION (J3010) As Ordered ONE (13:53)
[2018-12-11] MEDS ORDERED: FUROSEMIDE 100 MG/10 ML VIAL (J1940) As Ordered ONE (15:26)
[2018-12-11] MEDS ORDERED: MORPHINE 10 MG/ML 1ML VIAL (J2270) As Ordered ONE (15:54)
--- NOTE | 2018-12-11 15:54 | IPNPDOC ---
Text Note Date of Service The patient was seen on 12/11/18. NOTE Subjective: Pt notes he was sob this am. Had episodes of hypotension, and fevers overnight, and had received IV fluid resuscitation. Patient was short of breath this morning and received 1 dose of IV Lasix. Overnight his troponin was elevated to greater than 4, although he did not complain of any chest pain. Have discussed with Dr. Lopez, notes that he will take the patient to the OR and plans for local anesthesia, an effort to I&D the right groin wound, this is likely source of infection. Objective: Vitals: (see below) General: No acute distress, laying comfortably in bed. HEENT: Moist mucous membranes. Neck: Mild JVD. No lymphadenopathy Cardiac: RRR, No murmurs Pulm: Coarse crackles at the bases b/l. Extremity wheezing bilaterally Abd: NT/ND + BS Ext: 1-2+ pitting edema bilaterally, no cyanosis. Right distal pulse diminished. Right groin sutures intact, appears infected, along with the fasciotomy wounds on the right lower extremity with mild purulent drainage and necrotic region. Patient also have his associated cellulitis in the right lower extremity. Labs (see below) Images: Assessment/Plan 1. Severe Sepsis secondary to underlying wound infection - Right groin abscess/infected fasciotomy wounds. .- Patient is planned for the OR today for an I&D under local anesthesia. Blood cultures/wound culture sent. Continue vancomycin. Change Cipro/Clinda to meropenem. Trend CRP. 2. NSTEMI- likely multifactorial 2/2 demand ischemia, hypoxia, as well as secondary to underlying sepsis from the patient's infected groin and lower extremity. Patient with ST depressions in the lateral leads. Although patient has no history of heart disease, given his peripheral vascular disease, he may very well have underlying coronary artery disease, for which she will need cardiac catheterization once he is stable. I also discussed case with Dr. Parker, given the patient's NSTEMI, with recognitions for continuing heparin drip, metoprolol, statin, Plavix, and he will see patient with evening. Echocardiogram pending. 3. Acute diastolic heart failure. Started on IV Lasix q4h. low-sodium diet. Avoid IV fluids at this time. Echocardiogram pending 4. Acute COPD exacerbation started on nebulizers. Status post 1 dose of Solu- Medrol. 5. Acute on chronic anemia. Transfused 1 unit PRBC 12/11. 6. Peripheral vascular disease, with near occlusion of the right common femoral artery/iliac artery status post angioplasty by Dr. Lopez. Management per Dr. Lopez 7. Status post right eye hematoma evacuation, right lower extremity fasciotomy compartment syndrome, right. If a, TIA, as if a endarterectomy, thromboembolectomy of SFA, EIA for ALI. 8. Diabetes mellitus sliding scale insulin. 9. Transaminitis likely secondary to underlying sepsis as well as decompensated heart failure. Right upper quadrant ultrasound pending. Hepatitis panel pending. 10. Rhabdomyolysis likely secondary to the above. Continue to monitor. 11. History of hypertension. Hold lisinopril and amlodipine, as patient will be aggressively diuresed. DVT prophy: Heparin drip Overall prognosis guarded, patient is aware, and would like to remain full code for now. I attempted to call sister for an update, however I was unsuccessful. VS,Henriquee, I+O VS, Henriquee, I+O Laboratory Tests 12/10/18 16:25 Red Blood Count 3.06 L, Mean Corpuscular Volume 88.2, Mean Corpuscular Hemoglobin 27.5, Mean Corpuscular Hemoglobin Concent 31.1 L, Red Cell Di stribution Width 16.2 H, Calcium Level 7.7 L, Total Creatine Kinase 2049 H 12/10/18 23:44 Red Blood Count 2.90 L, Mean Corpuscular Volume 86.9, Mean Corpuscular Hemoglobin 27.2, Mean Corpuscular Hemoglobin Concent 31.3 L, Red Cell Distribution Width 16.2 H, Calcium Level 7.7 L, Aspartate Amino Transf (AST/SGOT) 209 H, Alanine Aminotransferase (ALT/SGPT) 135 H, Alkaline Phosp hatase 229 H, Total Bilirubin 1.0, Total Protein 6.2 L, Albumin 2.0 L 12/11/18 04:16 Red Blood Count 2.72 L, Mean Corpuscular Volume 89.3, Mean Corpuscular Hemoglobin 27.6, Mean Corpuscular Hemoglobin Concent 30.9 L, Red Cell Distribution Width 16.3 H, Calcium Level 7.1 L, Total Creatine Kinase 1931 H, Neutrophils (%) (Auto) 82.6 H, Lymphocytes (%) (Auto) 9.4 L, Monocytes (%) (Auto) 7.3 H, Eosinophils (%) (Auto) 0.0, Basophils (%) (Auto) 0.1, Neutrophils # (Auto) 7.7, Lymphocytes # (Auto) 0.9 L, Monocytes # (Auto) 0.7, Eosinophils # (Auto) 0.0, Basophils # (Auto) 0.0 Vital Signs Date Time Temp Pulse Resp B/P (MAP) Pulse Ox O2 Delivery O2 Flow Rate FiO2 12/11/18 12:00 96.3 79 26 135/76 (95) 96 Nasal Cannula 2.0 I&O- Last 24 Hours up to 6 AM 12/11/18 06:00 Intake Total 3020 ml Output Total 1425 ml Balance 1595 ml DOUG YOUNG MD Dec 11, 2018 15:54
[2018-12-11] MEDS ORDERED: FUROSEMIDE 40 MG/4 ML VIAL (J1940) IV SCH (16:00)
[2018-12-11 16:14] LABS: BASO % 0.2 % (0.0-1.0); HEMATOCRIT 31.7 % (42.0-52.0); LYMPH # 0.7 10^3/uL (1.5-4.5); LYMPH % 5.8 % (24.0-44.0); MEAN CORPUSCULAR HGB CONC 30.6 g/dl (32.0-36.5); MEAN CORPUSCULAR VOLUME 91.4 fl (80.0-96.0); MONO # 0.3 10^3/uL (0.0-0.8); MONO % 2.5 % (0.0-5.0); NEUTROPHILS # 10.5 10^3/uL (1.8-7.7); NEUTROPHILS % 90.8 % (36.0-66.0); PLATELET COUNT, AUTOMATED 487 10^3/uL (150-450); RED BLOOD COUNT 3.47 10^6/uL (4.30-6.10); WHITE BLOOD COUNT 11.6 10^3/uL (4.0-10.0)
[2018-12-11] MEDS ORDERED: HumaLOG INSULIN (NovoLOG) PER UNIT As Ordered ONE (16:14)
[2018-12-11 16:15] LABS: HEMOGLOBIN 9.7 g/dl (13.5-17.5)
[2018-12-11] MEDS ORDERED: metroNIDAZOLE/NACL 500MG(5MG/ML)100 ML BAG (S0030) As Ordered ONE (16:31)
[2018-12-11 16:34] LABS: MB/CK RELATIVE INDEX 1.08 (< OR =4); TROPONIN I 4.15 NG/ML (< 0.10)
[2018-12-11] MEDS: metroNIDAZOLE 500 MG in APPROPRIATE DILUENT 1 EA IV SCH (16:35)
[2018-12-11] MEDS ORDERED: IPRATROPIUM 0.5MG/ALBUTEROL 2.5MG INH SOL UD 3ML (DUONEB)(J7620) As Ordered ONE (16:45)
[2018-12-11 16:49] LABS: ABG BASE EXCESS -5.3 (-2.0-2.0); ABG HCO3 20.5 MEQ/L (22.0-26.0); ABG O2 SATURATION 93.1 % (95.0-99.0); ABG PARTIAL PRESSURE CO2 41.3 mmHg (35.0-45.0); ABG PARTIAL PRESSURE O2 71.6 mmHg (75.0-100.0); ABG TOTAL CO2 21.8 MEQ/L (22.0-29.0); ABG pH (ARTERIAL) 7.314 UNITS (7.350-7.450)
[2018-12-11] MEDS: MORPHINE 10 MG/ML 1ML VIAL (J2270) IV PRN ×2 (16:50→17:00)
[2018-12-11] MEDS ORDERED: MORPHINE 4 MG/ML 1ML VIAL/SYRINGE (J2270) As Ordered ONE (16:54)
[2018-12-11 17:30] LABS: ALBUMIN 2.2 GM/DL (3.2-5.2); ALT/SGPT 244 U/L (12-78); BILIRUBIN,DIRECT 1.1 MG/DL (0.0-0.2); BILIRUBIN,TOTAL 1.4 MG/DL (0.2-1.0); BLOOD UREA NITROGEN 25 MG/DL (7-18); CALCIUM LEVEL 7.5 MG/DL (8.5-10.1); CARBON DIOXIDE LEVEL 18 MEQ/L (21-32); CHLORIDE LEVEL 103 MEQ/L (98-107); CREATININE FOR GFR 1.16 MG/DL (0.70-1.30); GLOMERULAR FILTRATION RATE > 60.0 (>56); GLUCOSE, FASTING 275 MG/DL (70-100); MAGNESIUM LEVEL 2.8 MG/DL (1.8-2.4); NT-PRO BNP 15504 PG/ML (<125); PHOSPHORUS LEVEL 5.2 MG/DL (2.5-4.9); POTASSIUM SERUM 5.2 MEQ/L (3.5-5.1); SODIUM LEVEL 136 MEQ/L (136-145); TOTAL PROTEIN 6.7 GM/DL (6.4-8.2)
[2018-12-11] MEDS ORDERED: IPRATROPIUM 0.5MG/ALBUTEROL 2.5MG INH SOL UD 3ML (DUONEB)(J7620) NEB PRN (17:30)
--- NOTE | 2018-12-11 19:48 | REP ---
AP PORTABLE CHEST: 12/11/2018 at 04:16 PM. Clinical history: Postoperative study. Comparison: Portable chest x-rays 12/11/2018, 12/10/2018; CT angiogram chest 12/10/2018. Findings: Some right-sided PICC line terminating in the SVC well above the right atrium. Hyperinflation with underlying COPD. There is interstitial markings quite prominently probably throughout suggesting some underlying fibrosis. Markings are more prominent currently that suggests some superimposed venous hypertension or early interstitial edema. No gross effusion or dense consolidation. Heart not grossly enlarged. Aorta and airway unchanged. Impression: 1. Some underlying chronic COPD and fibrotic changes with fibronodular interstitial densities. No dense consolidation with air bronchograms noted. Increased interstitial markings compared to earlier study suggest superimposed venous hypertension may be present. 2. PICC line with its tip in the SVC unchanged, no pneumothorax, pneumomediastinum, definite effusion or other acute finding. Electronically Signed by Ministerio Arana MD 12/13/2018 11:46 A
[2018-12-11] MEDS: MORPHINE 4 MG/ML 1ML VIAL/SYRINGE (J2270) IV PRN ×2 (20:05→22:48)
--- NOTE | 2018-12-11 21:01 | CR ---
DATE OF CONSULTATION: 12/11/2018 REFERRING PHYSICIAN: Dr. Rogers INDICATION: Elevated troponin. HISTORY OF PRESENT ILLNESS: Mr. Michelle is previously unknown to me. He is a 58-year-old man who was admitted to [facility] for acute ischemic leg and underwent rather extensive revascularization by Dr. Lopez on November 27, 2018. It involved femoral to femoral bypass, iliac endarterectomy, and also myotomy for acute ischemic right lower extremity. In postoperative period, he was doing relatively well but developed abscess in the right groin and was taken emergently to the operating room (OR) today for the incision and drainage. Prior to him going to the operating room today, he started developing elevated troponin. I was asked by Dr. Rogers regarding intervention prior to him going to the OR. Because it appeared that he was getting septic, I did not think there was anything that could be done to improve his odds and that the intervention was medically absolutely necessary. He tolerated the procedure well. I saw him eventually in the intensive care unit in the evening hours. He denies having any history of coronary artery disease. To the best of his knowledge, he has never had any evaluation, at least not in the last few years. He denies any chest discomfort, but he does admit that his dyspnea is worse than his baseline. Currently, the pain in his right lower extremity seems to be under reasonable control. His cardiac enzymes in the last couple of days have been elevated. The last troponin at 1535 hours was 4.1 and it was 4.7 at 9:00 a.m. this morning and 4.1 c consultant today. Yesterday evening, it was 1.9. At no point he had any chest discomfort, but he does complain about fairly significant dyspnea. His ECG reveals sinus rhythm with nonspecific repolarization abnormalities and nonspecific IVCD. There have been variable degree of ST-segment depressions in lateral and precordial leads. PAST MEDICAL HISTORY: 1. Peripheral vascular disease. 2. Hypertension. 3. Dyslipidemia. 4. 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 Type 2 diabetes. ALLERGIES: AMPICILLIN. OUTPATIENT MEDICATIONS: Amlodipine 10 mg a day, atorvastatin 40 mg a day, Invokana 100 mg a day, Plavix 75 mg a day, glimepiride 1 mg a day, HCTZ 12.5 mg a day, lisinopril 20 mg a day, metformin, pentoxifylline, Lyrica and tramadol. SOCIAL HISTORY: The patient is an active smoker until this hospitalization. He smoked at least a pack a day for 48 years. He denies any excessive alcohol, at least recently. FAMILY HISTORY: Positive for vascular and coronary artery disease in first-degree relatives. REVIEW OF SYSTEMS: Currently denies any chest pain. He does report that at his baseline, he is short of breath with fairly minimal activity. There is no paroxysmal nocturnal dyspnea (PND). He did not have any fever prior to his hospitaliation. Denies any history of syncope. Denies any recent bleeding problems. Denies any gastrointestinal problems. The rest as per history of the present illness or otherwise negative. PHYSICAL EXAMINATION: Mr. Michelle is a 58-year-old man who appears to be much older than his calendar age. He is lying flat in intensive care unit (ICU) bed, appears to be mildly dyspneic even though he denies any respiratory distress. His jugular venous pressure (JVP) appears elevated at least 2 or 3 cm even though it is somewhat difficult to mud temperer. He has loud expiratory wheezes throughout both lung lane. I do not appreciate any rhonchi. Heart exam is over shadowed by loud respiratory sounds. I do not appreciate any distinct gallop. There is a faint murmur best heard over the base. Abdomen is mildly obese but soft. There is tenderness toward the wound in his right groin. No guarding. Bowel sounds are positive. Extremities: Have mild edema. There are chronic ischemic changes, more apparent on right lower extremity than left lower extremity. There are faintly positive pulses peripherally. Vital signs: Blood pressure 122/72, heart rate around 100, sinus rhythm. He is afebrile. Saturation 91-92% on 3 liters of oxygen by nasal cannula. Weight is documented at 105.5 kg. LABORATORY: Basic metabolic panel at 1640 hours this afternoon: Sodium 136, potassium 5.2, BUN 25, creatinine 1.2, glucose 275, lactic acid 2.7, magnesium 2.8, bilirubin 1.4, high AST of 442, troponin at 1535 hours was 4.1 and N-terminal pro BNP was 15,000, albumin is 2.2. PTT is therapeutic at 67. CBC: WBC count 11.6, hemoglobin 9.7, hematocrit 31.7, platelet count 487,000. I looked at the patient's echocardiogram that was assigned to be read by Dr. Farmer. He has extensive wall motion abnormalities, and I estimate his overall ejection fraction (EF) around 30-35%. The distal septum and apex are akinetic, and the inferior wall is also virtually akinetic. On top of that, there is a component of aortic stenosis that I estimate about mild to moderate. ASSESSMENT/PLAN: Mr. Michelle is a 58-year-old man who has extensive peripheral vascular disease, underwent a rather large revascularization procedure about 13 days ago and earlier today was taken to the OR to debride an abscess in his right groin. At this point, he is certainly critically ill. On top of his peripheral vascular disease (PVD) and infection, he also suffered [id number] myocardial infarction and has extensive wall motion abnormalities on echocardiogram. I do not believe that he can be taken for a cardiac catheterization in his current condition. I think we will have to continue supportive medical therapy and once his infectious situation gets under control, then we can pursue further invasive cardiac testing. He has been on Plavix and heparin, which will be continued. I am going to discontinue his beta dot because of his wheezing and also component of congestive heart failure, which I consider acutely exacerbated. As far as the management of heart failure is concerned, his blood pressure is soft, but so far acceptable. Consequently, I do not believe that he will be able to receive any of the vasodilators or other antihypertensive medication he was on previously. I will continue diuresing him. His central venous pressure is high. Hopefully it will relieve some of his dyspnea. Provided his blood pressure improves, we can slowly reintroduce some of the vasodilators, hopefully lisinopril or angiotensin-converting enzyme (JOON) inhibitor should be the first choice. I am also hoping that with more diuresis he will feel less short of breath even though I have no doubt that there is a very significant component of respiratory etiology in his dyspnea. His condition is certainly guarded at best, but if he survives this current situation, he will need coronary angiogram and I suspect probably surgical cardiac revascularization will follow. ABRAN
[2018-12-11] MEDS: ATORVASTATIN 20 MG TAB PO SCH (21:29)
[2018-12-11] MEDS: PERCOCET 5MG/325MG TAB PO PRN (21:30)
--- NOTE | 2018-12-11 21:51 | ECGEPIP ---
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
--- NOTE | 2018-12-11 21:52 | ECGEPIP ---
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
--- NOTE | 2018-12-11 22:02 | ECGEPIP ---
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
--- NOTE | 2018-12-11 22:05 | ECGEPIP ---
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
--- NOTE | 2018-12-11 22:09 | ECGEPIP ---
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
[2018-12-11 22:11] LABS: MB/CK RELATIVE INDEX 0.87 (< OR =4); TROPONIN I 3.59 NG/ML (< 0.10)
[2018-12-11] MEDS ORDERED: MIDAZOLAM INJ 2 MG/2 ML VIAL (J2250) IV ONE (23:45)
[2018-12-12] VITALS (26 sets, daily range): BP systolic 76–137; BP diastolic 43–70; O2SAT 98–99
[2018-12-12] MEDS: metroNIDAZOLE 500 MG in APPROPRIATE DILUENT 1 EA IV SCH ×3 (00:06→17:17)
[2018-12-12] MEDS: IPRATROPIUM 0.5MG/ALBUTEROL 2.5MG INH SOL UD 3ML (DUONEB)(J7620) NEB SCH ×5 (00:07→15:36)
[2018-12-12] MEDS: FUROSEMIDE 40 MG/4 ML VIAL (J1940) IV SCH ×4 (00:09→12:53)
[2018-12-12] MEDS: MEROPENEM INJ 1 GM in APPROPRIATE DILUENT 1 EA IV SCH ×3 (01:30→17:25)
[2018-12-12] MEDS: PERCOCET 5MG/325MG TAB PO PRN ×2 (01:31→14:10)
[2018-12-12 03:51] LABS: BASO % 0.1 % (0.0-1.0); HEMATOCRIT 27.4 % (42.0-52.0); HEMOGLOBIN 8.6 g/dl (13.5-17.5); LYMPH # 0.7 10^3/uL (1.5-4.5); MEAN CORPUSCULAR HEMOGLOBIN 27.9 pg (27.0-33.0); MEAN CORPUSCULAR HGB CONC 31.4 g/dl (32.0-36.5); MONO # 0.5 10^3/uL (0.0-0.8); MONO % 5.4 % (0.0-5.0); NEUTROPHILS # 7.8 10^3/uL (1.8-7.7); NEUTROPHILS % 85.9 % (36.0-66.0); PLATELET COUNT, AUTOMATED 414 10^3/uL (150-450); RED BLOOD COUNT 3.08 10^6/uL (4.30-6.10)
[2018-12-12 04:49] LABS: BLOOD UREA NITROGEN 27 MG/DL (7-18); CALCIUM LEVEL 7.6 MG/DL (8.5-10.1); CARBON DIOXIDE LEVEL 24 MEQ/L (21-32); CHLORIDE LEVEL 106 MEQ/L (98-107); CPK CREATINE PHOSPHOKINASE 1442 U/L (39-308); CREATININE FOR GFR 0.99 MG/DL (0.70-1.30); GLOMERULAR FILTRATION RATE > 60.0 (>56); GLUCOSE, FASTING 195 MG/DL (70-100); MB/CK RELATIVE INDEX 0.83 (< OR =4); POTASSIUM SERUM 4.8 MEQ/L (3.5-5.1); SODIUM LEVEL 139 MEQ/L (136-145); TROPONIN I 4.49 NG/ML (< 0.10)
[2018-12-12] MEDS: SODIUM CHLORIDE 0.9% INJ 10 ML SYR IV SCH (06:00)
[2018-12-12] MEDS: HumaLOG INSULIN (NovoLOG) PER UNIT SC SCH ×3 (07:30→17:22)
[2018-12-12] MEDS: MORPHINE 4 MG/ML 1ML VIAL/SYRINGE (J2270) IV PRN ×2 (07:42→15:26)
[2018-12-12 08:05] LABS: ALBUMIN 1.9 GM/DL (3.2-5.2); ALT/SGPT 214 U/L (12-78); BILIRUBIN,DIRECT 0.5 MG/DL (0.0-0.2); BILIRUBIN,TOTAL 0.6 MG/DL (0.2-1.0); TOTAL PROTEIN 6.5 GM/DL (6.4-8.2)
--- NOTE | 2018-12-12 08:56 | REP ---
Right upper quadrant sonography: History: Elevated liver function studies. Findings: Scanning through right upper quadrant of the abdomen demonstrates a nontender dilated gallbladder without evidence of wall thickening, pericholecystic fluid, sludge, or stone. The gallbladder measures up to 10 cm in greatest diameter. Common bile duct is normal measuring 0.4 cm in greatest diameter. There is increased echogenicity and relatively poor insonation of the liver consistent with fatty infiltration of the liver. The liver is felt to be enlarged with a 18.2 cm mid clavicular line craniocaudal dimension. No focal liver lesion is appreciated. The pancreas is largely obscured by abdominal gas. No pancreatic abnormalities observed. There is no evidence of ascites. The right kidney measures 11.6 x 6.7 x 5.8 cm. No hydronephrosis is seen. Impression: Fatty infiltration of the liver. Mild hepatomegaly. Distended gallbladder without evidence of stone, wall thickening or tenderness. Electronically Signed by Darwin Silver MD 12/12/2018 08:47 A
[2018-12-12] MEDS: SENOKOT S TAB PO SCH (09:00)
[2018-12-12] MEDS ORDERED: LEVEMIR (INSULIN DETEMIR) 1 UNITS/0.01ML SC SCH (09:00)
[2018-12-12] MEDS: PENTOXIFYLLINE 400 MG TAB PO SCH ×2 (09:08→17:25)
[2018-12-12] MEDS: PREGABALIN 100 MG CAP (LYRICA) PO SCH ×2 (09:08→17:20)
[2018-12-12] MEDS: FAMOTIDINE 20 MG TAB PO SCH (09:09)
[2018-12-12] MEDS: DOCUSATE SODIUM 100 MG CAP PO SCH (09:09)
[2018-12-12] MEDS: CLOPIDOGREL 75 MG TAB PO SCH (09:09)
[2018-12-12] MEDS: VANCOMYCIN HCL 1,000 MG, VIAL MATE ADAPTER 1 EACH in D5W 250 ML IV SCH (09:12)
--- NOTE | 2018-12-12 09:37 | PHACANCOPD ---
PHARMACY VANCOMYCIN DOSING Pt Demographics Demographics Patient Age:58 , Weight:101.000 , Gender: male Vancomycin Vancomycin indication: WOUND INFECTION Vancomycin Target Ranges: 10-20 mcg/ml Vancomycin Load Y/N: Yes Load Dose Date Time Vancomycin Load Dose: 2GM Date: 12/10/18 Time: 23:00 Vancomycin Dose Date: 12/11/18. Current Vancomycin Dose: [1GM IV Q12H (08:00)] Intermittent Dosing?: No Labs Micro Microbiology 12/11/18 Blood Culture, Received Pending 12/11/18 Blood Culture - Preliminary, Resulted No growth after 24 hours . All specim... 12/10/18 Blood Culture - Preliminary, Resulted No growth after 24 hours . All specim... 12/10/18 Blood Culture - Preliminary, Resulted No growth after 24 hours . All specim... 12/11/18 Stool Occult Blood (OMER) - Final, Complete 12/10/18 Urine Culture, Received Pending 12/11/18 Gram Stain - Final, Resulted 12/11/18 Wound Culture, Resulted Pending 12/11/18 Anaerobic Culture, Resulted Pending 12/10/18 Gram Stain - Final, Resulted 12/10/18 Wound Culture, Resulted Pending Creatinine Clearance Date:12/10/18. Creatinine Clearance: [>60mL/min]. Assessment and Plan Maintaining Current Dose?: Yes Reason for dose change: No Dose Change Pharmacist Note Pharmacist Note 12/12/18: Day #3 IV vancomycin therapy. Trough level today resulted therapeutic at 16.9mcg/ml. Scr has improved at 0.99 today from 1.36 at start of therapy. We will continue to monitor and draw further levels/make dose adjustments if needed. 12/11/18: Day #2 IV vancomycin therapy. Scr remains stable at 1.25 this morning from 1.36 last night. BUN also remains stable. A trough has been scheduled to be drawn tomorrow, 12/12/18, @0700 prior to the 4th dose. Blood, wound, and urine cultures are pending. We will continue to monitor and make dose adjustments if needed. Date: 12/10/18. PharmD note: MULTIPLE IV ABX REGIMEN NOTED. VANCO 2GM LOAD 23:00 TONIGHT OVER 2HRS FOLLOWED BY VANCO 1GM IV Q12H STARTING AT 8AM 12/11/18 A VANCO TROUGH WILL BE ORDERED WHEN HE IS AT [facility] Dec 12, 2018 09:37
[2018-12-12] MEDS ORDERED: FUROSEMIDE 100 MG/10 ML VIAL (J1940) IV ONE (10:15)
[2018-12-12 11:06] LABS: ABG BASE EXCESS -2.8 (-2.0-2.0); ABG HCO3 21.6 MEQ/L (22.0-26.0); ABG O2 SATURATION 97.9 % (95.0-99.0); ABG PARTIAL PRESSURE CO2 36.1 mmHg (35.0-45.0); ABG PARTIAL PRESSURE O2 103.6 mmHg (75.0-100.0); ABG STANDARD HCO3 22.1 MEQ/L (22.0-26.0); ABG TOTAL CO2 22.7 MEQ/L (22.0-29.0); ABG pH (ARTERIAL) 7.395 UNITS (7.350-7.450)
--- NOTE | 2018-12-12 11:23 | IPN ---
DATE: 12/12/2018 Mr. Smith has been relatively unchanged overnight. He was able to maintain his blood pressure but he remained short of breath. Apparently, he slept only a short period of time. When I saw him in the morning, he denied any chest discomfort but says that his breathing is bad. Vital signs: The last set of vital signs reveal blood pressure 90/50, heart rate in low 100s in sinus rhythm. Saturation is mid 90s on 3 liters of oxygen by nasal cannula. He is tachypneic close to 40 breaths per minute and his jugular venous pulse (JVP) is still high. Lungs are reasonably clear to auscultation though I do not appreciate any wheezing or crackles. Heart exam reveals regular rhythm. I do not appreciate any murmur but he has a gallop. Abdomen is soft. It is tender closer to the wound. Bowel sounds are present. There is minimal peripheral edema. He has ischemic changes on both lower extremities but not appreciably changed since yesterday. Neurologically, he is tired and weak, but otherwise, I do not appreciate any focal signs. LABORATORY DATA: Hemoglobin 8.6, hematocrit 27, platelet count 414,000 and WBC count 9. Basic metabolic panel: Sodium 139, potassium 4.8, BUN 27, creatinine 1 and glucose 195. His lactic acid last drawn yesterday afternoon was 2.7, then later in the evening it was down to 1.7. He has very high LFTs. CK total is 1400, CK-MB 12 and troponin 4.5. Albumin is 1.9. ECG this morning reveals nonspecific IVCD of left bundle branch block type of morphology with ST-segment depressions laterally in leads V4-V6. ASSESSMENT AND PLAN: Mr. Smith is a 58-year-old man who presented with ischemic leg and underwent urgent surgery 13 days ago was taken back to the operating room (OR) yesterday for debridement of the abscess in his right groin. Now this condition is complicated by non-ST elevation myocardial infarction (NSTEMI) with severe LV systolic dysfunction and worsening congestive heart failure. At this point, it looks like that congestive heart failure is the dominant problem. He does not have any signs of sepsis. His white count is going down and his abscess was drained yesterday. Unfortunately, his blood pressure is too soft to get any vasodilators. He has been receiving Lasix even though the morning dose was held due to low blood pressure. He just got additional dose of Lasix a few minutes ago. Dr. Cantor got involved and she will assist with treating him with bilevel positive airway pressure (BiPAP) to relieve some of his work of breathing. I spoke repeatedly with Dr. Lopez and I also contacted Dr. Balderrama who covers for interventional cardiology in [place]. He agrees that the patient should go to the [facility] lab[facility] and the arrangements are being currently made. It was his preference that he is admitted on vascular service with cardiology getting involved on a vocational rehabilitation consultant basis. Otherwise, will continue his statin antiplatelet medication and heparin. If his blood pressure drops further, he may need to get pressors but I am hoping that it will not come to that. The fuentes will be how he will respond to noninvasive respiratory support. His condition is certainly critical. ABRAN
--- NOTE | 2018-12-12 12:10 | IPNPDOC ---
Text Note Date of Service The patient was seen on 12/12/18. NOTE Subjective: Patient continues to be short of breath however states his dyspnea has improved since yesterday. He denies any chest pain or palpitations. He notes that his right leg pain is controlled. Of her neck his blood pressure has been borderline, and occasionally maps of 50s. He received a dose of Lasix at midnight, as well as this a.m. and he currently maintaining a map of greater than 65. Given his persistent dyspnea will ask Dr. Cantor for assistance with BiPAP support. Objective: Vitals: (see below) General: No acute distress, laying comfortably in bed. HEENT: Moist mucous membranes. Neck: Mild JVD. No lymphadenopathy Cardiac: RRR, No murmurs Pulm: Coarse crackles at the bases b/l. Extremity wheezing bilaterally Abd: NT/ND + BS Ext: 1-2+ pitting edema bilaterally, no cyanosis. Right distal pulse diminished. Right groin wound status post I&D, along with the fasciotomy wounds on the right lower extremity. Patient also have his associated cellulitis in the right lower extremity. Labs (see below) Assessment/Plan 1. Severe Sepsis secondary to underlying wound infection - Right groin abscess/infected fasciotomy wounds. .- Patient is status post I&D under local anesthesia. Blood cultures/wound culture sent. Continue vancomycin. Change Cipro/Clinda to meropenem. Trend CRP. 2. NSTEMI- likely multifactorial 2/2 demand ischemia, hypoxia, as well as s econdary to underlying sepsis from the patient's infected groin and lower extremity. Patient with ST depressions in the lateral leads. Although patient has no history of heart disease, given his peripheral vascular disease, he may very well have underlying coronary artery disease, for which she will need cardiac catheterization once he is stable. I also discussed case with Dr. Parker, given the patient's NSTEMI, with recognitions for continuing heparin drip, metoprolol, statin, Plavix, and he will see patient with evening. Echocardiogram pending. 3. Acute systolic and diastolic heart failure. On IV Lasix. low-sodium diet. Avoid IV fluids at this time. Echocardiogram with EF 30-35%. Severely wall motion abnormalities. Appreciate Cardio input. Unable to use BB, ACEi, given low BP. Dr. Cantor consulted for Bipap support. 4. Acute COPD exacerbation started on nebulizers. 5. Acute on chronic anemia. Transfused 1 unit PRBC 12/11. 6. Peripheral vascular disease, with near occlusion of the right common femoral artery/iliac artery status post angioplasty by Dr. Lopez. Management per Dr. Lopez 7. Status post right eye hematoma evacuation, right lower extremity fasciotomy compartment syndrome, right. If a, TIA, as if a endarterectomy, thromboembolectomy of SFA, EIA for ALI. 8. Diabetes mellitus sliding scale insulin. 9. Transaminitis likely secondary to underlying sepsis as well as decompensated heart failure. Improving. Right upper quadrant ultrasound noted. 10. Rhabdomyolysis likely secondary to the above. Continue to monitor. 11. History of hypertension. Hold lisinopril and amlodipine, as patient will be diuresed. 12. Metabolic acidosis 2/2 sepsis. Appreciate nephro input. DVT prophy: Heparin drip Overall prognosis guarded, patient is aware, and would like to remain full code for now. I attempted to call sister for an update, however I was unsuccessful. VS,Rigoberto, I+O VS, Henriquee, I+O Laboratory Tests 12/11/18 15:35 Red Blood Count 3.47 L, Mean Corpuscular Volume 91.4, Mean Corpuscular Hemoglobin 28.0, Mean Corpuscular Hemoglobin Concent 30.6 L, Red Cell Distribution Width 16.3 H, Neutrophils (%) (Auto) 90.8 H, Lymphocytes (%) (Auto) 5.8 L, Monocytes (%) (Auto) 2.5, Eosinophils (%) (Auto) 0.0, Basophils (%) (Auto) 0.2, Neutrophils # (Auto) 10.5 H, Lymphocytes # (Auto) 0.7 L, Monocytes # (Auto) 0.3, Eosinophils # (Auto) 0.0, Basophils # (Auto) 0.0 12/11/18 16:44 12/12/18 03:34 Red Blood Count 3.08 L, Mean Corpuscular Volume 89.0, Mean Corpuscular Hemoglobin 27.9, Mean Corpuscular Hemoglobin Concent 31.4 L, Red Cell Distribution Width 16.3 H, Neutrophils (%) (Auto) 85.9 H, Lymphocytes (%) (Auto) 8.0 L, Monocytes (%) (Auto) 5.4 H, Eosinophils (%) (Auto) 0.0, Basophils (%) (Auto) 0.1, Neutrophils # (Auto) 7.8 H, Lymphocytes # (Auto) 0.7 L, Monocytes # (Auto) 0.5, Eosinophils # (Auto) 0.0, Basophils # (Auto) 0.0, Calcium Level 7.6 L, Total Creatine Kinase 1442 H Vital Signs Date Time Temp Pulse Resp B/P (MAP) Pulse Ox O2 Delivery O2 Flow Rate FiO2 12/12/18 11:00 87 96/51 (66) 98 NIPPV (BIPAP/CPAP) 30 105/54 (71) 12/12/18 10:00 3.0 12/12/18 08:56 22 12/12/18 08:00 97.1 I&O- Last 24 Hours up to 6 AM 12/12/18 06:00 Intake Total 2686 ml Output Total 3190 ml Balance -504 ml DOUG YOUNG MD Dec 12, 2018 12:10
[2018-12-12] MEDS: HEPARIN DRIP 25,000 UNITS in APPROPRIATE DILUENT 1 EA IV SCH (12:55)
[2018-12-12] MEDS ORDERED: HEPARIN SOD (PORCINE) 5000 UNITS/ML VIAL IV ONE (13:00)
--- NOTE | 2018-12-12 14:34 | ECHO ---
DATE OF PROCEDURE: 12/11/2018 HEIGHT: 170 cm WEIGHT: 102 kg INDICATION: Hypotension. Elevated troponin. MEASUREMENTS: RV: 2.4 IVS: 0.9 LV: 6.0 LVPW: 0.9 Aortic root: 2.8 LA: 3.4 Left atrial volume index: 21 mL per m2 IVC: 2.3 Mitral E-wave velocity: 128, A-wave 90 E prime septal: 5.6 E prime lateral: 6.5 FINDINGS: The study is of fair technical quality with difficult visualization. Left ventricle is mildly dilated. There are extensive wall motion abnormalities. There is severe hypokinesis, virtually akinesis of mid and distal septum, mid and distal anterior wall apex and distal inferior wall. Remaining inferior wall is at least moderately hypokinetic. The base of the septum and anterolateral and lateral sparks are relatively preserved. Overall left ventricular ejection fraction is estimated approximately 30-35%. Right ventricle does not appear grossly dilated but was poorly visualized. Left atrium is normal size. Right atrium is also normal size. The are aortic valve has 3-cusps. It is heavily sclerotic and there appears to be at least mild restriction of mobility based on 2-D imaging. Mitral and tricuspid valves appear normal. Pulmonic valve was poorly seen but grossly appears normal. No pericardial effusion is noted. Inferior vena cava is dilated and there is no appreciable collapse with respiration indicative likely at least mildly elevated central venous pressure. Aortic root is normal. Aortic arch and abdominal aorta were not seen. Doppler interrogation reveals no aortic insufficiency and probably mild stenosis. Peak gradient is 26 and mean gradient 14 mmHg. There is mild mitral insufficiency. No significant tricuspid and pulmonic insufficiencies were seen. Mitral inflow pattern and tissue Doppler imaging of mitral annulus reveal grade 2 diastolic dysfunction indicative of high left ventricle end-diastolic pressure. CONCLUSIONS: 1. Study is fair technical quality. 2. Mildly dilated left ventricle with extensive wall motion abnormalities as noted above and overall left ventricular ejection fraction (LVEF) estimated around 30-35%. Grade 2 diastolic dysfunction. 3. Aortic sclerosis resulting in mild stenosis. 4. Mild mitral insufficiency. 5. High central venous pressure. 6. Unable to estimate pulmonary artery pressure. COMMENTS: Subacute bacterial endocarditis (SBE) prophylaxis is not recommended. The study is consistent with ischemic cardiomyopathy and congestive heart failure. [facility]
--- NOTE | 2018-12-12 14:52 | CR ---
DATE OF CONSULTATION: 12/12/2018 REQUESTING PHYSICIAN: Brody Rogers MD CONSULTING PHYSICIAN: Tobin Padgett MD REASON FOR CONSULTATION: Management of volume status and hyperkalemia in this patient with sepsis. CHIEF COMPLAINT: The patient was admitted to the hospital on 11/27/2018 with peripheral vascular disease and occlusion of the right common femoral artery. Note, history was obtained from the medical team and from the patient's chart. The patient was unable to provide any reliable history because of his respiratory distress. HISTORY OF PRESENT ILLNESS: Rocky Michelle is a 58-year-old male with a past medical history of diabetes mellitus type 2, hypertension, peripheral vascular disease, history of left iliofemoral bypass grafting in the past. He was admitted on 11/27/2018 because of occlusion of the right external iliac and right common femoral artery, and he was admitted for a erdd-td-ewcgs femoral-femoral bypass. The beginning of the month, he got a re-do of the right profunda femoral artery, external iliac artery, superficial femoral artery, endartarectomy with thromboembolectomy of the superficial femoral artery, external iliac artery. He got the evacuation of the right thigh hematoma 2 days later, and he also got right lower extremity fasciotomy for compartment syndrome. The patient got the infection and abscess in the right groin, and he was emergently taken to the operating room (OR) yesterday because of sepsis. The patient also developed [id number] myocardial infarction (PR), and he was seen by cardiology, as well. Nephrology service was called for further help in the management of the volume status of this patient. He got aggressive fluid hydration yesterday because of sepsis, lactic acidosis, and abscess in the right groin. However, the patient became more short of breath, and I was called for further help in the management of this patient, who is hypotensive and who would probably need diuresis. I saw and examined the patient today morning in the intensive care unit (ICU). He was sitting up in the bed. He was getting the nebulization done, but he was in moderate respiratory distress despite wearing the nasal cannula, and he was requesting morphine because he reports that morphine helps with his air hunger. His lactic acid level has improved. He was given a small dose of Lasix 20 mg intravenous (IV) yesterday. After that, his Lasix doses are being held because of the holding parameters because of low blood pressures. PAST MEDICAL HISTORY: The patient has a past medical history of diabetes mellitus type 2, COPD, chronic active smoker, peripheral vascular disease with multiple peripheral vascular surgeries, morbid obesity, hypertension, hyperlipidemia, history of oral cancer of the lower lip. The patient's baseline creatinine was 1 on 11/28/2018. PAST SURGICAL HISTORY: The patient has a history of left iliofemoral bypass in the past, history of bilateral common iliac artery angioplasty and stenting, status post angiography on 10/19/2018, status post right profunda femoris external iliac and superficial femoral artery endarterectomy during this hospitalization, status post right thigh evacuation of hematoma and fasciotomy during this hospitalization, and status post drainage of the right thigh abscess yesterday. ALLERGIES: The patient is allergic to AMPICILLIN. FAMILY HISTORY: No significant family history of end-stage renal disease requiring hemodialysis. SOCIAL HISTORY: The patient is an active smoker. He denies any illicit drug abuse of alcohol abuse. REVIEW OF SYSTEMS: CONSTITUTIONAL: The patient reports feeling weak and tired. EYES: He denies any blurry vision or double vision. EARS, NOSE, AND THROAT (ENT): He denies any dysphagia or odynophagia. CARDIOVASCULAR: He denies any palpitations or chest pain. RESPIRATORY: He reports significant shortness of breath. GASTROINTESTINAL (GI): He denies any nausea or vomiting. GENITOURINARY: He denies any dysuria or hematuria. MUSCULOSKELETAL: He reports right groin pain at the surgical site. CENTRAL NERVOUS SYSTEM (NEWS CONTENT SPECIALIST): He denies any strokes or seizures. SKIN: He denies any rashes or ulcers. HEMATOLOGICAL AND ONCOLOGICAL: He denies any easy bleeding or bruising. All other review of systems is negative. PHYSICAL EXAMINATION: GENERAL: The patient is awake, alert, oriented times two, in moderate respiratory distress, sitting up in the bed. VITAL SIGNS: Temperature is 97.1 degrees Fahrenheit, blood pressure is 99/52, pulse is 103, respiratory rate of 22, saturating 97% on nasal cannula at 3 liters. INTAKE AND OUTPUT: Urine output recorded is 2.8 liters yesterday, 475 mL so far today since overnight. HEAD AND NECK EXAMINATION: Extraocular muscles intact. Pupils equally round and reactive to light. Neck is supple. I could not appreciate the jugular venous distention (JVD) because of the patient's morbid obesity and body habitus. CARDIOVASCULAR: S1, S2. Tachycardia. About 1+ edema of the lower extremities. RESPIRATORY: Decreased breath sounds bilaterally at the bases. Mild inspiratory crackles bilaterally at the bases up to the midlung zones. Poor inspiratory effort. The patient is having grunting at this point, as well. ABDOMEN: Is soft, obese, no organomegaly was appreciated. GENITOURINARY: Bladder is nonpalpable. No hernia was noted. MUSCULOSKELETAL: The patient has a dressing at the right groin surgical site. Old surgical scar is visible in the left groin, as well. Left extremity is cold. Right extremity is warm. Bilateral upper extremity: Hands are cold, as well. CENTRAL NERVOUS SYSTEM (NEWS CONTENT SPECIALIST): No focal deficit. Power is 5/5 in bilateral upper extremities. SKIN: No rashes or ulcers. LABORATORY REVIEW: CBC showed a WBC of 9, hemoglobin is 8.6, platelets are 414. PTT is 53.7. Urinalysis done on 12/10/2018 showed no protein, no nitrite, no leukocyte esterase. BMP done today morning showed sodium 135, potassium 4.5, chloride 101, bicarbonate 24, BUN 33, creatinine is 1.1, calcium 7.9. MICROBIOLOGY: Wound cultures are pending. Blood cultures are negative so far. IMAGING: Abdominal ultrasound was done today morning. It showed fatty infiltration of the liver, mild hepatomegaly, distant in gallbladder without evidence of stone. CURRENT INPATIENT MEDICATIONS: The patient is currently on heparin drip. He was given calcium gluconate one dose yesterday. He is on meropenem 1 gram intravenous (IV) every 8 hours, Flagyl 500 mg IV every 8 hours, vancomycin 1 gram IV every 12, DuoNebs every 4 hours, Lipitor 40 mg nightly, Plavix 75 mg daily, Senokot one tablet twice a day, famotidine 20 mg by mouth twice a day. He is on Lasix 40 mg IV every 6 hours, but because of the holding parameter, he has not received any dose since yesterday. I gave the patient a dose of furosemide 60 mg IV times one dose. He is on insulin, Levemir 10 units subcutaneously in the morning, insulin Humulin sliding scale. Versed 1 mg IV times one dose was given yesterday. He is on milk of magnesia as needed constipation, morphine as needed for pain, pentoxifylline 400 mg by mouth twice a day, Lyrica 200 mg by mouth three times a day. He is on vitamin D 50,000 units by mouth on Friday. ASSESSMENT: A 58-year-old male with sepsis secondary to right leg wound infection, ebi-[id number]-lguvwmhvb myocardial infarction, decompensated systolic congestive heart failure, anemia secondary to blood loss. PLAN: 1. Acute decompensated systolic congestive heart failure. The patient's blood pressures are running low because of recent sepsis. Systolic blood pressures on A line are in 100s. I gave the patient a dose of Lasix 60 mg IV times one dose. He can continue on Lasix 40 mg IV every 6 hours. At this point, because of respiratory distress, the patient will benefit from bilateral positive airway pressure (BiPAP), as well. I have discussed this with the primary team, Dr. Brody Rogers. We need to get pulmonary service on board, as well. 2. Rlk-XO-jynaxcrcv myocardial infarction. The patient is already on heparin drip. He is already on aspirin, Plavix, and statins. His metoprolol was stopped because of hypotension. The rest of the management is as per cardiology recommendations. 3. Sepsis secondary to right groin wound infection. The patient got the drainage of the abscess done yesterday. He is currently on broad-spectrum IV antibiotics, including meropenem, Flagyl, and vancomycin. Wound cultures are still pending. Lactic acid level is improving, and white cell count is also better today as compared with yesterday. Avoid further aggressive IV fluid hydration because of congestive heart failure. The patient actually needs diuresis at this point. Diuretic dose is as mentioned above. 4. Anemia secondary to acute blood loss. Hemoglobin is 8.6. Transfuse as needed for hemoglobin below 8. 5. Peripheral vascular disease. The patient has extensive history of peripheral vascular disease. He has history of left iliofemoral bypass. He is status post right femoral endarterectomy and thrombectomy. Postoperative course was complicated by right thigh hematoma, which needed evacuation along with fasciotomy and abscess formation and abscess was drained yesterday. Management is as per vascular surgery. Continue broad-spectrum IV antibiotics. 6. Diabetes mellitus type 2. Glucose levels are well controlled. Continue current dose of insulin sliding scale, along with insulin Levemir 10 units subcutaneously daily. 7. History of chronic obstructive pulmonary disease. The patient's current shortness of breath is secondary to a combination of COPD and decompensated congestive heart failure. Okay to continue nebulizations. At this point, the patient is going to be started on noninvasive positive pressure ventilation. The rest of the management is as per pulmonary service. Thank you for involving me in the care of this patient. I shall be happy to follow the patient along with you tomorrow morning. TOTAL CRITICAL CARE TIME SPENT: In the management of this patient in the ICU today morning was 1 hour. ABRAN
--- NOTE | 2018-12-12 15:32 | CR ---
DATE OF CONSULTATION: 12/12/2018 HISTORY OF PRESENT ILLNESS: The patient is a 58-year-old male with a past medical history of chronic obstructive pulmonary disease (COPD), diabetes, peripheral arterial disease, who has had a prolonged hospitalization and multiple complications. He presented initially with claudication in his bilateral lower extremities with the right more significant than the left. The patient has previously undergone a left iliofemoral bypass graft, as well as bilateral common iliac artery angioplasty and stenting. The patient had an angiogram done, which showed complete occlusion of his right external iliac artery and common femoral artery. He had a re-do of his right profunda femoris artery (PFA), EIA, FFA endarterectomy, and a thromboembolectomy of his FFA and EIA for acute limb ischemia. He then had a right lower extremity fasciotomy for compartment syndrome and had evacuation of a right thigh hematoma. The patient had been complaining of increasing shortness of breath for the past few days. Has been getting intravenous (IV) fluids and appeared to have worsening pulmonary edema. Patient was also noted to have some wheezing on exam as well. Patient was started on lasix for diuresis and started on DuoNebs and did get a dose of Solu-Medrol. His chest x-ray did show some increased interstitial markings. There are some emphysematous and fibrotic changes noted, as well. However, his blood pressures have been borderline, limiting the amount of diuresis. The patient had also been noted to have positive cardiac enzymes, likely with demand ischemia, has been on a heparin drip for anticoagulation. Patient was then noted to have a fever with increasing leukocytosis and there was concern for developing abscess in his right groin region. He was therefore taken to the operating room (OR) yesterday for incision and drainage of the right groin abscess. Cardiology was consulted, as well, given his elevated cardiac enzymes. Initially, his troponins had trended down. More recently they have begun to trend up again. He had an echocardiogram done, which showed severe left ventricle (LV) systolic dysfunction, as well as some segmental wall motion abnormalities. This morning, the patient was noted to be in increasing respiratory distress. He has been receiving Lasix periodically. However, some of the doses have been held due to some soft blood pressures. He is making urine. However, has been getting a lot of fluids and is still net positive 2 liters since yesterday. This morning, the patient had become more tachypneic. Appeared to be using accessory muscles and had been complaining of increasing shortness of breath. He did have an episode of chest pain earlier in the morning. However, on my examination, he denied any significant chest pains at that time. PAST MEDICAL HISTORY: Peripheral vascular disease. Hypertension. Hyperlipidemia. History of oral cancer of lower lip. Diabetes. Chronic obstructive pulmonary disease (COPD). ALLERGIES: To AMPICILLIN. OUTPATIENT MEDICATIONS: - amlodipine - atorvastatin - Invokana - Plavix - glimepiride - hydrochlorothiazide - lisinopril - metformin - pentoxifylline - Lyrica - tramadol SOCIAL HISTORY: The patient is an active smoker up until his recent hospitalization. He was at least a pack a day for the past 48 years. FAMILY HISTORY: Positive for vascular and coronary artery disease. REVIEW OF SYSTEMS: Is limited, as the patient is tachypneic and unable to speak in complete sentences. The patient denies any chest pain. He does have some shortness of breath. He denies any significant coughing or wheezing. He denies any abdominal pain or nausea or vomiting. PHYSICAL EXAMINATION: Temperature afebrile, pulse is 103, blood pressure on the arterial line is 104/48, repeat 137/66, saturating 93% on 3 liters nasal cannula. General: The patient is tachypneic. Appears to be in some moderate respiratory distress. Unable to speak in complete sentences. Is using accessory muscles for respiration. Cardiovascular: Tachycardic, regular rate and rhythm, faint murmur at the base. Lungs: Some coarse breath sounds bilaterally with occasional crackles and rhonchi. No wheezing noted on examination bilaterally. Abdomen: obese but soft and nontender. There are bowel sounds present. In the extremities, the patient has dressings in place in the right groin and extending down into the right leg. Peripheral pulses are faint but palpable in the right and palpable in the left foot, as well. LABORATORIES: Complete blood count (CBC): WBC 9.0, hemoglobin 8.6, platelets 414. Chemistry: Sodium 139, potassium 4.8, chloride 106, bicarbonate 24, BUN 27, creatinine 0.99, glucose 195, CRP trending down 21.4, troponin trending up 4.49, BNP 15,504. PTT this morning was 124.2. IMAGES: Chest x-ray 12/11/2018 showed emphysematous and fibrotic changes bilaterally. There is some increased interstitial markings consistent with pulmonary congestion. A peripherally inserted central catheter (PICC) line is in place with the tip in the superior vena cava (SVC). CT angiogram 12/10/2018 shows patchy infiltrates in the right upper lobe, right lower lobe, and lingula. There is bibasilar atelectatic changes with some intralobular septal thickening. There are some multiple mostly peripheral subpleural pulmonary nodules, and there is some bilateral lower lobe pleural thickenings. There is calcified granuloma in the left lower lobe and calcified right hilar mediastinal lymph nodes and calcifications in the spleen consistent with a prior granulomatous disease. ASSESSMENT AND PLAN: The patient is a 58-year-old male with significant peripheral vascular disease, chronic obstructive pulmonary disease, active smoker, diabetes, who presented with acute limb ischemia and status post surgery approximately 13 days ago. The course was complicated by compartment syndrome requiring fasciotomy, as well as with sepsis with fever and leukocytosis secondary to a right groin abscess which is now status post debridement on 12/11/2018. The patient's hospital course was also complicated by [id number] elevation myocardial infarction (NSTEMI) with an echocardiogram showing severe LV dysfunction and with segmental wall motion abnormalities, as well as with worsening congestive heart failure (CHF) and possible cardiogenic shock. His infection source is currently controlled. He has been getting antibiotics, and his leukocytosis and C-reactive protein (CRP) are trending down. He has been on heparin for his NSTEMI and for his peripheral vascular disease, as well as receiving doses of Lasix for his acute decompensated heart failure. However, the patient's blood pressures have been borderline which has been limiting his diuresis, and he is still net positive. This morning, the patient was noted to be in worsening respiratory distress, using accessory muscles. Did not appear to be wheezing on examination. Has been getting DuoNebs. Suspect the wheezing likely 2/2 pulmonary edema secondary to his decompensated heart failure and NSTEMI. Will start bilateral positive airway pressure (BiPAP) to improve work of breathing and to decrease his preload and left ventricle afterload. Will monitor closely. If the patient does not improve with a trial of noninvasive positive pressure ventilation, he may require intubation at that time. The patient will receive additional doses of Lasix and continue to monitor intake and output. Will also place a central venous catheter for vasopressor support and ionotrope as needed. There is also discussion for transfer for interventional cardiology in [place] for a cardiac catheterization and further cardiac management. Would continue to trend cardiac enzymes. Continue with heparin drip as per cardiology and the rest of his cardiac medications. Continue DuoNebs around the clock. Will hold off on any steroids for now. Continue the antibiotics as per his primary team. The patient is FULL CODE. MTDD
[2018-12-12] MEDS ORDERED: DOBUTamine 500 MG/250 ML BAG IN D5W (2,000 MCG/ML) (J1250) As Ordered ONE (15:59)
[2018-12-12] MEDS ORDERED: DOBUTamine HCL 500,000 MCG in APPROPRIATE DILUENT 1 EA IV SCH (16:00)
[2018-12-12] MEDS ORDERED: FUROSEMIDE 40 MG/4 ML VIAL (J1940) IV SCH (16:00)
[2018-12-12] MEDS ORDERED: NOREPINEPHRINE 4 MG/4 ML AMP As Ordered ONE (16:33)
[2018-12-12] MEDS ORDERED: NOREPINEPHRINE BITARTRATE 16 MG in D5W 484 ML IV SCH (16:45)
--- NOTE | 2018-12-12 17:21 | REP ---
Portable chest x-ray: Single view. History: Central line placement. Comparison study: December 11, 2018. Findings: The patient has right-sided PICC line has been removed. A right internal jugular central line has been placed with its tip in the expected location of the superior vena cava. There is no evidence of pneumothorax. Cardiomediastinal silhouette is unremarkable. EKG electrodes are seen. Lung lane are free of infiltrate. Pleural angles are sharp. Impression: Right IJ line in place. No complication seen. Electronically Signed by Darwin Silver MD 12/12/2018 05:13 P
--- NOTE | 2018-12-13 07:05 | RO ---
DATE OF PROCEDURE: 12/12/18 PREPROCEDURE DIAGNOSIS: Non-ST elevation myocardial infarction (NSTEMI). POSTPROCEDURE DIAGNOSIS: Non-ST elevation myocardial infarction. PROCEDURE: Central line insertion. ATTENDING PHYSICIAN: Dr. Cantor ANESTHESIA: Local INDICATION: Shock. Consent was obtained from the patient's daughter prior to the procedure. Indication, risks and benefits were explained at length. PROCEDURE SUMMARY: Central line insertion practice form was completed by independent observer. A time-out was performed and my hands were washed immediately prior to the procedure. Full sterile technique was used throughout the procedure including surgical cap, mask with protective eyewear, full gown and sterile gloves. The patient was placed in Trendelenburg position. The right neck and chest region were prepped using chlorhexidine scrub and draped in sterile fashion using a fenestrated drape. The right internal jugular (IJ) vein was identified using the ultrasound. Anesthesia was achieved over the vein using 1% lidocaine. Using real-time byg-bo-vzxox guidance, the introducer needle was inserted into the right internal jugular vein under direct ultrasound visualization. Venous blood was withdrawn. The syringe was removed and a guidewire was advanced into the introducer needle. The guidewire visualized in the internal jugular vein by ultrasound. The introducer needle was then exchanged over the guidewire. A small incision was placed at the skin surface with a scalpel and the dilator was exchanged over the guidewire. After appropriate dilation was obtained, the dilator was exchanged over the wire for a triple lumen central venous catheter. The wire was removed and the catheter was sutured in place at 18 cm. A sterile dressing was placed over the catheter at the insertion site. The patient tolerated the procedure without any hemodynamic compromise. At time of procedure completion, all ports were aspirated and flushed properly. Postprocedure chest x-ray confirms the right IJ central line is in place with its tip in the superior vena cava (SVC). There is no pneumothorax. MTDD
--- NOTE | 2018-12-13 15:55 | ECGEPIP ---
Stationary ECG Study [facility] Test Date: 2018-12-12 Pat Name: DON CARMONA Department: Room: [place] [address] Gender: M Room Maid: SHAHRIAR : 1960 Requested By: Azaela Parker Order Number: [id number] Reading MD: Azalea Parker Measurements Intervals [place] Rate: 80 P: 39 NE: 120 QRS: 49 QRSD: 122 T: 197 QT: 389 QTc: 449 Interpretive Statements SINUS RHYTHM ANTEROSEPTAL MYOCARDIAL INFARCTION, OF INDETERMINATE AGE ST DEVIATION AND MODERATE T-WAVE ABNORMALITY, CONSIDER LATERAL ISCHEMIA SIMILAR TO 12/11/18 Electronically Signed On 12-13-2018 15:55:01 EST by Azalea Parker
--- NOTE | 2018-12-13 15:58 | ECGEPIP ---
Stationary ECG Study [facility] Test Date: 2018-12-12 Pat Name: DON CARMONA Department: Room: [place] [address] Gender: M Sandwich Hand: SHAHRIAR : 1960 Requested By: DANAY REED Order Number: [id number] Reading MD: Azalea Parker Measurements Intervals [place] Rate: 107 P: 12 MD: 119 QRS: 61 QRSD: 112 T: 211 QT: 311 QTc: 415 Interpretive Statements SINUS TACHYCARDIA WITH SHORT MD INTERVAL POSSIBLE ANTERIOR MYOCARDIAL INFARCTION, PROBABLY OLD ST DEVIATION AND MODERATE T-WAVE ABNORMALITY, CONSIDER LATERAL ISCHEMIA MINIMAL CHANGE SINCE 6:48 SAME DAY Electronically Signed On 12-13-2018 15:58:26 EST by Azalea Parker
--- NOTE | 2018-12-25 11:09 | RO ---
DATE OF PROCEDURE: 12/01/2018 ATTENDING PHYSICIAN: Dr. Laura Lopez BACK END DEVELOPER: None. PREOPERATIVE DIAGNOSES: Right lower extremity compartment syndrome, status post revascularization with right common and external iliac artery angioplasty and stenting and right external iliac artery, common femoral artery, superficial femoral artery and profunda femoris artery endarterectomy, right femoral wounds hematoma evacuation. POSTOPERATIVE DIAGNOSES: Right lower extremity compartment syndrome, status post revascularization with right common and external iliac artery angioplasty and stenting and right external iliac artery, common femoral artery, superficial femoral artery and profunda femoris artery endarterectomy, right femoral wounds hematoma evacuation. INDICATIONS FOR PROCEDURE: The patient is a 58-year-old male who underwent revascularization of his right lower extremity requiring reoperation due to ischemia and who has now been reperfused and now has swelling and compartment syndrome in the right lower extremity. The patient will undergo four compartment fasciotomy of the right lower extremity. The procedure was described and explained to the patient in detail, including drawing of pictures demonstrating the procedure and pertinent anatomy. Risks, benefits and alternative options were discussed with the patient. Alternative treatment options included, but were not limited to no intervention, benefits included but were not limited to release of pressure in the compartments in the calf with improved blood flow and prevention of nerve damage. Risks included but were not limited to infection, bleeding, renal failure requiring hemodialysis, possible need for further open surgical intervention, adverse reaction to the prepping and draping materials, adverse reaction to the anesthetic, possible need for transfusion of blood products, cerebrovascular accident, myocardial infarction, pulmonary embolus, deep venous thrombosis, loss of limb, loss of life, poor outcome, poor results and poor satisfaction. The patient's questions were answered. The patient voices acceptance and understanding of these risks, benefits and alternative options and consents to proceed. There were no promises or guarantees made to the patient regarding the procedure, results and/or outcome. ANESTHESIA: MAC. ESTIMATED BLOOD LOSS: 200 mL IV FLUIDS: 600 mL and 2 units of packed red blood cells SPECIMEN: None. URINE OUTPUT: 50 mL. DRAINS: #10 LEX. PROCEDURE The patient was taken to the operating room, placed on the operating room table and prepped and draped in a standard surgical fashion. The janelle in the femoral incision, as well as the upper thigh incision were removed and there was hematoma noted, which was evacuated. There was no active bleeding noted and the bleeding was secondary to the patient being on heparin drip. Once the hematoma was evacuated, the wound was irrigated and there was good flow noted in the external iliac artery, common femoral artery and profunda femoris artery. The wound was reclosed with #2-0 Vicryl to approximate the deeper layers. Prior to closing the wound, a #10 LEX was placed through a puncture wound in the thigh and brought through the incision in the upper thigh and placed along that incision, as well as into the groin incision. The deeper layers were then closed with #2-0 Vicryl and the skin was closed with janelle. Incisions were then made in the calf in the medial and lateral aspect and the anterior compartment was opened using Metzenbaum scissors. The posterior and deep posterior compartments were opened using Metzenbaum scissors and the lateral compartment was opened using Metzenbaum scissors. The wounds were then packed with saline-soaked gauze and wrapped with Kerlix. All instrument, sponge, needle counts were correct at the end of the case. There were no complications. Dr. Lopez was present for and directed the entire case. The patient was transferred to the recovery room awake, alert, extubated and in stable condition. The results and findings of the procedure were discussed with the patient with all his questions answered.
--- NOTE | 2018-12-28 09:42 | RO ---
DATE OF PROCEDURE: 12/11/2018 PREOPERATIVE DIAGNOSES: Right lower extremity ischemia. Right femoral wound infection. Necrotic right lower extremity fasciotomy wounds. Increasing white blood count with sepsis. POSTOPERATIVE DIAGNOSES: Right lower extremity ischemia. Right femoral wound infection. Necrotic right lower extremity fasciotomy wounds. Increasing white blood count with sepsis. PROCEDURE PERFORMED: Right femoral wound excisional debridement with removal of skin, subcutaneous tissue and muscle. Right medial fasciotomy wound excisional debridement with removal of skin, subcutaneous tissue and muscle. Right lateral fasciotomy wound excisional debridement with removal of skin and subcutaneous tissue and muscle. SURGEON: Dr. Laura Lopez. GRAFFITI CLEANER: Ade Lopez PA-C ANESTHESIA: Monitored anesthesia care (MAC). ESTIMATED BLOOD LOSS: 15 mL IV FLUIDS: 100 mL URINE OUTPUT: 100 mL via [place]ney. LASIX: 60 mg CULTURE: Right groin and thigh wound fluid for culture and sensitivity. WOUND DESCRIPTION: Right medial fasciotomy wound measures 8 cm in length x 4 cm in width and 4 mm in depth. Right lateral fasciotomy wound measures approximately 9 cm in length x 3.5 cm in with an approximately 3 mm in depth. The right femoral wound, which was closed with janelle in place initially measured approximately 8 cm in width x 4 cm in length and approximately 5 cm in depth. The right thigh wound which was closed with janelle initially measured approximately 7 cm in length x 3 cm in width an approximately 4 cm in depth at the completion of the debridement. INDICATION: The patient is a 58-year-old male who underwent endarterectomy of his right external iliac artery femoral artery profunda femoris and superficial femoral artery with subsequent requirement for re-exploration and further endarterectomy of the profunda femoris artery due to ischemia in the right lower extremity. The patient also underwent four-compartment fasciotomy of the right lower extremity. The patient now has signs of sepsis with increasing white blood count and some fluid draining from the right femoral wound and the right upper thigh wound as well as some nonviable tissue in his right lower extremity fasciotomy wound. The patient will undergo exploration of his right femoral and upper thigh wounds as well as debridement of his fasciotomy wounds. The procedure was described explained to the patient in detail including drawing of pictures demonstrating the procedure and the pertinent anatomy. Risks, benefits and alternative options were discussed with the patient. Alternative options included but were not limited to no intervention. Benefits included but were not limited to removal of nonviable tissue with aid in healing and reduction and infection. Risks included but were not limited to infection, bleeding, renal failure requiring hemodialysis, possibly for further surgical intervention, adverse reaction to prepping and draping materials, adverse reaction to the anesthetic possible need for transfusion of blood products, cerebrovascular accident, myocardial infarction, pulmonary embolus, deep venous thrombosis (DVT), loss of limb, loss of life, poor outcome, poor satisfaction and poor results. Risks of not performing the procedure included worsening infection and sepsis with possible . The patient's questions were answered. The patient voices understanding and acceptance of these risks, benefits and alternative options and consents to proceed. There were no guarantees or promises made to the patient regarding the procedure outcome and/or results. DESCRIPTION OF PROCEDURE: The patient was taken to the operating room, placed supine on the operating room table and then prepped and draped in a standard surgical fashion. A time-out was conducted by myself and the team members in the room confirming the correct patient, procedure and laterality. The medial fasciotomy wound was debrided sharply using a scalpel and pickups with removal of all nonviable skin, subcutaneous tissue, and muscle down to healthy bleeding tissue. There were no pockets of pus or purulent material noted. The lateral fasciotomy wound was then sharply debrided using scalpel and pickups again with removal of all nonviable skin, subcutaneous tissue and muscle down to healthy bleeding tissue again with no pus or pockets or collections noted. The janelle in the right thigh wound were removed as well as the janelle in the right femoral wound were removed and the incisions were opened with drainage of foul-smelling fluid that was purulent and smelled anaerobic in nature. Both wounds were opened widely and all nonviable skin, subcutaneous tissue and muscle were sharply debrided using pickups and scalpel. The fluid from both wounds was sent for culture and sensitivity. The wounds were then copiously irrigated. The previous femoral endarterectomy and patch angioplasty were covered and not visualized. The wounds were then packed with saline-soaked gauze and dry dressings applied over the incisions packed with saline-soaked gauze. The fasciotomy wounds were covered with saline-soaked gauze and covered with Kerlix. The patient tolerated the procedure well. All instrument, sponge and needle counts were correct at the end of the case. There were no complications. Dr. Lopez was present for and directed the entire case. The patient was transferred to the recovery room awake, alert, extubated and in stable condition. The procedure results and findings were discussed with the patient in the recovery room with all of his questions answered.
--- NOTE | 2018-12-28 10:16 | RO ---
DATE OF PROCEDURE: 12/11/2018 ATTENDING PHYSICIAN: Dr. Laura Lopez CLAMMER: None. PREOPERATIVE DIAGNOSES: Poor IV access, right lower extremity ischemia, sepsis, infected right femoral and right thigh wound, status post right external iliac artery, common femoral artery, profunda femoris artery endarterectomy with patch angioplasty with XenoSure biologic patch. POSTOPERATIVE DIAGNOSES: Poor IV access, right lower extremity ischemia, sepsis, infected right femoral and right thigh wound, status post right external iliac artery, common femoral artery, profunda femoris artery endarterectomy with patch angioplasty with XenoSure biologic patch. PROCEDURE: Ultrasound-guided left basilic vein midline catheter placement. INDICATION: The patient is a 58-year-old male with poor IV access and needs access for medication insufflation, blood draws who is septic from an infected right groin and thigh wound status post femoral endarterectomy with patch angioplasty. The procedure was described and explained to the patient in detail including drawing of pictures demonstrating the anatomy and the procedure. Risks, benefits, and alternative options were discussed with the patient. Alternative options included but were not limited to no intervention. Benefits included but were not limited to IV access for insufflation of medications and drawing of blood preventing recurrent need for venipuncture and IV placement. Risks included but were not limited to infection, bleeding, possible need for further open surgical intervention, adverse reaction to the prepping and draping materials, adverse reaction to the local anesthetic, cerebrovascular accident, myocardial infarction, pulmonary embolus, DVT, loss of limb, loss to life, poor outcome, poor satisfaction and poor results. Risks of not performing the procedure included but were not limited to continued venipuncture for blood draws and IV placement for insufflation of medication and fluids. The patient's questions were answered. The patient voices understanding and acceptance of these risks, benefits and alternative treatment options and consents to proceed. There were no promises or guarantees made to the patient regarding the procedure and/or outcome. ANESTHESIA: None. ESTIMATED BLOOD LOSS: None. COMPLICATIONS: None. DRAINS: None. SPECIMENS: None. IMPLANTS: None. DESCRIPTION OF PROCEDURE: The patient was placed supine and prepped and draped in a standard surgical fashion. Ultrasound was used to evaluate the left upper extremity veins and the left basilic vein was noted to be widely patent, easily compressible and free of thrombus. Ultrasound was used to guide cannulation of the left basilic vein with real-time concurrent visualization of the entry of the needle into the left basilic vein with a hard copy image preserved. The wire was advanced through the micropuncture needle, which was upsized to a sheath. The midline catheter was advanced through the sheath without difficulty. The introducer sheath was peeled away and removed. The midline catheter was then aspirated and the port was noted to aspirate easily and then flushed with heparinized saline. Dressings were then applied. The patient tolerated procedure well. All instrument, sponge, needle counts were correct at the end the case were no complications. Dr. Lopez was present for and directed the entire case. The patient was in stable condition at the completion of the procedure. The procedure results and findings were discussed with the patient with all of his questions being answered. RADIOLOGY SUPERVISION INTERPRETATION: The ultrasound showed the left basilic vein to be widely patent, easily compressible and free of thrombus. Ultrasound was used to guide cannulation of the left basilic vein with a hard copy image preserved of the real-time concurrent visualization of the entry of the needle into the left basilic vein. The midline was placed without difficulty. The midline catheter is stable for use for access.
--- NOTE | 2018-12-28 13:01 | DSES ---
DATE OF ADMISSION: 11/27/2018 DATE OF DISCHARGE: 11/30/2018 ADMISSION DIAGNOSIS: Right lower extremity ischemia, aortoiliac atherosclerotic arterial occlusive disease, femoral-popliteal arterial atherosclerotic occlusive disease. POSTOPERATIVE DIAGNOSES: Right lower extremity ischemia, aortoiliac atherosclerotic arterial occlusive disease, femoral-popliteal arterial atherosclerotic occlusive disease. HOSPITAL COURSE: The patient was admitted and underwent a right femoral endarterectomy with patch angioplasty and required a subsequent redo patch angioplasty and endarterectomy of the profunda femoris arteries. The patient became septic and developed infection in his right femoral wound and also underwent fasciotomy of the right lower extremity due to ischemia and reperfusion. The patient became hypotensive with sepsis and developed [id number] myocardial infarction and was transferred to [facility] for higher level of cardiac care and evaluation. The patient will follow up as an outpatient once his discharge from the hospital.
--- NOTE | 2018-12-28 15:09 | RO ---
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 PROCEDURE: Right external iliac artery endarterectomy, right common femoral artery endarterectomy, right superficial femoral artery endarterectomy, right profunda femoris artery endarterectomy, right common and external iliac artery angioplasty and stenting with a 10 x 69 Wallstent postdilated with an 8 x 40 mm balloon, abdominal aortogram, pelvic aortogram with iliofemoral angiography cannulation of the left common femoral artery, Mynx closure of the left common femoral arteriotomy. SURGEON: Dr. Laura Lopez APPLICATION PROJECT LEADER: Ade Lopez PA-C INDICATIONS: The patient is a 58-year-old male with aortoiliac atherosclerotic occlusive disease of his right external iliac artery and right common femoral artery with reconstitution of his right superficial femoral and profunda femoris artery via collaterals. The patient also has high-grade stenosis in his right common iliac artery. The patient will undergo a recanalization of the right external iliac artery with angioplasty, stenting and endarterectomy of the right external iliac and common femoral artery. The procedure was explained and described to the patient in detail, including drawing of pictures demonstrating the procedure and anatomy. Risks, benefits, and alternative treatment options were discussed with the patient. Alternative treatment options included but were not limited to no intervention. Benefits included but were not limited to congregation of blood flow into the right lower extremity with relief of symptoms. Risks included but were not limited to infection, bleeding, renal failure requiring hemodialysis, possible need for open surgical intervention, retroperitoneal hematoma, adverse reaction to prepping and draping materials, adverse reaction to the anesthesia and headache, cerebrovascular accident, myocardial infarction, pulmonary embolism, deep vein thrombosis (DVT), possible need for transfusion of blood products, loss of limb, loss of life, poor outcome, poor results and poor satisfaction. Risks of not performing the procedure included but were not limited to continued ischemia of the right lower extremity with possible loss of limb. Patient's questions were answered. The patient voices acceptance and understanding of these risks, benefits, and alternative treatment options and wants to proceed. There were no promises or guarantees made to the patient regarding the results and/or outcome of the procedure. ANESTHESIA: General endotracheal. ESTIMATED BLOOD LOSS: 1500 mL IV FLUIDS: 4000 mL of crystalloid, one unit of packed red blood cells. FLUOROSCOPY TIME: minutes CONTRAST: 3 mL of Isovue 300. SPECIMENS: Right external iliac artery, common femoral artery, superficial femoral artery, and profunda femoris artery plaque. HEPARIN: 7000 units. COMPLICATIONS: None. DRAINS: None. IMPLANTS: Left common femoral arteriotomy closure with a Mynx closure device, right common and external iliac artery angioplasty stent with a 10 mm x 69 mm Wallstent. DESCRIPTION OF PROCEDURE: The patient was taken to the operating room, placed supine on the operating table and then prepped and draped in the standard surgical fashion. A time-out was conducted by myself and members of the surgical team confirming correct patient, procedure and laterality. An incision was then made obliquely in the right femoral region with a scalpel. The incision was carried down through the subcutaneous tissue using Bovie electrocautery. Femoral sheath was identified and opened longitudinally exposing the right common femoral artery. Right common femoral artery was sharply dissected proximally and distally down to the bifurcation of the fundus femoris and superficial femoral artery, which were resected and encircled with vessel loops. The plaque extended common femoral artery into the external iliac artery and the inguinal ligament was dissected free and retracted cephalad exposing the right external iliac artery. A clamp was then placed around the right external iliac artery under the inguinal ligament. The side branches and profunda femoris and superficial femoral artery were controlled with vessel loops. An arteriotomy was then made and elongated proximally and distally using Thrasher scissors. There was extensive plaque in the external iliac artery, common femoral artery down to the junction of the superficial femoral and profunda femoris artery. Endarterectomy was performed of the profunda femoris artery, common femoral artery, and external iliac artery as high as possible. There was continued plaque and occlusion of the external iliac artery proximally. Superficial femoral artery was also noted to be occluded. Endarterectomy of the proximal superficial femoral artery was performed without any black bleeding noted from the superficial femoral artery. Attempts were made to recannulate the external iliac artery and common iliac artery without success. The left common femoral artery was then cannulated with a micropuncture needle after anesthetizing the overlying skin with 1% lidocaine mixed with 0.5% Marcaine. Micropuncture wire was advanced through the micropuncture needle, which was upsized to a micropuncture sheath. A Bentson wire was advanced through the micropuncture sheath, which was upsized to a #5-Syriac sheath. The Omni Flush catheter was advanced over the Bentson wire, placed in the aorta and an aortogram was performed. Catheter was pulled down level with the bifurcation of the iliac artery, and a pelvic aortogram and iliofemoral angiography was performed. The Omni Flush catheter and angled Glidewire were then used to traverse through the common iliac artery and recanalize the occluded external iliac artery with the wire brought out through the arteriotomy. The common iliac and external iliac artery on the right were then angioplastied and stented with a 10 mm x 69 mm Wallstent, which was postdilated with an 8 mm x 40 mm balloon via the right femoral approach. There was excellent inflow noted once angioplasty and stenting was performed. The external iliac artery was then clamped just below the stent and the arteriotomy, and the external iliac, common femoral, profunda femoris, and superficial femoral artery were closed using a XenoSure Biologic Patch and #6-0 Prolene suture in a running continuous fashion. Hemostasis was then obtained. A completion pelvic aortogram with iliofemoral angiography was performed showing the stent to be widely patent with good flow into the external iliac artery on the right with good filling of the common femoral artery and profunda femoris artery. The superficial femoral artery was noted to be occluded. The catheters and wires were removed and a Mynx closure device was used to close the arteriotomy in the left common femoral artery with an additional 10 minutes of adjunctive pressure applied for hemostasis. The right femoral wound was closed using #2-0 Vicryl to approximate the deeper layers and janelle to approximate the skin. Dressings were applied. The patient tolerated the procedure well. All instrument, sponge, and needle counts were correct at the end of the case. There were no complications. Dr. Lopez was present for and directed the entire case. The patient was transferred to the recovery room awake, alert, extubated and in stable condition with improved perfusion of the right lower extremity. RADIOLOGIC SUPERVISION INTERPRETATION: Initial aortogram showed the renal arteries to be patent, as well as the aorta down to the bifurcation of the iliac artery. The left common iliac, external and internal iliac arteries were patent. The right common iliac artery was patent, but there was occlusion of the right external iliac artery. Cannulation was attempted from the right femoral endarterectomy site without success. The occluded external iliac artery was unable to be cannulated and re-entered into the common iliac artery on the right. The recanalization was then performed via a left femoral approach with an Omni Flush catheter and a Glidewire, which was able to be passed through the external iliac artery occlusion on the right and brought out the endarterectomy site. The right common iliac artery showed diffuse atherosclerotic occlusive disease, and the right common iliac and external iliac arteries were angioplastied and stented with a 10 mm x 69 mm Wallstent, postdilated with an 8 mm x 40 mm balloon with a completion angiogram showing good flow through the common iliac artery and stented portion of external iliac artery out the arteriotomy site. A patch angioplasty was performed of the endarterectomy site, and a completion aortogram showed excellent flow to the right common iliac artery, external iliac artery, common femoral artery, and profunda femoris artery. There was no visualization below the groin region. A Mynx closure device was used to close the arteriotomy in the left common femoral artery.
--- NOTE | 2018-12-28 15:40 | RO ---
DATE OF PROCEDURE: 11/30/2018 PREOPERATIVE DIAGNOSES: Worsening right lower extremity ischemia, status post right common and external iliac artery angioplasty with stenting and right external iliac artery, common femoral artery, profunda femoris artery, and superficial femoral artery endarterectomy with patch angioplasty with XenoSure Biologic Patch. POSTOPERATIVE DIAGNOSIS: Worsening right lower extremity ischemia, status post right common and external iliac artery angioplasty with stenting and right external iliac artery, common femoral artery, profunda femoris artery, and superficial femoral artery endarterectomy with patch angioplasty with XenoSure Biologic Patch. PROCEDURE: Right profunda femoris artery endarterectomy with patch angioplasty with XenoSure Biologic Patch, thromboembolectomy of the right external iliac artery, common femoral artery, and profunda femoris artery. SURGEON: Dr. Laura Lopez PIPE ORGAN TECHNICIAN: Ade Lopez PA-C ANESTHESIA: General endotracheal. 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 The patient did well postoperatively but now has had decreased perfusion in the right lower extremity. Patient will undergo explant of the right external iliac artery, femoral artery, profunda femoris with possible bypass. The procedure was described to the patient in detail, including drawing of pictures demonstrating the procedure and pertinent anatomy. Risks, benefits, and alternative treatment options were discussed with the patient. Alternative treatment options included, but were not limited to, no intervention. Benefits included, but were not limited to, mormon of blood flow to the right lower extremity. Risks included, but were not limited to, infection, bleeding, renal failure requiring hemodialysis, possible need for further open surgical intervention, possible need for femoral to distal bypass grafting, adverse reaction to prepping and draping materials, adverse reaction to anesthetic medication, possible need of transfusion blood products, retroperitoneal hematoma, cerebrovascular vascular accident, myocardial infarction, pulmonary embolus, deep venous thrombosis (DVT), loss of limb, loss of life, poor outcome, poor result, and poor satisfaction. All of the patient's questions were answered. The patient voiced understanding and acceptance of the risks, benefits, and alternative treatment options. There were no promises or guarantees made to the patient regarding the procedure results and/or outcome of. ESTIMATED BLOOD LOSS: 400 mL. INTRAVENOUS (IV) FLUIDS: 1400 mL. SPECIMENS: Right profunda femoris plaque. HEPARIN: 7000 followed by an additional 3000 unit bolus. URINE OUTPUT: 550 mL. COMPLICATIONS: None. DRAINS: None. Arteriotomy closure with the XenoSure Biologic patch. DESCRIPTION OF PROCEDURE: The patient was taken to the operating room, placed supine on the operating room table and then prepped and draped in a standard surgical fashion. A time-out was conducted by myself and the team members in the room confirming the correct patient, procedure and laterality. The janelle in the right groin were removed exposing the previously patched right external iliac artery, common femoral artery and profunda femoris artery. An incision was made longitudinally in the thigh to better expose the profunda femoris artery and superficial femoral artery which was occluded, and there was poor flow noted in the profunda femoris artery with thrombosis of the right external iliac artery and common femoral artery. The patch was removed from the previous endarterectomy, and patch angioplasty and thrombus was removed with thromboembolectomy of the right external iliac artery and common femoral artery. There was thromboembolectomy performed of the profunda femoris artery with good backbleeding noted, but there was plaque noted in the secondary and tertiary branches of the profunda femoris artery and a repeat profunda femoris endarterectomy was performed that was then closed using a XenoSure Biologic patch to close the arteriotomy in the right external artery, common femoral artery, and profunda femoris artery. Hemostasis was then obtained, and there was good flow noted in the right profunda femoris artery at the completion of the patch angioplasty. The deeper layers were closed using #2-0 Vicryl suture. The skin was closed using janelle. Dressings were applied. The patient tolerated the procedure well. All instrument, sponge and needle counts were correct at the end the case. There were no complications. Dr. Lopez was present for and directed the entire case. The patient was transferred to the recovery room awake, alert, extubated and in stable condition.
== END 2018-12-12 18:39 | disposition short-term general hospital (02) | DRG 169 ==
LOC: M OR 07:46 → M PCU 20:29 → M MS5PR 12-08 13:45 → M PCU 12-10 17:03 → M ICU 12-11 16:53
PROVIDERS: ADMIT Surgery Vascular Surgery; ATTEND Surgery Vascular Surgery
PROC: 04CK0ZZ Extirpation of Matter from Right Femoral Artery, Open Approach (ICD-10-PCS; 2018-11-27)
PROC: 047H3DZ Dilation of Right External Iliac Artery with Intraluminal Device, Percutaneous Approach (ICD-10-PCS; 2018-11-27)
PROC: 047C3DZ Dilation of Right Common Iliac Artery with Intraluminal Device, Percutaneous Approach (ICD-10-PCS; 2018-11-27)
PROC: 04CC0ZZ Extirpation of Matter from Right Common Iliac Artery, Open Approach (ICD-10-PCS; 2018-11-27)
PROC: B41D1ZZ Fluoroscopy of Aorta and Bilateral Lower Extremity Arteries using Low Osmolar Contrast (ICD-10-PCS; 2018-11-27)
PROC: 04UK0KZ Supplement Right Femoral Artery with Nonautologous Tissue Substitute, Open Approach (ICD-10-PCS; 2018-11-27)
PROC: 30233N1 Transfusion of Nonautologous Red Blood Cells into Peripheral Vein, Percutaneous Approach (ICD-10-PCS; 2018-11-27)
PROC: 04UH0KZ Supplement Right External Iliac Artery with Nonautologous Tissue Substitute, Open Approach (ICD-10-PCS; 2018-11-27)
PROC: 04CH0ZZ Extirpation of Matter from Right External Iliac Artery, Open Approach (ICD-10-PCS; principal; 2018-11-27 11:30)
PROC: 04CK0ZZ Extirpation of Matter from Right Femoral Artery, Open Approach (ICD-10-PCS; 2018-11-30)
PROC: 04UK0KZ Supplement Right Femoral Artery with Nonautologous Tissue Substitute, Open Approach (ICD-10-PCS; 2018-11-30)
PROC: 04CH0ZZ Extirpation of Matter from Right External Iliac Artery, Open Approach (ICD-10-PCS; 2018-11-30)
PROC: 04UH0KZ Supplement Right External Iliac Artery with Nonautologous Tissue Substitute, Open Approach (ICD-10-PCS; 2018-11-30)
PROC: 0KNS0ZZ Release Right Lower Leg Muscle, Open Approach (ICD-10-PCS; 2018-12-01)
PROC: 0JCL0ZZ Extirpation of Matter from Right Upper Leg Subcutaneous Tissue and Fascia, Open Approach (ICD-10-PCS; 2018-12-01)
PROC: 02HV33Z Insertion of Infusion Device into Superior Vena Cava, Percutaneous Approach (ICD-10-PCS; 2018-12-03)
PROC: 0KBQ0ZZ Excision of Right Upper Leg Muscle, Open Approach (ICD-10-PCS; 2018-12-11)
PROC: 05HC33Z Insertion of Infusion Device into Left Basilic Vein, Percutaneous Approach (ICD-10-PCS; 2018-12-11)
PROC: B54NZZA Ultrasonography of Left Upper Extremity Veins, Guidance (ICD-10-PCS; 2018-12-11)
PROC: 02HV33Z Insertion of Infusion Device into Superior Vena Cava, Percutaneous Approach (ICD-10-PCS; 2018-12-12)
DX: I70.213 Atherosclerosis of native arteries of extremities with intermittent claudication, bilateral legs (principal); I21.4 Non-ST elevation (NSTEMI) myocardial infarction; R65.20 Severe sepsis without septic shock; I50.21 Acute systolic (congestive) heart failure; M62.82 Rhabdomyolysis; E87.2 Acidosis; L03.115 Cellulitis of right lower limb; A41.9 Sepsis, unspecified organism; E11.51 Type 2 diabetes mellitus with diabetic peripheral angiopathy without gangrene; I11.0 Hypertensive heart disease with heart failure; M79.A21 Nontraumatic compartment syndrome of right lower extremity; J44.1 Chronic obstructive pulmonary disease with (acute) exacerbation; E87.5 Hyperkalemia; D62 Acute posthemorrhagic anemia; E78.00 Pure hypercholesterolemia, unspecified; F17.210 Nicotine dependence, cigarettes, uncomplicated; Z79.84 Long term (current) use of oral hypoglycemic drugs; Z79.891 Long term (current) use of opiate analgesic; Z88.1 Allergy status to other antibiotic agents; Z85.818 Personal history of malignant neoplasm of other sites of lip, oral cavity, and pharynx; K59.09 Other constipation; T40.2X5A Adverse effect of other opioids, initial encounter; Y83.8 Other surgical procedures as the cause of abnormal reaction of the patient, or of later complication, without mention of misadventure at the time of the procedure; M96.841 Postprocedural hematoma of a musculoskeletal structure following other procedure; T81.49XA Infection following a procedure, other surgical site, initial encounter; Z79.899 Other long term (current) drug therapy